=== PATIENT | female | born 1955 | race Caucasian/White ===

== ENCOUNTER 2021-08-24 07:53 | Outpatient (CLI) | payer MEDICARE, BC, SELFPAY ==
[2021-08-24 11:19] LABS: Albumin* 3.9 g/dL (3.3-5.0)
[2021-08-24 11:20] LABS: Chloride* 106 mmol/L (96-114); Potassium* 4.6 mmol/L (3.6-5.1); Sodium* 136 mmol/L (135-149)
[2021-08-24 11:22] LABS: Aspartate Amino Transferase* 24 U/L (12-35); Bilirubin Total* 0.3 mg/dL (0.1-1.5); Carbon Dioxide* 24 mmol/L (20-32); Cholesterol* 187 mg/dL (90-199); Creatinine* 0.9 mg/dL (0.5-1.5); Estimated Glomerular Filt Rate 70 ml/min; Total Protein* 6.1 g/dL (6.0-8.3)
[2021-08-24 11:23] LABS: Alanine Aminotransferase* 17 U/L (4-35); Alkaline Phosphatase* 68 U/L (40-150); Blood Urea Nitrogen* 15 mg/dL (7-30); Calcium* 9.6 mg/dL (8.4-10.6); Glucose* 100 mg/dL (60-115); HDL Cholesterol* 70 mg/dL (>=50); LDL Cholesterol Calculated 90 mg/dL (<100); Triglycerides* 134 mg/dL (40-149)
[2021-08-24 12:03] LABS: Thyroid Stimulating Hormone* 0.307 uIU/mL (0.270-4.20)
--- OUTSIDE RECORDS SUMMARY | 2021-09-14 17:08 | XMS_ITS | Continuity of Care Document ---
:1955 Author Organization [facility] Address [address] [address] [place] [address] Phone Care Team Providers Name Role Phone Unavailable Unavailable Unavailable Allergies, Adverse Reactions, Alerts Substance Reaction Status Criticality No Known Allergies Active No Informatio n Medications Medication Instructions Dosage Effective Dates Status Comment s (start - stop) Vitamin D3 100 mcg take 2 tablet by - Active (4,000 unit) capsule oral route every day Vitamin C 500 mg take 1 by Oral 1 - Active tablet route every day lutein 40 mg capsule - Active Probiotic 10 billion take 3 by Oral 3 - Active cell capsule route every day TURMERIC (unknown take 2 capsule by Not Available - Activ e strength) oral route every week 1500 mg each Toño Mag Zinc Plus D3 - Active 333 mg-133 unit-133 mg-5 mg tablet gabapentin 300 mg take 3 capsule by 900 MG - Active capsule ORAL route 3 times every day rizatriptan 10 mg take 1 Tablet by 10 MG - Active tablet oral route as needed magnesium 400 mg (as take 1 by oral 1 - Active magnesium oxide) route every day tablet omega 9-zgn-fny-fish take 1 Capsule by 1 Capsule - Activ e oil 1,000 mg (120 Oral route every mg-180 mg) capsule day trazodone 100 mg take 1 Tablet by 100 MG - Active tablet oral route every bedtime as needed rosuvastatin 5 mg take 1 tablet by 5 MG - Active tablet oral route every day levothyroxine 112 take 1 tablet by 112 MCG - Active mcg tablet oral route every day Procedures Procedure Date Offic/outpt E&m Estab Minor Offic/outpt E&m New Mod Sever Advance Directives Directive Yes / No Effective Date File Name No Information Encounters Encounter Practice Location Reason(s) Diagnoses Date Provider Provide rs Description For Visit Copied on Encounter Offic/outpt [facility] GI Constipation, No Re ferring E&m Estab [facility] Symptoms unspecified Information Pro vider: [facility], or constipation 1 Referral [address] Concerns typeAbnormal Self. [address], (chief CT scan, [facility] complaint) small bowel [place], [place], [id number], tel:[phone] [facility] No No [facility] Information [facility], [address] [address], [place], [place], [id number], [place] tel:[phone] Offic/outpt [facility] GI Constipation, No Re ferring E&m New Mod [facility] Symptoms unspecified Information P sravanthider: Destin FOSTER, or constipation 1 Cameron [address] Concerns typeAbnormal [place] [address], (chief CT scan, , [facility]) small bowel [address] [place], [place], [place], [id number], [facility], [address]. tel:[phone] tel:[phone] [id number] [facility] No No [facility], [address] [address], [place], [place], [id number], [place] tel:[phone] [facility] No Cori [facility], [address] [address], [address] [place], [place] [address], [place], [place], [place], [id number], [place], [id number], tel:[phone] tel:[phone] Family History Family Member Type Diagnosis Age At Onset Mother Problem (finding) Thyroid disorder Immunizations Vaccine Date Status Comments SARS-COV-2 (COVID-19) vaccine, administered N ote: [facility] bi-directional mRNA, spike protein, LNP, interf naty ; Source: Other preservative free, 100 mcg/0.5mL Registry dose Prevnar 13 administered Note: [facility] bi-di rectional interface ; Sour ce: Other Registry influenza, high dose seasonal, administered N ote: [facility] bi-directional preservative-free interface ; So urce: Other Registry tetanus toxoid, reduced administered Note: [facility] bi-directional diphtheria toxoid, and acellular interface ; Source: Other pertussis vaccine, adsorbed Fanny stry Influenza, injectable, Madin administered Not e: [facility] bi-directional Imelda Canine Kidney, interface ; Source: Other preservative free, quadrivalent Registry Afluria Qd administered Note: [facility] bi-directional interface ; Sour ce: Other Registry Afluria Qd administered Note: [facility] bi-directional interface ; Sour ce: Other Registry zoster vaccine, live administered Note: [facility] bi-directional interface ; Sour ce: Other Registry Influenza, seasonal, injectable, administered Note: [facility] bi-directional preservative free interface ; So urce: Other Registry Novel [id number], administered Note: M [facility] bi-directional preservative-free, injectable in [facility] ; Source: Other Registry Influenza, seasonal, injectable administered Note: [facility] bi-directional interface ; Sour ce: Other Registry tetanus toxoid, reduced administered Note: [facility] bi-directional diphtheria toxoid, and acellular interface ; Source: Other pertussis vaccine, adsorbed Fanny stry tetanus and diphtheria toxoids, administered Note: [facility] bi-directional adsorbed, preservative free, for interface ; Source: Other adult use (2 Lf of tetanus Simone try toxoid and 2 Lf of diphtheria toxoid) Payers Payer name Insurance type Covered democrat ID Authorization(s ) [employer] [id number] Social History Type Description Quantity Date Captured Comments Alcohol Use Details Unknown Caffeine Use Details Unknown Tobacco Use Status No Information Smoking Status undefined Sex Female Vital Signs Date / Height Weight BMI Pulse Blood Temperature Respiratory Body Head Head Circ. Wt./Quinn. BMI Pulse Inhaled Time: Rate Pressure Rate Surface Circumference Percenti le Percentile percentile Ox Ox Area 63.00 59.874 in kg 8 10:35 (132.00 kg/m AM lbs) monicaer (2) Chief Complaint And Reason For Visit From encounter dated '04/28/2020 10:35'. GI Symptoms or Concerns (chief complaint). Description: Kizzy Carolina is a 64-year-old female who presents for a followup visit. The patient did consent for visit being held over the computer and was the only person present on the call. The patient was referred to us in March for evaluation of an abnormal CAT scan. For further details of the history, please refer to my note from March 19.In late 2019, she was diagnosed with pneumonia and was given a Z-Matt as well as prednisone. She had a cracked tooth in early February and was given some amoxicillin. She began having some diarrhea. Stool testing for C. diff was checked, which was negative. She was empirically prescribed Flagyl, which was not helpful. She was then started on probiotics and encouraged to eat more fermented food which helpedslightly.She had an abdominal x-ray done which showed a moderate amount of stool in the colon. She was asked to do a Fleet enema and suppositories which were slightly helpful. She then had a CT of her abdomen and pelvis with IV contrast, which revealed moderately large amount of colonic stool and lessamount of gas scattered throughout the colon and rectum and the colon was described as tortuous and capacious. There were a few mildly thickened areas of the small intestine, but no ascites or lymphadenopathy. There was also a small esophageal sliding hiatal hernia. GI consultation was suggested for possible PillCam evaluation.The patient was having better bowel movements after the Fleet enemas and suppositories, but she was still having bowel movements only every 2 to 3 days which were soft and unformed.When I saw her for a virtual visit, I asked her to start doing MiraLax on a daily basis and if she developed the diarrhea, then decrease the dose to half a capful daily. We discussed further evaluation with MR enterography, which we completed on April 08. This was completely unremarkable with noabnormal evidence of small bowel or evidence of bowel wall thickening or mucosal hyperenhancement.She follows up today stating that she took MiraLax once and developed diarrhea, so she did not take it again. She subsequently has been using turmeric, probiotics, and rancho tea, which she states has been helpful and has reduced her abdominal discomfort and constipation. She states that she is still having bowel movements every 2 to 3 days; however, if she goes that long without a bowel movement, she will cook up some prunes and that helps produce bowel movements. Reason For Referral Reason For Referral No Information Plan Of Treatment Date Type Action Status Referral Ordered: ordered MRI Enterography WITHOUT And WIT H Contrast Appointment date/timeframe: 04/03/2020 History Of Present Illness Encounter Date Complaint History Of Present I llness GI Symptoms or Concerns Kizzy Carolina i s a 64-year-old female who presents for a [facility] visit. The patient did consent for visit be ing held over the computer and was the only per son present on the call. The patient was refe rred to us in March for evaluation of an abn ormal CAT scan. For further details of t he history, please refer to my note from .In late 2019, she was diagnosed wi th pneumonia and was given a Z-Matt as well as p rednisone. She had a cracked tooth in ear ly February and was given some amoxicillin. Nakul parada began having some diarrhea. Stool test ing for C. diff was checked, which was n egative. She was empirically prescrib ed Flagyl, which was not helpful. She was the n started on probiotics and encouraged to ea t more fermented food which helped slightl y.She had an abdominal x-ray done which juan manuel wed a moderate amount of stool in the colon. She was asked to do a Fleet enema and supp ositories which were slightly helpful. Nakul parada then had a CT of her abdomen and pelvis w ith IV co GI Symptoms or Concerns Kizzy Carolina i s a 64-year-old female who was referred to clinic b y Dr. Cameron Montgomery for consultation regardi ng constipation as well as an abnormal CAT scan . The patient did consent for the visit being held over the computer and was the only person present on the video call.The patient has a past medical history significant for hypo thyroidism, insomnia, restless legs syndro me, fibromyalgia, migraine headaches, dyslipide jaime, and neck pain.The patient states that she began having issues with diarrhea about 1 year ago. In late 2019, she states that she was diagnosed with pneumonia and was gi esme a Z-Matt as well as prednisone. Followin g this, she noted she had some difficulty urin ating. She saw her primary in February and that note was reviewed. She had a cracked tooth in ly February and was given a course of amoxicil luis carlos. When she was seen by her primary, stool t esting for C. diff was checked which was ne gatlian. She was empirically prescrib ed Flagyl, which was not helpfu Functional Status Date Functional Assessment No Information Instructions Date Instruction Additional Informati on Constipation Related to Constipat ion, unspecified constipation type Constipation Related to Constipat ion, unspecified constipation type Take one capful/packet (17 grams) of Rel ated to Constipation, unspecified Miralax daily constipation type Assessments Type Assessment Date assessment Constipation, unspecified constipation t ype assessment Abnormal CT scan, small bowel 1 impression Kizzy Carolina is a 64-year-old female w ith constipation and an abnormal CT scan. It is unclear if th e thickening seen on the CT scan was due to underdistention o r if she could have had a gastroenteritis, which I think is less likely. Since her MRI enterography was completely normal, I do not think further evaluation is needed. I reassured the pa tient regarding the small nature of the small hiatal hernia that was seen on the CT as she was worried that this would pr edispose her to esophageal disease and perforation. She is due for a surveillance colonoscopy later this year , which she will get completed in [place]. She can follow up with us on an as-needed basis. The patient agrees with this plan and will contact us with any questions. Patient Care Teams Name Effective Dates (start - stop) Status M braden No Information
== END 2021-08-24 07:54 | disposition home or self-care (01) ==
PROVIDERS: PCP Family Medicine; Visit Provider Family Medicine
DX: Z00.00 Encounter for general adult medical examination without abnormal findings (principal); E03.9 Hypothyroidism, unspecified; E78.5 Hyperlipidemia, unspecified; G47.00 Insomnia, unspecified; K64.4 Residual hemorrhoidal skin tags
CPT/HCPCS: 80053; 80061; 84443

== ENCOUNTER 2021-09-06 14:27 | Outpatient (CLI) | payer MEDICARE, BC, SELFPAY ==
--- NOTE | 2021-09-06 14:40 | CRLHL7_ITS ---
For Patients: As a result of the Century Cures Act, medical imaging exams and procedure reports are released immediately into your electronic medical record. You may view this report before your referring provider. If you have questions, please contact your health care provider. BILATERAL SCREENING MAMMOGRAM WITH COMPUTER-AIDED DETECTION AND TOMOSYNTHESIS TECHNIQUE: CC and MLO views were obtained. These mammographic images have been obtained using full-field digital technique. These mammographic images were interpreted with the benefit of computer-aided detection. Breast Tomosynthesis was used in this interpretation. COMPARISON FILM: 05/22/20, 05/09/2019, 06/08/2018. FINDINGS: The breasts are heterogeneously dense, which may obscure small masses IMPRESSION: There is no radiographic evidence for malignancy. ASSESSMENT: BI-RADS Category 2: Benign RECOMMENDATION: Routine screening mammogram in 1 year. A lay language report of this examination will be provided to the patient. Lukasz Castellon M.D. Diagnostic Radiologist [email or web address] AMBER/Dictated by: Lukasz Castellon MD @ 09/07/2021 10:34:00 AM (Electronically Signed)
== END 2021-09-06 14:28 | disposition home or self-care (01) ==
LOC: MAMMO 14:28
PROVIDERS: PCP Family Medicine; Visit Provider Family Medicine
DX: Z12.31 Encounter for screening mammogram for malignant neoplasm of breast (principal); R92.2 Inconclusive mammogram
CPT/HCPCS: 77063; 77067

== ENCOUNTER 2022-01-06 11:58 | Outpatient (CLI) | payer MEDICARE, BC, SELFPAY ==
--- OUTSIDE RECORDS SUMMARY | 2022-01-06 12:00 | XMS_ITS | Clinical Summary ---
:[address] [facility] Address [address] [place] [id number] Care Team Providers Name Role Phone Unknown, Md Unavailable Unavailable Cameron Montgomery Primary Care Provider Unavailable Allergies Active Allergy Reactions Severity Noted Date Comments Codeine High 03/04/2020 Other reaction( s): claustrophobia Medications Medication Sig Dispensed Refills Start Date End Date Status amitriptyline (ELAVIL) 0 11/30/2020 Active 10 mg oral tablet levothyroxine 0 11/26/2020 Activ e (SYNTHROID) 112 mcg oral tablet rosuvastatin (CRESTOR) 0 11/27/2020 Active 5 mg oral tablet traZODone (DESYREL) 100 0 10/08/2020 Active mg oral tablet magnesium oxide Daily 0 Acti ve (MAG-OX) 400 mg oral tablet rizatriptan (MAXALT) 5 Daily as needed 0 Active mg oral tablet topiramate (TOPAMAX) 25 Take 1 tablet 180 tablet 3 03/03/2021 Active mg oral tablet (25 mg) by mouth twice a day. predniSONE (DELTASONE) Take 1 tablet 15 tablet 0 03/04/2021 Active 10 mg oral tablet (10 mg) by mouth as directed. 5 day course for bad Migraine. 5 pills on day one. 4 Pills on day 2. 3 Pills on day 3. 2 Pills on day 4 and one pill on day 5. (5-4-3-2-1) galcanezumab-gnlm Inject 1 mL (120 3 mL 3 03/15/2021 Active (EMGALITY PEN) 120 mg) into the mg/mL SubQ PnIj muscle every 30 (thirty) days. First month should take two injections. Then every month. Active Problems Problem Noted Date Amnesia 03/03/2021 Dyslipidemia 03/03/2021 Encounter for initial preventive physical examination covered by Medicare 03/03/2021 Herpes simplex type 1 infection 03/03/2021 History of appendectomy 03/03/2021 History of carpal tunnel release of both wrists 2021 Coccydynia 12/14/2011 Displacement of lumbar intervertebral disc without mye lopathy 12/14/2011 Abnormal glandular Papanicolaou smear of cervix 2007 Overview: Formatting of this note might be differe nt from the original. 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 Plan of Treatment Health Maintenance Due Date Last Done Comments Colonoscopy 1955 Dexa Scan 1955 Hepatitis C Screening 1955 Mammogram Screening 1955 Medicare Wellness Visit 1955 Yearly Review of HCD 09/30/2003 Zoster Vaccine (2 of 3) 2014 08/04/2014 Pneumococcal 65+ (2 - PPSV23 if 08/20/2020 08/21/2019 available, else PCV20) COVID-19 Vaccine (5 - Booster for 07/03/2021 05/08/2021, , Moderna series) 05/05/2020, Additional history exists Influenza Vaccine (#1) 2021 11/05/2020, 11/23/2018, 11/23/2018, Additional history exists Adult Tetanus Booster 03/29/2028 03/29/2018, 10/27/2008, 02/06/1998, Additional history exists Insurance Payer Benefit Plan / Subscriber ID Effective Phone Address T ype Group Dates [employer] [id number] 2018-[place] [address] [place] [address] [phone] (Home) [address] [id number] Relationship Specialty Start Date End Date Unknown, PCP - Primary Care Clinic 11/30/20 NO ADDRESS/PHONE/FAX AFFILIATED Cameron Montgomery PCP - General 06/25/21
--- OUTSIDE RECORDS SUMMARY | 2022-01-06 12:00 | XMS_ITS | Clinical Summary ---
:1955 Author Organization [facility] [place] [address] Care Team Providers Name Role Phone Renetta Kaur Izabel Primary Care Provider Allergies No known active allergies Medications Medication Sig Dispensed Refills Start Date End Date Status VALTREX 500 MG TAB take 1000mg daily 0 10/27/2008 Active prn CALCIUM CARBONATE 2400 mg daily 0 10/27/2008 Active 1,000 MG TAB MULTIVITAMIN TAB take 1 tablet by 0 10/27/2008 Active oral route once daily with food glucosamine-chondroit Take 1 capsule by 0 09/09/2010 Active in, 500-400 mg, mouth 3 times (COSAMIN DS 500/400) daily. 500-400 mg Cap omega-3 fatty Take 1 capsule by 0 11/09/2011 Active acids-vitamin E (FISH mouth once daily. OIL) 1,000 mg cap cholecalciferol Take by mouth. 0 05/17/2012 Active (VITAMIN D) 1,000 unit capsule Vit C-Vit Take 1 capsule by 0 05/17/2012 A ctive F-Zylyrx-Usldyiuy mouth once daily. (OCUVITE LUTEIN) cap cyanocobalamin Take 1 tablet by 0 05/17/2012 Active (VITAMIN B-12) 1,000 mouth once daily. mcg tablet magnesium gluconate Take 1 tablet by 0 05/17/2012 Active (MAGONATE) 500 mg Tab mouth once daily. Vitamins-Lipotropics Take 3,000 Each by 0 05/17/2012 Active (LIPOFLAVOVIT) Tab mouth. amitriptyline TAKE 2-4 TABLETS 240 tablet 2 03/22/2013 Active (ELAVIL) 10 mg BY MOUTH AT tabletIndications: BEDTIME. Chronic pain syndrome traMADol (ULTRAM) 50 TAKE 1 TABLET BY 90 tablet 0 04/27/2013 Active mg tabletIndications: MOUTH 4 TIMES Degeneration of DAILY IF NEEDED cervical FOR PAIN. intervertebral disc medication order once daily. 2% 30 g 12 06/14/2013 Active composerIndications: progesterone Menopausal symptoms cream. Apply 1 ml to clean hairless skin daily. levothyroxine TAKE ONE TABLET BY 90 tablet 0 05/26/2016 Active (SYNTHROID) 100 mcg MOUTH ONCE DAILY tabletIndications: BEFORE BREAKFAST Hypothyroidism (acquired) cetirizine (ZYRTEC) Daily as needed 0 06/21/2021 Active 10 mg tablet docusate (COLACE) 100 2 X Week 0 Active mg capsule eletriptan (RELPAX) TAKE 1 TABLET IF 0 01/10/2021 Active 40 mg tablet HEADACHE RETURNS, THE DOSE MAY BE REPEATED AFTER 2 HRS, BUT NO MORE THAN 2/WEEK fluticasone furoate Daily 0 06/21/2021 Active (VERAMYST) 27.5 mcg/actuation nasal spray gabapentin Bedtime 0 Active (NEURONTIN) 300 mg capsule galcanezumab-gnlm Inject 120 mg 0 03/15/2021 Active (Emgality Pen) 120 intramuscular. mg/mL pen Lacto.acidophilus-Bif once daily. 0 Active .animalis 31 billion cell cap predniSONE Take 10 mg by 0 03/04/2021 Acti ve (DELTASONE) 10 mg mouth. tablet magnesium oxide once daily. 0 Ac tive (MAG-OX 400) 400 mg tablet pseudoephedrine Bedtime 0 Acti ve (SUDAFED) 30 mg tablet Psyllium Husk-Sucrose 2 X Week 0 Active 3.4 gram/7 gram powd rizatriptan (MAXALT) Daily as needed 0 Active 5 mg tablet rosuvastatin Bedtime 0 11/27/2020 Active (CRESTOR) 5 mg tablet topiramate (TOPAMAX) Take 25 mg by 0 03/03/2021 Active 25 mg tablet mouth in the morning and 25 mg in the evening. traZODone (DESYREL) Bedtime 0 10/08/2020 Active 100 mg tablet azelastine 137 Inhale 2 Sprays 30 mL 6 08/25/2021 Active mcg/actuation into affected (ASTELIN) nasal nostril(s) in the sprayIndications: morning and 2 Nonallergic rhinitis Sprays in the evening. Active Problems Problem Noted Date Fibromyalgia 01/10/2013 Displacement of lumbar intervertebral disc without mye lopathy 12/14/2011 Coccydynia 12/14/2011 Screen for colon cancer 12/07/2010 Overview: Colonoscopy 12/2010 normal repeat in 10 years Chronic pain syndrome 08/27/2010 Lichen sclerosus et atrophicus 07/06/2010 Herpetic gingivostomatitis 06/06/2007 Unspecified hypothyroidism 02/28/2007 Degeneration of cervical intervertebral disc 8 Brachial plexus lesions 02/28/2007 Mucous polyp of cervix 02/28/2007 Abnormal glandular Papanicolaou smear of cervix 2007 Overview: Cyro [id number]'s Resolved Problems Problem Noted Date Resolved Date Lichen planus 01/26/2010 07/06/2010 Encounters Date Type Specialty Care Team Description 01/05/2022 Lab Requisition Vu, Julieth Bray MD from Last 3 Months Immunizations Name Administration Dates Next Due Influenza A (H1N1), Inactivated (Age 1201/27/2009 6-35 Mos) Influenza Virus, Unspecified 11/05/2020, 11/23/2018, 018 Influenza, High-dose Inactivated 11/23/2018 Influenza, High-dose Quadrivalent 11/05/2020 Inactivated Influenza, IIV3 (Age 6-35 mos) 11/04/2010 Influenza, IIV3 (Age >=3 years) 10/26/2014, 01/10/2013, 04/2011, 11/04/2010, 10/27/2008, 01/01/2007 Influenza, IIV4 11/11/2016, 11/27/2015 Influenza,CCIIV4 PRESERV FREE 12/06/2017 Pneumococcal conj 13-Valent (Prevnar 08/21/2019 13) Td (Age >=7 Years) 02/06/1998, 07/20/1983 Tdap 03/29/2018, 10/27/2008 Zoster (Zostavax-ZVL, live) 08/04/2014 Family History Medical History Relation Name Comments Heart Disease Father [place] Psychiatric illness Maternal Grandfather dementi a Hyperlipidemia Mother Cancer Paternal Aunt Cancer Paternal Grandfather Hyperlipidemia Sister Cancer-breast No Family History Relation Name Status Comments Father Maternal Grandfather Mother Paternal Aunt Paternal Grandfather Sister Social History Tobacco Use Types Packs/Day Years Used Date Never Smoker Smokeless Tobacco: Never Used Tobacco Cessation: Counseling Given: Yes Alcohol Use Standard Drinks/Week Comments Yes 0 (1 standard drink = 0.6 oz pure alcoho l) minimal Alcohol Habits Answer Date Recorded How often do you have a drink containing alcohol? Not asked How many drinks containing alcohol do you have on a typical Not asked day when you are drinking? How often do you have six or more drinks on one occasion? No t asked Comment: minimal 01/10/2013 Sex Assigned at Date Recorded Not on file Obstetrics History Para Term AB IAB SAB Ectopic Multiple Living Live Births 3 3 3 Date Outcome GA Total Labor/2nd/3rd Weight Sex Delivery Anes PTL Vani A 1 A5 Name Clin Labor Para Para Para Last Filed Vital Signs Vital Sign Reading Time Taken Comments Blood Pressure 110/60 08/25/2021 9:54 AM CDT Pulse 82 08/25/2021 9:54 AM CDT Temperature 36.4 ??C (97.6 ??F) 08/25/2021 9:54 AM CDT Respiratory Rate 16 05/23/2014 1:17 PM CDT Oxygen Saturation 99% 08/25/2021 9:54 AM CDT Inhaled Oxygen Concentration - - Weight 58.5 kg (129 lb) 08/25/2021 9:54 AM CDT Height 157.5 cm (5' 2) 08/25/2021 9:54 AM CDT Body Mass Index 23.59 08/25/2021 9:54 AM CDT Plan of Treatment Health Maintenance Due Date Last Done Comments Depression screening for age 12+ 1965 Hepatitis C screening for age 0809/30/1971 18-79 Mammogram for age 45-75 01/10/2014 01/10/2013, 01/05/2011, 01/04/2011, Additional history exists Zoster (shingles) series for age 0809/29/2014 08/04/2014 50+ (2 of 3) Lipids for age 45-75 01/10/2018 01/10/2013, 12/20/2010, 02/28/2007, Additional history exists DEXA/DXA scan for age 65+ 2018 12/06/2010 Medicare Wellness for age 65+ 2018 Pneumococcal series for age 65+ (2 08/20/2020 08/21/2019 - PPSV23 if available, else PCV20) Colonoscopy through age 75 12/07/2020 12/07/2010, 1, 12/07/2010 COVID-19 vaccine series (5 - 07/03/2021 05/08/2021, 021, Booster for Moderna series) 05/05/2020, Addition al history exists Influenza for age 65+ 10/07/2021 11/05/2020, 11/05/2020, 11/23/2018, Additional history exists BMI (ht and wt on same day) for 08/25/2022 08/25/2021 age 18+ Tetanus booster 03/29/2028 03/29/2018, 10/27/2008, 02/06/1998, Additional history exists Tdap Completed 03/29/2018, 10/27/2008 Results Not on filefrom Last 3 Months Insurance Payer Benefit Plan / Subscriber ID Effective Dates Phone Addre ss Type Group [employer]UE [employer]OSS [place] BL[employer]OSS [id number] 2018-Present [address] [address] [place], [place] ONLY [id number] [id number] [place] [address] (Home) [facility] E [phone] [place] 9 (Work) [phone] Care Teams Embossing Machine Tender Relationship Specialty Start Date End Date Renetta Kaur DO PCP - General Family Practice 12/15/10
--- OUTSIDE RECORDS SUMMARY | 2022-01-06 12:00 | XMS_ITS | Encounter Summary ---
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 documented as of this encounter Plan of Treatment Not on filedocumented as of this encounter Visit Diagnoses Not on filedocumented in this encounter Care Teams Procurement Coordinator Relationship Specialty Start Date End Date Unknown, PCP - General 11/30/20 06/24/21 NO ADDRESS/PHONE/FAX AFFILIATED Unknown, PCP - Primary Care Clinic 11/30/20 NO ADDRESS/PHONE/FAX AFFILIATED documented as of this encounter
--- OUTSIDE RECORDS SUMMARY | 2022-01-06 12:00 | XMS_ITS | Encounter Summary ---
:1955 Author Organization [facility] Address [address] [place] [address] Care Team Providers Name Role Phone Unknown, Primary Care Provider Unavailable Unknown, Unavailable Unavailable Reason for Visit Reason Comments Follow up Encounter Details Date Type Department Care Team Description 12/14/2020 Virtual Visit [facility] Lianet Mayo graine syndrome (Primary Dx); Neurology - Tony Cool MD Neck pain; [place] [address] [place] [address] Occipital neuralgia, unspeci fied laterality [address] [place] [phone] Social History Tobacco Use Types Packs/Day Years Used Date Smoking Tobacco: Never Smokeless Tobacco: Never Sex Assigned at Date Recorded Female 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 documented as of this encounter Progress Notes Lianet Mayo MD - 12/14/2020 11:00 AM CST This visit was conducted with the use of a interactive audio and video Tele communication system that permits real-time communication between the patient and the provider. The patient provided consent for the virtual visit. Patient location:Home Physician location: [facility]. Chief complaint: Headaches Interval history: She felt the Occipital nerve block helped. She had a Migraine about 5 days after the procedure but after that she did not much better. The trigger point injections helped as well but she feels it is wearing off so her neck and shoulder stiffness is coming back. She has some occasional tension headaches and aspirin helps. Summary: Is here for an evaluation regarding headaches. She has a history of Fibromyalgia, and RLS. The headaches started in 2017 but have been progressively getting worse. Her headache frequency is once or twice a week. Usually pain scale is around a 5 or 6 but sometimes can go up to an 8. Quality of pain is d escribed as a pressure and icepick-like pain. Duration of the headache is days at a time. Alleviating factors are hot pack to the head or lying down in a quiet and dark room. Headache is associated with light and sound sensitivity and sometimes osmophobia. She has only 6-7 headache free days a month. Headaches are located in the front of the head and on both sides of the head. Is not aggravated by physical activity. She gets an Aura of an arc of bright flashing lights prior to a headache. Sometimes her fingers get cold and her nose becomes runny prior to a headache. Coughing,sneezing or having a bowel movement does not trigger a headache. Her vision is not that clear in general. She has tinnitus si nce 2008. Denies any eye redness, swelling or tearing. She has a family history of headaches. She has a history of head trauma with a prior concussion around 2014. Sleeps about 6 hours per day if she takes her Trazadone and Benadryl. Has tried Maxalt,Magnesium Trigger point injections, Occipital nerveblock. On review of outside records, the notes are consistent with the above symptoms. She had a Cervical spine MRI with significant Cervical spondylosis and prior ACDF. She had an MRI brain and does not have the results of these. 03/2020: Started Amitriptyline and decreased her Gabapentin to 900mg BID. 09/2020: Increased Amitriptyline to 20mg but was having palpitations so changed it to 10mg BID. Tapered Gabapentin to 600mg am. 10/2020: Had Occipital nerve block which helped significantly. PAST MEDICAL HISTORY Past Medical History: Diagnosis Date ??? High cholesterol MEDICATIONS Current Outpatient Medications: Medication Sig ??? amitriptyline (ELAVIL) 10 mg oral tablet ??? Eletriptan HBr 40 mg oral tablet ??? levothyroxine (SYNTHROID) 112 mcg oral tablet ??? rosuvastatin (CRESTOR) 5 mg oral tablet ??? traZODone (DESYREL) 100 mg oral tablet ALLERGIES Patient has no known allergies. SOCIAL HISTORY Social History Tobacco Use ??? Smoking status: Never Smoker ??? Smokeless tobacco: Never Used Substance Use Topics ??? Alcohol use: Not on file ??? Drug use: Not on file ASSESSMENT/PLAN: Is here for a follow up regarding headaches. Diagnoses and all orders for this visit: Migraine syndrome Neck pain Occipital neuralgia, unspecified laterality Other orders - amitriptyline (ELAVIL) 10 mg oral tablet; Historical - Eletriptan HBr 40 mg oral tablet; Historical - levothyroxine (SYNTHROID) 112 mcg oral tablet; Historical - rosuvastatin (CRESTOR) 5 mg oral tablet; Historical - traZODone (DESYREL) 100 mg oral tablet; Historical -MRI brain already completed. She will bring the CD and results at next visit. -For prophylactic therapy will continue Amitriptyline 10mg BID. When we tapered her Gabapentin off -For abortive therapy will continue Relpax. -Occipital Neuralgia: Did Occipital nerve block at last visit. She would like a repeat in the future. -Neck pain: Did TPI at last visit. She would like a repeat in the future as well. -Tension type Headache: Continue Naproxen 500mg PRN. -For RLS and Fibromyalgia: Continue Amitriptyline 10mg BID. -Some muscle twitching: If gets worse consider Baclofen in the future. -Follow up in a few weeks for TPI and Occipital nerve block if needed. [facility] Lianet Mayo M.D. ION WORKER documented in this encounter Plan of Treatment Not on filedocumented as of this encounter Visit Diagnoses Diagnosis Migraine syndrome - Primary Migraine with aura, without mention of i ntractable migraine without mention of status migrainosus Neck pain Cervicalgia Occipital neuralgia, unspecified lateral ity documented in this encounter Care Teams Mandrel Press Hand Relationship Specialty Start Date End Date Marlon, PCP - General 11/30/20 06/24/21 NO ADDRESS/PHONE/FAX AFFILIATED Unknown, PCP - Primary Care Clinic 11/30/20 NO ADDRESS/PHONE/FAX AFFILIATED documented as of this encounter
--- OUTSIDE RECORDS SUMMARY | 2022-01-06 12:00 | XMS_ITS | Encounter Summary ---
:1955 Author Organization [facility] Address [address] [place] [address] Care Team Providers Name Role Phone Unknown, Primary Care Provider Unavailable Unknown, Md Unavailable Unavailable Reason for Visit Reason Comments Follow up (Routine) - Authorized Specialty Diagnoses / Procedures Referred By Contact Refer red To Contact Neurology Diagnoses Migraine, unspecified, not intractable, without status migrainosus Cervicalgia TPI/Migraines/ok per Lianet Weller MD Procedures INJECT TRIGGER POINT, 1 OR 2 INJECT TRIGGER POINTS, > 3 INJECTION [address] [facility] [address] [address] Phone: Fax: Referral ID Status Reason Start Date Expiration Date Visits V isits Requested Authorized [id number] Authorized 2 2 Encounter Details Date Type Department Care Team Description 12/23/2020 Office Visit [facility] of Lianet Mayo Moses harrison syndrome (Primary Dx); Neurology - Alix Cool MD Occipital neuralgia, unspecified lateral ity; [facility] [address] [place] Myalgia, other site [address] [place] [address] [address] [place], [place] [phone] Social History Tobacco Use Types Packs/Day Years Used Date Smoking Tobacco: Never Smokeless Tobacco: Never Sex Assigned at Date Recorded Female 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 documented as of this encounter Progress Notes Lianet Mayo MD - 12/23/2020 10:30 AM CST Chief complaint: Headaches Interval history: She continues to have headaches and neck pain.It is was pretty bad and woke her up. She took two extra Gabapentin which helped somewhat but made her very woozy. She has been having some worsening Occipital Neuralgia which is radiating to her neck and top of her head. Her left hand twitching has gone away. Summary: Is here for an evaluation regarding headaches. She has a history of Fibromyalgia, and RLS. The headaches started in 2016 but have been progressively getting worse. Her [...] here for a follow up regarding headaches. Kizzy was seen today for follow up. Diagnoses and all orders for this visit: Migraine syndrome Occipital neuralgia, unspecified laterality Myalgia, other site -MRI brain already completed. She will bring the CD and results at next visit. -For prophylactic therapy will continue Amitriptyline 10mg BID. -For abortive therapy will continue Relpax. -Occipital Neuralgia: Did Occipital nerve block at last visit. She would like a repeat in the future. -Neck pain: Did TPI at last visit. She would like a repeat in the future as well. -Tension type Headache: Continue Naproxen 500mg PRN. -For RLS and Fibromyalgia: Continue Amitriptyline 10mg BID. -Some muscle twitching: Resolved. If starts up again consider Baclofen in the future. -Follow up in 3 months. Trigger point injection procedure note: The procedure risks, hazards and alternatives were discussed with the patient and a proper consent was obtained. The area over the myofascial spasm was prepped with alcohol utilizing sterile technique.A 27-gauge 1 1/4 inch needle was placed in the center of the myofascial spasms and a negative aspiration was performed. Then 0.5-1ml of 1% lidocaine was injected into each trigger point. The patient tolerated the procedure well without any apparent difficulties or complications. 4 different muscles where done. Procedure note - Bilateral Greater and lesser occipital nerve block Occipital nerve block was performed after Occipital nerve block was performed after the procedure risks, hazards and alternatives were discussed with the patient and a proper consent was obtained. The area of cleaned with alcohol. Using a 27# needle a greater and lesser occipital nerve block was performed bilaterally side using 5 cc of 1% lidocaine. A total of 4 injections were performed. Patient tolerated the procedure well with no complications. The area of cleaned with alcohol. Using a 27# needlea greater and lesser occipital nerve block was performed bilaterally side using 5 cc of 1% lidocaine. A total of 4 injections were performed. Patient tolerated the procedure well with no complications. [facility] Lianet Mayo M.D. NT ACQUISITION ASSISTANT documented in this encounter Plan of Treatment Not on filedocumented as of this encounter Visit Diagnoses Diagnosis Migraine syndrome - Primary Migraine with aura, without mention of i ntractable migraine without mention of status migrainosus Occipital neuralgia, unspecified lateral ity Myalgia, other site documented in this encounter Care Teams Manager [place] Relationship Specialty Start Date End Date Unknown, PCP - General 11/30/20 06/24/21 NO ADDRESS/PHONE/FAX AFFILIATED Unknown, PCP - Primary Care Clinic 11/30/20 NO ADDRESS/PHONE/FAX AFFILIATED documented as of this encounter
--- OUTSIDE RECORDS SUMMARY | 2022-01-06 12:00 | XMS_ITS | Encounter Summary ---
:1955 Author Organization [facility] Address [address] [place] [address] Care Team Providers Name Role Phone Unknown, Primary Care Provider Unavailable Unknown, Md Unavailable Unavailable Reason for Visit (Routine) - Closed Specialty Diagnoses / Procedures Referred By Contact Refer red To Contact Diagnoses Pulsatile tinnitus Lianet Mayo MD Procedures MRA HEAD W/O CON [address] [place], [place] [address] Referral ID Status Reason Start Date Expiration Date Visits Requ ested Visits Authorized [id number] Closed 02/24/2021 08/22/2021 1 1 Encounter Details Date Type Department Care Team Description 02/24/2021 Ancillary Procedure [facility] of Pulsatile tinnitus Neurology - 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 documented as of this encounter Miscellaneous Notes Result Encounter Note - Lianet Mayo MD - 02/24/2021 2:00 PM OVER SHORT AND DAMAGE CLERK Called to inform patient however was not available so left a voicemail stating that she does have a vascular loop near the left internal auditory canal which could be causing the pulsatile tinnitus. She has an appointment next week so can go over the results more in detail at her appointment. SHORT AND DAMAGE CLERK documented in this encounter Plan of Treatment Not on filedocumented as of this encounter Procedures Procedure Name Priority Date/Time Associated Diagnosis Comme nts MRA HEAD W/O CON Routine 02/24/2021 2:47 PM Pulsatile tinnitus Results for this OVER SHORT AND DAMAGE CLERK procedure are i n the results section. documented in this encounter Results MRA HEAD W/O CON (02/24/2021 2:47 PM OVER SHORT AND DAMAGE CLERK) Anatomical Region Laterality Modality Head Magnetic Resonance Specimen (Source) Anatomical Collection Method Collection Time Re ceived Time Location / / Volume Laterality 02/24/2021 2:10 PM OVER SHORT AND DAMAGE CLERK Impressions 02/24/2021 2:13 PM OVER SHORT AND DAMAGE CLERK 1. No significant intracranial stenosis evident. No aneurysm or vascular malformation. 2. 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 SIGNED BY: Chuck Lopez M.D. Narrative 02/24/2021 2:13 PM OVER SHORT AND DAMAGE CLERK EXAM: ??MRA HEAD W/O CON 02/24/2021 CLINICAL INFORMATION: ??Pulsatile tinnit us TECHNIQUE: 3-D [id number] [place] MR angiography was performed. CONTRAST: None. COMPARISON: None. FINDINGS: ?? There is a prominent vascular loop exten ding into the left internal auditory canal. No significant stenosis along the intrad ural vertebral arteries. There is a normal vertebrobasilar confluence. There is a normal caliber basilar artery. Posterior cerebral arteries normal in caliber. There is marked tortuosity of the right internal carotid artery at the base of the skull. No significant stenosis identified along the intracranial portions of the internal carotid arteries. Anterior ce rebral arteries normal caliber. Middle c erebral arteries are normal in caliber. Procedure Note Chuck Lopez MD - 02/24/2021Formatting o f this note might be different from the original. EXAM: MRA HEAD W/O CON 02/24/2021 CLINICAL INFORMATION: Pulsatile tinnitus TECHNIQUE: 3-D [id number] [place] MR angiography was performed. CONTRAST: None. COMPARISON: None. FINDINGS: There is a prominent vascular loop exten ding into the left internal auditory canal. No significant stenosis along the intrad ural vertebral arteries. There is a normal vertebrobasilar confluence. There is a normal caliber basilar artery. Posterior cerebral arteries normal in caliber. There is marked tortuosity of the right internal carotid artery at the base of the skull. No significant stenosis identified along the intracranial portions of the internal carotid arteries. Anterior cerebral arteries normal caliber. Middle cerebral arteries are normal in caliber. IMPRESSION 1. No significant intracranial stenosis evident. No aneurysm or vascular malformation. 2. 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 SIGNED BY: Chuck Lopez M.D. Lianet Mayo MD MRI ORDERABLE documented in this encounter Visit Diagnoses Diagnosis Pulsatile tinnitus Unspecified tinnitus documented in this encounter Care Teams Main Galley Scullion Relationship Specialty Start Date End Date Unknown, PCP - General 11/30/20 06/24/21 NO ADDRESS/PHONE/FAX AFFILIATED Unknown, PCP - [facility] Clinic 11/30/20 NO ADDRESS/PHONE/FAX AFFILIATED documented as of this encounter
--- OUTSIDE RECORDS SUMMARY | 2022-01-06 12:00 | XMS_ITS | Encounter Summary ---
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 documented as of this encounter Plan of Treatment Not on filedocumented as of this encounter Visit Diagnoses Not on filedocumented in this encounter Care Teams Occupational Therapy Co Director Relationship Specialty Start Date End Date Unknown, PCP - General 11/30/20 06/24/21 NO ADDRESS/PHONE/FAX AFFILIATED Unknown, PCP - [facility] Care Clinic 11/30/20 NO ADDRESS/PHONE/FAX AFFILIATED documented as of this encounter
--- OUTSIDE RECORDS SUMMARY | 2022-01-06 12:00 | XMS_ITS | Encounter Summary ---
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 documented as of this encounter Plan of Treatment Not on filedocumented as of this encounter Visit Diagnoses Not on filedocumented in this encounter Care Teams Hospice Patient Care Secretary Relationship Specialty Start Date End Date Unknown, PCP - General 11/30/20 06/24/21 NO ADDRESS/PHONE/FAX AFFILIATED Unknown, PCP - [facility] Clinic 11/30/20 NO ADDRESS/PHONE/FAX AFFILIATED documented as of this encounter
--- OUTSIDE RECORDS SUMMARY | 2022-01-06 12:00 | XMS_ITS | Encounter Summary ---
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 documented as of this encounter Plan of Treatment Not on filedocumented as of this encounter Visit Diagnoses Not on filedocumented in this encounter Care Teams Pharmacy Services Representative Relationship Specialty Start Date End Date Unknown, PCP - General 11/30/20 06/24/21 NO ADDRESS/PHONE/FAX AFFILIATED Unknown, PCP - [facility] Clinic 11/30/20 NO ADDRESS/PHONE/FAX AFFILIATED documented as of this encounter
--- OUTSIDE RECORDS SUMMARY | 2022-01-06 12:00 | XMS_ITS | Encounter Summary ---
:1955 Author Organization [facility] Address [address] [place] [address] Care Team Providers Name Role Phone Unknown, Primary Care Provider Unavailable Unknown, Md Unavailable Unavailable Reason for Visit (Routine) - Closed Specialty Diagnoses / Procedures Referred By Contact Refer red To Contact Diagnoses Pulsatile tinnitus Lianet Mayo MD Procedures MRA CERVICAL VESSELS W/O&W CON MRA CERVICAL VESSELS W CON [address] [place], [place] [address] Referral ID Status Reason Start Date Expiration Date Visits Requ ested Visits Authorized [id number] Closed 02/24/2021 08/22/2021 1 1 Encounter Details Date Type Department Care Team Description 02/24/2021 Ancillary Procedure [facility] [address] [place] [address]. 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 documented as of this encounter Plan of Treatment Not on filedocumented as of this encounter Procedures Procedure Name Priority Date/Time Associated Diagnosis Comme nts MRA CERVICAL Routine 02/24/2021 3:19 PM Pulsatile tinnitus Res ults for this VESSELS W/O&W CON SUPERVISOR BIT AND SHANK DEPARTMENT procedure are in the results section. documented in this encounter Results MRA CERVICAL VESSELS W/O&W CON (02/24/2021 3:19 PM SUPERVISOR BIT AND SHANK DEPARTMENT) Anatomical Region Laterality Modality Neck Magnetic Resonance Specimen (Source) Anatomical Collection Method Collection Time Re ceived Time Location / / Volume Laterality 02/24/2021 3:41 PM SUPERVISOR BIT AND SHANK DEPARTMENT Impressions 02/24/2021 3:46 PM SUPERVISOR BIT AND SHANK DEPARTMENT No significant extracranial arterial stenosis identified. SIGNED BY: Chuck Lopez M.D. Narrative 02/24/2021 3:46 PM SUPERVISOR BIT AND SHANK DEPARTMENT EXAM: ??MRA CERVICAL VESSELS W/O&W CON 02/24/2021 CLINICAL INFORMATION: ??Pulsatile Tinnit us. TECHNIQUE: Time of flight and postcontra st carotid and vertebral MR angiography was performed. CONTRAST: 10 cc of intravenous Gadavist was administered during the exam. COMPARISON: MRI cervical spine November FINDINGS: ?? AORTIC ARCH: Aortic arch and proximal gr eat vessels demonstrate a normal appearance. No evidence of aneurysm or significant atherosclerotic disease. RIGHT CAROTID: There is some susceptibil ity artifact along the mid right common carotid artery as seen on the prior cervical spine MRI. No stenosis identified along the right common carotid artery or cervical internal carotid artery.. LEFT CAROTID: Widely patent without abno rmality. POSTERIOR CIRCULATION: No significant st enosis along either extradural vertebral artery. Procedure Note Chuck Lopez MD - 02/24/2021Formatting o f this note might be different from the original. EXAM: MRA CERVICAL VESSELS W/O&W CON 02/06 CLINICAL INFORMATION: Pulsatile Tinnitus . TECHNIQUE: Time of flight and postcontra st carotid and vertebral MR angiography was performed. CONTRAST: 10 cc of intravenous Gadavist was administered during the exam. COMPARISON: MRI cervical spine November FINDINGS: AORTIC ARCH: Aortic arch and proximal gr eat vessels demonstrate a normal appearance. No evidence of aneurysm or significant atherosclerotic disease. RIGHT CAROTID: There is some susceptibil ity artifact along the mid right common carotid artery as seen on the prior cervical spine MRI. No stenosis identified along the right common carotid artery or cervical internal carotid artery.. LEFT CAROTID: Widely patent without abno rmality. POSTERIOR CIRCULATION: No significant st enosis along either extradural vertebral artery. IMPRESSION No significant extracranial arterial delio nosis identified. SIGNED BY: Chuck Lopez M.D. Lianet Mayo MD MRI ORDERABLE documented in this encounter Visit Diagnoses Diagnosis Pulsatile tinnitus Unspecified tinnitus documented in this encounter Administered Medications Inactive Administered Medications - up to 3 most recent administrations Medication Order MAR Action Action Date Dose Rate Site gadobutroL (GADAVIST) 10 mmol/10 mL Given 02/24/2021 3:19 PM SUPERVISOR BIT AND SHANK DEPARTMENT 10 mL (1 mmol/mL) solution 1-10 mL 1-10 mL, Intravenous, INTRA-PROCEDURE ONE TIME DOSE NEEDED, 1 dose, Starting on Mon02/24/21 at 1519, Until Mon02/24/21 at 1519, per procedure documented in this encounter Care Teams Timber Watchman Relationship Specialty Start Date End Date Unknown, PCP - General 11/30/20 06/24/21 NO ADDRESS/PHONE/FAX AFFILIATED Unknown, PCP - [facility] Care Clinic 11/30/20 NO ADDRESS/PHONE/FAX AFFILIATED documented as of this encounter
--- OUTSIDE RECORDS SUMMARY | 2022-01-06 12:00 | XMS_ITS | Encounter Summary ---
:1955 Author Organization [facility] Address [address] [place] [address] Care Team Providers Name Role Phone Unknown, Md Primary Care Provider Unavailable Unknown, Md Unavailable Unavailable Reason for Visit (Routine) - Closed Specialty Diagnoses / Procedures Referred By Contact Refer red To Contact Diagnoses Pulsatile tinnitus Lianet Mayo MD Procedures MRV BRAIN W/O CON [address] [place], [place] [address] Referral ID Status Reason Start Date Expiration Date Visits Requ ested Visits Authorized [id number] Closed 02/24/2021 08/22/2021 1 1 Encounter Details Date Type Department Care Team Description 02/24/2021 Ancillary Procedure [facility] [address] [place] [address]. 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 documented as of this encounter Plan of Treatment Not on filedocumented as of this encounter Procedures Procedure Name Priority Date/Time Associated Diagnosis Comme nts MRV BRAIN W/O CON Routine 02/24/2021 3:33 PM Pulsatile tinnitu s Results for this MANUFACTURING MAINTENANCE MANAGER procedure are i n the results section. documented in this encounter Results MRV BRAIN W/O CON (02/24/2021 3:33 PM MANUFACTURING MAINTENANCE MANAGER) Anatomical Region Laterality Modality Head Magnetic Resonance Specimen (Source) Anatomical Collection Method Collection Time Re ceived Time Location / / Volume Laterality 02/24/2021 2:14 PM MANUFACTURING MAINTENANCE MANAGER Impressions 02/24/2021 2:45 PM MANUFACTURING MAINTENANCE MANAGER Normal exam. SIGNED BY: Chuck Lopez M.D. Narrative 02/24/2021 2:45 PM MANUFACTURING MAINTENANCE MANAGER EXAM: ??MRV BRAIN W/O CON 02/24/2021 CLINICAL INFORMATION: ??Pulsatile tinnit us TECHNIQUE: Time of flight cerebral MR ve nography was performed. CONTRAST: None. COMPARISON: None. FINDINGS: ?? Superior sagittal sinus and adjacent cor tical veins are widely patent without abnormality. Transverse and sigmoid venous sinuses ar e patent bilaterally. The deep cerebral venous system is well demonstrated on the source images, and it is widely patent without abnormality. Procedure Note Chuck Lopez MD - 02/24/2021Formatting o f this note might be different from the original. EXAM: MRV BRAIN W/O CON 02/24/2021 CLINICAL INFORMATION: Pulsatile tinnitus TECHNIQUE: Time of flight cerebral MR ve nography was performed. CONTRAST: None. COMPARISON: None. FINDINGS: Superior sagittal sinus and adjacent cor tical veins are widely patent without abnormality. Transverse and sigmoid venous sinuses ar e patent bilaterally. The deep cerebral venous system is well demonstrated on the source images, and it is widely patent without abnormality. IMPRESSION Normal exam. SIGNED BY: Chuck Lopez M.D. Lianet Mayo MD MRI ORDERABLE documented in this encounter Visit Diagnoses Diagnosis Pulsatile tinnitus Unspecified tinnitus documented in this encounter Care Teams Sap Business Intelligence Consultant Relationship Specialty Start Date End Date Unknown, PCP - General 11/30/20 06/24/21 NO ADDRESS/PHONE/FAX AFFILIATED Unknown, PCP - [facility] Care Clinic 11/30/20 NO ADDRESS/PHONE/FAX AFFILIATED documented as of this encounter
--- OUTSIDE RECORDS SUMMARY | 2022-01-06 12:01 | XMS_ITS | Clinical Summary ---
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 Plan of Treatment Health Maintenance Due Date Last Done Comments ADVANCE CARE PLANNING 1955 ANNUAL REVIEW OF HM ORDERS 1955 CT COLONOGRAPHY 1955 DEXA 1955 FIT-DNA (Cologuard) 1955 FIT 1955 FLEX SIG 1955 MAMMO SCREENING 1955 COVID-19 Vaccine (#1) 04/01/1954 COLONOSCOPY 09/30/1963 COLORECTAL CANCER SCREENING 09/30/1963 HEPATITIS C SCREENING 09/30/1971 DTAP/TDAP/TD IMMUNIZATION 07/21/1983 07/20/1983 (1 - Tdap) LIPID [id number] ZOSTER IMMUNIZATION (2 of 2014 08/04/2014 3) FALL RISK ASSESSMENT 2018 MEDICARE ANNUAL WELLNESS 2018 VISIT Pneumococcal Vaccine: 65+ 08/20/2020 08/21/2019 Years (2 - PPSV23 if available, else PCV20) PHQ-2 (once per calendar 02/06/2021 year) INFLUENZA VACCINE (#1) 2021 11/23/2018, 12/06/2017, 11/11/2016, Additional history exists IPV IMMUNIZATION Aged Out No longer eligi ble based on patient 's age to complete this topic MENINGITIS IMMUNIZATION Aged Out No longe r eligible based on patient 's age to complete this topic Insurance Payer Benefit Plan / Subscriber ID Effective Phone Address T ype Group Dates MEDICARE MEDICARE FOR HB [id number] 2020-Prese [phone] ATTN CLAIMS Medicare SUPPLEMENT nt [address] [place] [address] BCBS [place] [id number] 2019-Prese [phone] [address] [address] PPO BLUE nt 00 [place] [address] [phone] 112 5 [facility] 9 (Home) [place] [phone] [place] [employer] Self 1955 [phone] [facility] 9 (Home) [place] [phone] Care Teams Cooker Operator Relationship Specialty Start Date End Date Cameron Montgomery PCP - General Family Medicine 04/08/20 [facility] [address] [place] [address]
--- OUTSIDE RECORDS SUMMARY | 2022-01-06 12:01 | XMS_ITS | Encounter Summary ---
:1955 Author Organization [facility] Address [address] [place] [address] Care Team Providers Name Role Phone Unavailable Primary Care Provider Unavailable Encounter Details Date Type Department Care Team Description 09/30/2019 Virtual Visit [facility] Jacobo Madsen PA-C [address] [facility] [address] [place] [address] [place] [address] [phone] Social History Tobacco Use Types Packs/Day Years Used Date Smoking Tobacco: Never Assessed Sex Assigned at Date Recorded Female 04/07/2020 8:36 PM KENNEL HAND documented as of this encounter Progress Notes Jacobo Madsen PA-C - 09/30/2019 1:11 PM CDT Date: 09/30/2019 13:10:28 Clinician: Jacobo Madsen Clinician Patient: Kizzy Carolina Patient : 1955 Patient Address: [address] [place] [id number] Patient Visit Protocol: URI Patient Summary: Kizzy is a 64 year old ( : 1955 ) female who initiated a Visit for COVID-19 (Coronavirus) evaluation and screening. When asked the question Please sign me up to receive news,health information and promotions from [facility] Kizzy responded No. When asked when her symptoms started, Kizzy reported that she does not have any symptoms. She denies having recent facial or sinussurgery in the past 60 days and taking antibiotic medication in the past month. Pertinent COVID-19 (Coronavirus) information In the past 14 days, Kizzy has not worked in a congregate living setting. She does not work or volunteer as healthcare worker or a quality control industrial engineer and does not work or volunteerin a healthcare facility. Kizzy also has not lived in a congregate living setting in the past 14 days. She does not live with a healthcare worker. Kizzy has had a close contact with a laboratory-confirmed COVID-19 patient in the last 14 days. She was not exposed at her work. Additional information about contact with COVID-19 (Coronavirus) patient as reported by the patient (free text): John Adamson 09-27-2019 visitor at my home Patient reported they are not living in the same household with a COVID-19positive patient. Patient was in an enclosed space for greater than 15 minutes with a COVID-19 patient. Since January 2019, Kizzy and has not had upper respiratory infection or influenza-like illness.Has not been diagnosed with lab-confirmed COVID-19 test Pertinent medical history Kizzy does not getyeast infections when she takes antibiotics. Kizzy does not need a return to work/school note. Weight: 132 lbs Kizzy does not smoke or use smokeless tobacco. Weight: 132 lbs MEDICATIONS: gabapentin oral, levothyroxine oral, ALLERGIES: NKDA Clinician Response: Dear Kizzy, Your symptoms show that you may have coronavirus (COVID-19). This illness can cause fever, cough and trouble breathing. Many people get a mild case and get better on their own. Some people can get very sick. What should I do? We would like to test you for this virus. 1.Please call [phone] to schedule your visit. Explain that you were referred by [facility] to have a COVID-19 test. Be ready to share your [facility] visit ID number. The following will serve as your written order for this COVID Test, ordered by me, for the indication of suspected COVID [Z20.828]: The testwill be ordered in [facility], our electronic health record, after you are scheduled. It will show as ordered and authorized by Chandana Barajas MD. Order: COVID-19 (Coronavirus) PCR for SYMPTOMATIC testing from [facility]. 2. When it's time for your COVID test: Stay at least 6 feet away from others. (If someone will drive you to your test, stay in the backseat, as far away from the pole truck driver as you can.) Cover your mouth and nose with a mask, tissue or washcloth. Go straight to the testing site. Don't make any stopson the way there or back. 3.Starting now: Stay home and away from others (self-isolate) until: You've had no fever---and no medicine that reduces fever---for one full day (24 hours). And... Your other symptoms have gotten better. For example, your cough or breathing has improved. And... At least 10 days have passed since your symptoms started. During this time, don't leave the house except for testing or medical care. Stay in your own room, even for meals. Use your own bathroom if you can. Stay awayfrom others in your home. No hugging, kissing or shaking hands. No visitors. Don't go to work, school or anywhere else. Clean high touch surfaces often (doorknobs, counters, handles, etc.). Use a household cleaning spray or wipes. You'll find a full list of all around gear machine operator on the EPA website: www.epa.gov/pe sticide-registration/gbho-j-mhqbxspvurbqj-lqs-rtldmdl-idku-cov-2. Cover your mouth and nose with a mask, tissue or washcloth to avoid spreading germs. Wash your hands and face often. Use soap and water. Caregivers in these groups are at risk for severe illness due to COVID-19: o People 65 years and older o People who live in a detention or long-term care facility o People with chronic disease (lung, heart, cancer, diabetes, kidney, liver, immunologic) o People who have a weakened immune system, including those who: Are in cancer treatment Take medicine that weakens the immune system, such as corticosteroids Had a bone marrow or organ transplant Have an immune deficiency Have poorly controlled HIV or AIDS Are obese (body mass index of 40 or higher) Smoke regularly o Caregivers should wear gloves while washing dishes, handling laundry and cleaning bedrooms and bathrooms. o Use caution when washing and drying laundry: Don't shake dirty laundry, and use the warmest water setting that you can. o For more tips, go to www.cdc.gov/coronavirus/2019-ncov/downloads/10Things.pdf. 4.Sign up for [facility]. We know it's scary to hear that you might have COVID-19. We want to track your symptoms to makesure you're okay over the next 2 weeks. Please look for an email from [facility]---this is a free,online program that we'll use to keep in touch. To sign up, follow the link in the email. Learn moreat [email or web address] How can I take care of myself? Get lots of rest. Drink extra fluids (unless a doctor has told you not to). Take Tylenol (acetaminophen) for fever or pain. If you have liver or kidney problems, ask your family doctor if it's okay to take Tylenol. Adults can take either: 650 mg (two 325 mg pills) every 4 to 6 hours, or... 1,000 mg (two 500 mg pills) every 8 hours asneeded. Note: Don't take more than 3,000 mg in one day. Acetaminophen is found in many medicines (both prescribed and oruk-rhd-bwukumb medicines). Read all labels to be sure you don't take too much. For children, check the Tylenol bottle for the right dose. The dose is based on the child's age or weight. If you have other health problems (like cancer, heart failure, an organ transplant or severe kidney disease): Call your specialty clinic if you don't feel better in the next 2 days. Know when to call 911. Emergency warning signs include: Trouble breathing or shortness of breath Pain or pressure in the chest that doesn't go away Feeling confused like you haven't felt before, or not being able to wake up Bluish-colored lips or face. Where can I get more information? [employer] -- About COVID-19: [email or web address] CDC -- What to Do If You're Sick: www.cdc.gov/coronavirus/2019-ncov/about/qbcfw-gbio-yzqs.html CDC -- Ending Home Isolation: www.cdc.gov/coronavirus/2019-ncov/hcp/di avcnalafi-dt-tvhg-patients.html CDC -- Caring for Someone: www.cdc.gov/coronavirus/2019-ncov/ob-ayq-ksr-sick/wcfe-cjz-jnpynyd.html [facility] -- Interim Guidance for Hospital Discharge to Home: www.health.[facility]./diseases/coronavirus/hcp/hospdischarge.pdf [facility] clinical trials (COVID-19research studies): clinicalaffairs.[facility]/mod-xqcnjrtr-drxgia Below are the COVID-19 hotlines at the [facility] ([facility]). Interpreters are available. For health questions: Call [phone] or (7 a.m. to 7 p.m.) For questions about schools and childcare: Call [phone] or (7 a.m. to 7 p.m.) Diagnosis: Contact with and (suspected) exposure to other viral communicable diseases Diagnosis ICD: Z20.828 documented in this encounter Plan of Treatment Not on filedocumented as of this encounter Visit Diagnoses Not on filedocumented in this encounter
--- OUTSIDE RECORDS SUMMARY | 2022-01-06 12:01 | XMS_ITS | Encounter Summary ---
:1955 Author Organization [facility] Address [address] [place] [address] Care Team Providers Name Role Phone Cameron Montgomery Primary Care Provider Reason for Referral Diagnostic Imaging MRI (Routine) - Closed Specialty Diagnoses / Procedures Referred By Contact Refer red To Contact Radiology. Diagnoses Constipation, unspecified constipation type Abnormal CT scan, small bowel Vivek Sepulveda PA-C Mri Procedures MR Enterography wo and w Contrast [facility] [address] [place], [place] [phone] Fax: Referral ID Status Reason Start Date Expiration Date Visits Requ ested Visits Authorized [id number] Closed 03/20/2020 03/20/2021 1 [facility] Reason for Visit Diagnostic Imaging MRI (Routine) - Closed Specialty Diagnoses / Procedures Referred By Contact Refer red To Contact Radiology. Diagnoses Constipation, unspecified constipation type Abnormal CT scan, small bowel Vivek Sepulveda PA-C Mri Procedures MR Enterography wo and w Contrast [facility] [address] [place], [place] [phone] Fax: Referral ID Status Reason Start Date Expiration Date Visits Requ ested Visits Authorized [id number] Closed 03/20/2020 03/20/2021 1 1 Encounter Details Date Type Department Care Team Description 04/08/2020 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 documented as of this encounter Plan of Treatment Not on filedocumented as of this encounter Procedures Procedure Name Priority Date/Time Associated Diagnosis Comme nts MR ENTEROGRAPHY W/O Routine 04/08/2020 1:40 PM Constipation, R esults for this AND W CONTRAST YOUTH COUNSELOR unspecified procedure are in constipation typ e the results Abnormal CT scan, section. small bowel documented in this encounter Results MR Enterography wo and w Contrast (04/08/2020 1:40 PM YOUTH COUNSELOR) Anatomical Region Laterality Modality Abdomen/Pelvis, SUBRAD MR BODY, UMP MR BODY, RAD MR Magnetic Resonance Specimen (Source) Anatomical Location Collection Method / Collectio n Time Received Time / Laterality Volume Impressions 04/08/2020 3:57 PM YOUTH COUNSELOR IMPRESSION: Unremarkable MR enterography. No small bowel abnormalities are identified. RAYMUNDO ELIZONDO MD Narrative 04/08/2020 3:57 PM YOUTH COUNSELOR MR ENTEROGRAPHY WITHOUT AND WITH CONTRAST ??04/08/2020 1:40 PM HISTORY: Small bowel abnormality reporte dly noted on outside CT scan. Constipation. TECHNIQUE: MR enterography protocol was performed. Prior to scanning, 1500 ml Breeza oral contrast was adminis tered. 0.25 mg of sublingual Levsin was also administered. Multiseque nce, multiplanar imaging of the abdomen was performed without IV jarocho olinium contrast. A total of 6 mL ??gadolinium contrast was then admini stered intravenously. Additional dynamic postcontrast T1 fat-s at sequences were performed. COMPARISON: None. FINDINGS: ENTEROGRAPHY: No abnormal loops of small bowel are identified. No evidence for bowel wall thickening or mu cosal hyperenhancement. No bowel obstruction. No evidence for absce ss or fistula. No colonic abnormalities are identified. Unremarkab le amount of stool throughout the colon. ADDITIONAL FINDINGS: The visualized port ions of the liver are unremarkable. No evidence for biliary or pancreatic ductal dilatation. The gallbladder, spleen, adrenal glands, pancreas, and kidneys are unremarkable. No hydronephrosis. No enla rged lymph nodes are identified. No adnexal masses are seen. No free fluid in the pelvis. Procedure Note Raymundo Elizondo MD - 04/08/2020Forma tting of this note might be different from the original. MR ENTEROGRAPHY WITHOUT AND WITH CONTRAS T 04/08/2020 1:40 PM HISTORY: Small bowel abnormality reporte dly noted on outside CT scan. Constipation. TECHNIQUE: MR enterography protocol was performed. Prior to scanning, 1500 ml Breeza oral contrast was adminis tered. 0.25 mg of sublingual Levsin was also administered. Multiseque nce, multiplanar imaging of the abdomen was performed without IV jarocho olinium contrast. A total of 6 mL gadolinium contrast was then administ ered intravenously. Additional dynamic postcontrast T1 fat-s at sequences were performed. COMPARISON: None. FINDINGS: ENTEROGRAPHY: No abnormal loops of small bowel are identified. No evidence for bowel wall thickening or mu cosal hyperenhancement. No bowel obstruction. No evidence for absce ss or fistula. No colonic abnormalities are identified. Unremarkab le amount of stool throughout the colon. ADDITIONAL FINDINGS: The visualized port ions of the liver are unremarkable. No evidence for biliary or pancreatic ductal dilatation. The gallbladder, spleen, adrenal glands, pancreas, and kidneys are unremarkable. No hydronephrosis. No enla rged lymph nodes are identified. No adnexal masses are seen. No free fluid in the pelvis. IMPRESSION: Unremarkable MR enterography . No small bowel abnormalities are identified. RAYMUNDO ELIZONDO MD Vivek Sepulveda PA-C IMG MRI ORDERABLES documented in this encounter Visit Diagnoses Diagnosis Constipation, unspecified constipation t ype Abnormal CT scan, small bowel Nonspecific (abnormal) findings on radio logical and other examination of gastrointestinal tract documented in this encounter Administered Medications Inactive Administered Medications - up to 3 most recent administrations Medication Order MAR Action Action Date Dose Rate Site gadobutrol (GADAVIST) injection 7.5 Given 04/08/2020 1:22 PM YOUTH COUNSELOR 6 mLs mL 7.5 mL, Intravenous, ONCE, On Mon04/08/20 at 1230, For 1 dose glucagon 1 MG injection Given 04/08/2020 1:23 PM YOUTH COUNSELOR 1 mg Starting on Mon04/08/20 at 1300, For 1 dose, Eric Venegas: cabinet override If ordered IV, give IV Push over 1 minute. Reconstitute with 1mL sterile water. sodium chloride (PF) 0.9% PF flush 60 mL Given 04/08/2020 1:23 PM YOUTH COUNSELOR 60 mLs 60 mL, Intravenous, ONCE, On Mon04/08/20 at 1230, For 1 dose documented in this encounter Care Teams Hr Leader Relationship Specialty Start Date End Date Cameron Montgomery PCP - General Family Medicine 04/08/20 [facility] [address] [address] documented as of this encounter
--- OUTSIDE RECORDS SUMMARY | 2022-01-06 12:01 | XMS_ITS | Encounter Summary ---
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 documented as of this encounter Plan of Treatment Not on filedocumented as of this encounter Visit Diagnoses Not on filedocumented in this encounter Care Teams Chief Librarian Extension Department Relationship Specialty Start Date End Date Cameron Montgomery PCP - General Family Medicine 04/08/20 [facility] [address] [place] [address] documented as of this encounter
--- NOTE | 2022-01-06 12:15 | CRLHL7_ITS ---
For Patients: As a result of the Century Cures Act, medical imaging exams and procedure reports are released immediately into your electronic medical record. You may view this report before your referring provider. If you have questions, please contact your health care provider. INDICATION: POLYPS ON ENDOCERVICAL, ASSESS ENDO COMPARISON: none TECHNIQUE: 2D lorenzo scale and color Doppler images were acquired of the pelvis using a transabdominal and transvaginal approach. FINDINGS: Sonographic images demonstrate a normal size and smooth outer contour of the uterus. Uterus measures 6.5 cm in length by 2.2 cm in AP diameter by 3.7 cm in transverse dimension. The myometrium has a normal uniform echotexture. The endometrial lining measures 6 mm in composite thickness. Multiple endometrial polyps are present measuring 5 x 3 x 6 millimeters, 10 x 6 x 6 millimeters and 4 x 5 x 5 millimeters. A trace amount of endometrial fluid is present. The right ovary measures 2.3 x 1.0 x 1.6 cm in size and the left ovary measures 1.9 x 1.3 x 1.4 cm. The ovaries demonstrate normal arterial and venous blood flow on color Doppler analysis. There are no suspicious fluid collections within the cul-de-sac. IMPRESSION: Multiple endometrial polyps measuring up to 1 cm. Endometrial lining measures 6 millimeters. Dictated by Lukasz Castellon MD @ 01/06/2022 3:33:16 PM (Electronically Signed)
== END 2022-01-06 11:59 | disposition home or self-care (01) ==
LOC: US 11:59
PROVIDERS: PCP Family Medicine; Visit Provider Obstetrics & Gynecology
DX: N84.1 Polyp of cervix uteri (principal)
CPT/HCPCS: 76830

== ENCOUNTER 2022-02-18 14:10 | Outpatient (CLI) | payer MEDICARE, BC, SELFPAY ==
[2022-02-18 22:00] LABS: Albumin* 4.7 g/dL (3.3-5.0); Chloride* 103 mmol/L (96-114); Potassium* 5.2 mmol/L (3.6-5.1); Sodium* 136 mmol/L (135-149)
[2022-02-18 22:02] LABS: Bilirubin Direct* 0.2 mg/dL (0.0-0.5); Bilirubin Total* 0.3 mg/dL (0.1-1.5); Carbon Dioxide* 27 mmol/L (20-32); Estimated Glomerular Filt Rate 61 ml/min
[2022-02-18 22:03] LABS: Alanine Aminotransferase* 25 U/L (4-35); Alkaline Phosphatase* 59 U/L (40-150); Aspartate Amino Transferase* 29 U/L (12-35); Blood Urea Nitrogen* 18 mg/dL (7-30); Calcium* 9.8 mg/dL (8.4-10.6); Glucose* 119 mg/dL (60-115)
== END 2022-02-18 14:11 | disposition home or self-care (01) ==
PROVIDERS: PCP Family Medicine; Visit Provider Family Medicine
DX: Z01.818 Encounter for other preprocedural examination (principal); Z79.899 Other long term (current) drug therapy; N84.0 Polyp of corpus uteri
CPT/HCPCS: 80048; 80076

== ENCOUNTER 2022-02-24 06:15 | Day surgery (SDC) | payer MEDICARE, BC, SELFPAY ==
[2022-02-24] VITALS (9 sets, daily range): BP systolic 88–126; BP diastolic 46–73; PULSE 16–65; RESP 16; TEMP 36.5; O2SAT 94–98; BMI 23.9
--- OUTSIDE RECORDS SUMMARY | 2022-02-24 06:20 | XMS_ITS | Continuity of Care Document ---
:1955 Author Organization [facility] Address [address] [address] [place] [address] Phone Care Team Providers Name Role Phone [...] magnesium oxide) route every day tablet omega 6-mvr-dik-fish take 1 Capsule by 1 Capsule - [...] Description For Visit Copied on Encounter Offic/outpt [facility] Constipation, No Re ferring E&m Estab [facility] Symptoms unspecified Information Pro vider: [facility], or constipation 1 Referral [address] Concerns typeAbnormal Self. [address], (chief CT scan, [facility] complaint) small bowel [place], [place], [id number], tel:[phone] [facility] No No [facility], [address] [address], [place], [place], [id number], [place] tel:[phone] Offic/outpt [facility] Constipation, No Re ferring E&m New Mod [facility] Symptoms unspecified Information P sravanthider: Destin FOSTER, or constipation 1 Cameron [address] Concerns typeAbnormal [place] [address], (chief CT scan, , [facility]) small bowel [address] [place], [place], [place], [id number], [facility], [address]. tel:[phone] tel:[phone] [facility] No No [facility], [address] [address], [place], [place], [id number], [place] tel:[phone] [facility] No Cori [facility]ON [facility], [address] [address], [address] [place], [place] [address], [place], [place], [place], [id number], [place], [id number], tel:[phone] tel:[phone] Family History Family Member Type Diagnosis Age [...] Other Registry tetanus toxoid, reduced administered Note: [place] IC bi-directional diphtheria toxoid, and acellular interface [...] interface ; So urce: Other Registry Novel [id number], administered Note: M IIC bi-directional preservative-free, injectable in [facility] ; Source: Other Registry Influenza, seasonal, injectable administered Note: MIIC bi-directional interface ; Sour ce: Other Registry tetanus toxoid, reduced administered Note: NV IC bi-directional diphtheria toxoid, and acellular interface ; Source: Other pertussis vaccine, adsorbed Fanny stry tetanus and diphtheria toxoids, administered Note: MIIC bi-directional adsorbed, preservative free, for interface ; Source: Other adult use (2 Lf of tetanus Simone try toxoid and 2 Lf of diphtheria toxoid) Payers Payer name Insurance type Covered constitution party ID Authorization(s ) [employer] [id number] Social History Type Description Quantity Date Captured [...] a 64-year-old female who presents for a [facility] visit. The patient did consent [...] CT scan, small bowel 1 impression Kizzy Carolian is a 64-year-old female w ith constipation [...] , which she will get completed in [place]. She can follow up with us on an as-needed basis. The patient agrees with this plan and will contact us with any questions. Patient Care Teams Name Effective Dates (start - stop) Status M braden No Information
[2022-02-24 07:09] LABS: SARS Antigen* negative (Negative)
[2022-02-24] MEDS: SODIUM CHLORIDE 0.9 % (FLUSH) 10 ML SYRINGE IVF (07:11)
[2022-02-24] MEDS: LACTATED RINGERS 1000 ML 1,000 ML 100 ML IV (07:11)
--- NOTE | 2022-02-24 07:27 | W.PM.GYNPROC ---
Procedure Note Time Seen by Provider: 07:27 Date Seen: 02/24/22
[2022-02-24] MEDS: LIDOCAINE 0.5%-EPI 1:200,000 50 ML VIAL 20 ML INJECTION (08:00)
--- NOTE | 2022-02-24 08:07 | W.ANESCHARGE ---
Anesthesia Charges Start Date/Time Anesthesia Start Date: 02/24/22 Anesthesia Start Time: 07:39 Stop Date/Time Anesthesia Stop Date: 02/24/22 Anesthesia Stop Time: 08:52 Summary Emergency: No
--- NOTE | 2022-02-24 09:04 | W.ANESCHARGE ---
Anesthesia Charges Start Date/Time Anesthesia Start Date: 02/24/22 Anesthesia Start Time: 07:39 Stop Date/Time Anesthesia Stop Date: 02/24/22 Anesthesia Stop Time: 08:52 Summary Emergency: No
[2022-02-24] MEDS: ACETAMINOPHEN 500 MG TABLET 1000 MG PO (09:26)
[2022-02-24] MEDS: IBUPROFEN 600 MG TABLET PO (09:27)
== END 2022-02-24 10:49 | disposition home or self-care (01) ==
PROVIDERS: PCP Family Medicine; Visit Provider Obstetrics & Gynecology
PROC: 0UDB8ZZ Extraction of Endometrium, Via Natural or Artificial Opening Endoscopic (ICD-10-PCS; CPT 58558; principal; 2022-02-24 07:45)
DX: N95.0 Postmenopausal bleeding (principal); N84.0 Polyp of corpus uteri
CPT/HCPCS: 58558; 00952; 82565; 85018; 87426; 88305; A9270; J1885; J2250; J2704; J3010; J7120

== ENCOUNTER 2022-05-26 13:07 | Outpatient (CLI) | payer MEDICARE, BC, SELFPAY ==
--- NOTE | 2022-05-26 13:00 | CRLHL7_ITS ---
For Patients: As a result of the Century Cures Act, medical imaging exams and procedure reports are released immediately into your electronic medical record. You may view this report before your referring provider. If you have questions, please contact your health care provider. Indication: Left arm pain Technique: Some extremity left, left extremity soft tissue Comparison: None Findings: Patient was scanned in the left mid lower arm. No sonographic abnormalities including no masses, adenopathy, free fluid or fluid collections. No skin thickening. The visualized superficial veins are grossly normal. Impression: No sonographic abnormalities in the area of clinical concern. Recommend clinical follow-up. Dictated by Lukasz Camejo MD @ 05/26/2022 7:22:02 PM (Electronically Signed)
== END 2022-05-26 13:08 | disposition home or self-care (01) ==
LOC: US 13:08
PROVIDERS: PCP Family Medicine; Visit Provider Family Medicine
DX: M79.602 Pain in left arm (principal)
CPT/HCPCS: 76882

== ENCOUNTER 2022-08-22 08:16 | Outpatient (CLI) | payer MEDICARE, BC, SELFPAY | END 2022-08-22 08:17 | disposition home or self-care (01) | LOC: NFLDREF 08-23 16:44 | PROVIDERS: PCP Family Medicine; Referring Provider Family Medicine; Visit Provider Family Medicine | DX: Z00.00 Encounter for general adult medical examination without abnormal findings (principal); E78.5 Hyperlipidemia, unspecified; E03.9 Hypothyroidism, unspecified | CPT/HCPCS: 80053; 80061; 84443 ==

== ENCOUNTER 2022-09-27 12:43 | Outpatient (CLI) | payer MEDICARE, BC, SELFPAY ==
[2022-09-27 14:13] VITALS: BP 119/74; PULSE 78; O2SAT 100
--- NOTE | 2022-09-27 14:38 | W.PM.STED ---
Stress Test Note Date Date of test: 09/27/22 Providers Primary care provider: Cameron Montgomery Stress test physician: Marc Carmichael Stress Test Note Stress test ordered: Stress Echo Indication for test: Dyspnea Results discussion: This nice sign any presents for the above test after discussion the risks benefits and side effects she would like to proceed pretest EKG shows normal sinus rhythm with a ventricular rate 88 and a blood pressure 126/73. Rhythm is sinus. Standard Morgan protocol is employed over a time course of minutes, change him metabolic equivalent of 10.3 Mets with a maximum heart rate of 159, which is 123% of the maximum. Patient reached maximum/target heart rate appropriate of blood pressure response to exercise. She did have some shortness of breath on with exertion, patient had minimal EKG changes, on fitting the criteria for ischemia.. The test echo, no obvious wall motion abnormalities by preliminary read by tech, her exercise conditioning was felt to be excellent. Impression: Negative electrographic stress echo, conditioning was felt to be excellent, Follow up suggested: Cardiology will review the echo portion, clinical correlation with this will be needed, patient will be discharged home once clinical criteria are met.
--- NOTE | 2022-09-27 15:13 | ED.NURSE ---
did feel sob and took her some time to recover after being on the treadmill for 9 minutes. 02 sats 100% and was feeling some tingling at times. was taking very deep deliberate breaths- did go home. called back to see what she should do as she continued to feel sob and tingling in extremities. had spoken to dr salmeron and he did not see anything that was worrisome on her stress test. she relaxed at home taking some juice and slowed her breathing down. did tell her to come back and be seen in the ed if needed. she understood that as was going to wait and see and the symptoms where going away-sob. was able to speak in complete sentences.
== END 2022-09-27 12:44 | disposition home or self-care (01) ==
LOC: STRESS 12:44
PROVIDERS: PCP Family Medicine; Visit Provider Family Medicine
DX: R06.09 Other forms of dyspnea (principal); M54.9 Dorsalgia, unspecified
CPT/HCPCS: 93016; 93325; 93351

== ENCOUNTER 2022-11-09 14:28 | Outpatient (CLI) | payer MEDICARE, BC, SELFPAY ==
--- OUTSIDE RECORDS SUMMARY | 2022-11-09 14:33 | XMS_ITS | Continuity of Care Document ---
Author Name Unknown Organization [facility] Address [address] [place] [address] Phone Care Team Providers Care Supervisor Packing Name Role Phone No Information Unavailable Unavailable Allergies, Adverse Reactions, Alerts Substance Reaction Status Criticality mercury (elemental) Active No Infor mation Medications Medication Instructions Dosage Effective Dates (start - stop) Status Comments VALTREX (unknown strength) Not Available - Active TIROSINT (unknown strength) Not Available - Active PREDNISONE INTENSOL (unknown strength) Not Available - Active AMITRIPTYLINE HCL (unknown strength) Not Available - Active NEURONTIN (unknown strength) Not Available - Active REQUIP (unknown strength) Not Available - Active ZOLOFT (unknown strength) Not Available - Active PROGESTERONE (unknown strength) Not Available - Active Procedures Procedure Date Office/outpatient visit,[facility] 2010 Advance Directives Directive Yes / No Effective Date File Name No Information Encounters Encounter Description Practice Location Reason(s) For Visit Diagnoses Date Provider Providers Copied on Encounter [facility] [place], [address] [place] [address], [address], tel:[phone] No Information No Information Office/outpat ient visit,[facility], [facility] [place], [address] [place] [address], [address], tel:[phone] [facility] - [place] neck pain (chief complaint) No Information Mehbod Amir. [facility], [address], [place], [id number], [place]. tel:[phone] Referring Provider: Renetta Christianson [employer] [facility] [address] [facility], [place], [address] . tel:[phone] [facility], [address] [facility] [address], [place], [address], [place] tel:[phone] 0565 [facility] No Information Torey Ocampo. [facility] [place], [address], [facility] [address], [place], [id number], [place]. tel:[phone] Referring Provider: Renetta Christianson, [employer] [address], [place], [address] . tel:[phone] Family History Family Member Type Diagnosis Age At Onset Father Problem (finding) Arthritis Sister Problem (finding) malignant neoplasm of l lloyd Father Problem (finding) Heart disease Problem (finding) Family history of Low b ack problems Mother Problem (finding) Arthritis Problem (finding) Family history of osteo porosis Payers Payer name Insurance type Covered green party ID Authorhudsona ifeanyi(s) [facility] [id number] Social History Type Description Quantity Date Captured Comments Sex Female Smoking Status No Information Chief Complaint And Reason For Visit No Information Reason For Referral Reason For Referral No Information History Of Present Illness Encounter Date Complaint History Of Prese nt Illness No Information Functional Status Date Functional Assessmen t No Information Instructions Date Instruction Additional Infor mation No Information Assessments Type Assessment Date No Information Patient Care Teams Name Effective Dates (start - stop) Status Members No Information
== END 2022-11-09 14:29 | disposition home or self-care (01) ==
PROVIDERS: PCP Family Medicine; Visit Provider Emergency Medicine
DX: Z00.00 Encounter for general adult medical examination without abnormal findings (principal); M10.9 Gout, unspecified; E03.9 Hypothyroidism, unspecified; E61.1 Iron deficiency; E78.5 Hyperlipidemia, unspecified
CPT/HCPCS: 80048; 84550; 85651; 86140; 86200; 86431; 86618

== ENCOUNTER 2022-11-17 13:50 | Outpatient (CLI) | payer MEDICARE, BC, SELFPAY ==
--- OUTSIDE RECORDS SUMMARY | 2022-11-17 13:53 | XMS_ITS | Continuity of Care Document ---
Author Name Unknown Organization Z [facility] Address [address] [place] [address] Phone Care Team Providers Care Soft Work Wrapper Examiner Name Role Phone No Information Unavailable Unavailable [...] Available - Active Procedures Procedure Date Office/outpatient visit,[facility] 2010 Advance Directives Directive Yes / No Effective Date File Name No Information Encounters Encounter Description Practice Location Reason(s) For Visit Diagnoses Date Provider Providers Copied on Encounter [facility] [place], [address] [place] [address], [address], tel:[phone] No Information No Information Office/outpat ient visit,[facility] [place], [address] [place] [address], [address], tel:[phone] [facility] - [place] neck pain (chief complaint) No Information Mehbod Amir. [facility], [address], [place], [id number], [place]. tel:[phone] Referring Provider: Renetta Christianson [employer] [facility] [address] [facility], [place], [address] . tel:[phone] [facility], [address] [facility] [address], [place], [address], [place] tel:[phone] 2558 [facility] No Information Torey Ocampo. [facility] [place], [address], [facility] [address], [place], [id number], [place]. tel:[phone] Referring Provider: Renetta Christianson, [employer] [address] [facility], [place], [address] . tel:[phone] Family History Family Member Type Diagnosis Age At Onset Father Problem (finding) Arthritis Sister Problem (finding) malignant neoplasm of l lloyd Father Problem (finding) Heart disease Problem (finding) Family history of Low b ack problems Mother Problem (finding) Arthritis Problem (finding) Family history of osteo porosis Payers Payer name Insurance type Covered republican ID Authorhudsona ifeanyi(s) [facility] [id number] Social History Type Description Quantity Date Captured [...]
--- OUTSIDE RECORDS SUMMARY | 2022-11-17 13:53 | XMS_ITS | Continuity of Care Document ---
Author Name Unknown Organization [facility] Address [address] [place] [address] Phone Care Team Providers Care Oil Tank Car Cleaner Name Role Phone Kp Zabala MD Unavailable Unavailable Results Test Name Date and Time Measure Units Reference Range Abnormal Flag Status Comments Panel Description: ESR Final ESR 2 16:26:00 18 mm/hr 0-25 Final Panel Description: CRP Final CRP 2 16:51:00 0.09 MG/DL 0.00-0.60 Final Panel Description: Rheumatoid Arthritis Profile Final RA Latex Turbid. 2 00:06:00 10.1 IU/mL 0.0-13.9 Final CCP Antibodies IgG/IgA 2 00:06:00 5 units 0-19 Final Negative <20 Weak positive 20 - 39 Moderate positive 40 - 59 Strong positive >59 Advance Directives Directive Yes / No Effective Date File Name No Information Encounters Encounter Description Practice Location Reason(s) For Visit Diagnoses Date Provider Providers Copied on Encounter [facility], [address], [place], [address], [place] tel:[phone] No Information 3 Vj Goodrich. [facility] [address], [place], [address], [place]. tel:[phone] Family History Family Member Type Diagnosis Age At Onset No Information Payers Payer name Insurance type Covered green party ID Authoriza tion(s) No Information Social History Type Description Quantity Date Captured [...]
--- NOTE | 2022-11-17 14:00 | CRLHL7_ITS ---
For Patients: As a result of the Century Cures Act, medical imaging exams and procedure reports are released immediately into your electronic medical record. You may view this report before your referring provider. If you have questions, please contact your health care provider. DXA BONE MINERAL DENSITY STUDY Reason for exam: Asymptomatic menopausal state. Current height (in): 62. Weight (lb): 129. Menopause age: 63. Ethnicity: White. 1. Have you had a previous hip or vertebral fracture? No. 2. Have you had any fractures during your adult life which did not result from significant trauma (e.g., auto accident)?No. 3. Did either of your parents have a hip fracture? No. 4. Do you smoke? No. 5. Have you ever taken Glucocorticoids? No. 6. Do you have rheumatoid arthritis? No. 7. Do you have secondary osteoporosis? No. 8. Do you drink 3 or more alcoholic drinks per day? No. 9. Are you being treated for osteoporosis? No. 10. Have you ever taken any of the following medications: Actonel, Evista, Fosamax, Miacalcin, Reclast, Boniva, Forteo, HRT (i.e. estrogen/hormone therapy), Protelos, Prolia, Vitamin D, Calcium, other ??? please specify. ANSWER: Yes, Vitamin D and calcium. 11. Do you have any of the following medical conditions: Anorexia or bulimia, asthma or emphysema, end stage renal disease, hyperparathyroidism, any seizure disorders, cancer, inflammatory bowel diseases, hysterectomy, other ??? please specify. ANSWER: Yes, Cancer. 12. What was your maximum height (inches)? 63. 13. Do you perform weight bearing exercise regularly? Yes. 14. Do you regularly consume dairy products? No. 15. Do you drink caffeinated beverages? Yes. . If female: 16. At what age did your period start? 10. 17. Are you premenopausal? No. 18. How many full term pregnancies have you had? 3. 19. Have you ever missed your period for more than 6 months in a row (not including or menopause)? No. TECHNIQUE: Bone mineral density study was performed using the [employer]. FINDINGS: The results of the study expressed as bone mineral density (BMD) are as follows: Lumbar spine L1 to L4: BMD: 0.764 g/cm2. T-score: -2.6. Z-score: -0.5. Neck Left: BMD: 0.630 g/cm2. T-score: -2.0 . Z-score: -0.2. Right: BMD: 0.633 g/cm2. T-score: -1.9 . Z-score: -0.2. Total Left: BMD: 0.788 g/cm2. T-score: -1.3 . Z-score: 0.2. Right: BMD: 0.826 g/cm2. T-score: -0.9 . Z-score:0.5. IMPRESSION: Osteoporosis. *Comparison exams done prior to 07/2019 were performed on different unit, Deeplink. COMPARISON: Compared with scan of 08/01/2019, the bone mineral density has decreased by 7.7 percent at the spine and increased by 0.3 percent at the hip. Lukasz Castellon M.D. Diagnostic Radiologist [email or web address] KENNY/[email or web address] JR/Dictated by: Lukasz Castellon MD @ 11/18/2022 8:46:00 AM (Electronically Signed)
--- NOTE | 2022-11-17 14:40 | CRLHL7_ITS ---
For Patients: As a result of the Cures Act, medical imaging exams and procedure reports are released immediately into your electronic medical record. You may view this report before your referring provider. If you have questions, please contact your health care provider. BILATERAL SCREENING MAMMOGRAM WITH COMPUTER-AIDED DETECTION AND TOMOSYNTHESIS TECHNIQUE: CC and MLO views were obtained. These mammographic images have been obtained using full-field digital technique. These mammographic images were interpreted with the benefit of computer-aided detection. Breast Tomosynthesis was used in this interpretation. COMPARISON FILM: 05/22/20, 05/09/19, 06/08/18. FINDINGS: There are scattered areas of fibroglandular density IMPRESSION: There is no radiographic evidence for malignancy. ASSESSMENT: BI-RADS Category 1: Negative RECOMMENDATION: Routine screening mammogram in 1 year. A lay language report of this examination will be provided to the patient. Lukasz Castellon M.D. Diagnostic Radiologist [email or web address] KENNY/[email or web address] Transcribed: 12:21 p.mJoycelyn chin/Dictated by: Lukasz Castellon MD @ 11/18/2022 9:54:00 AM (Electronically Signed)
== END 2022-11-17 13:51 | disposition home or self-care (01) ==
LOC: RAD 13:50
PROVIDERS: PCP Family Medicine; Visit Provider Family Medicine
DX: Z12.31 Encounter for screening mammogram for malignant neoplasm of breast (principal); Z78.0 Asymptomatic menopausal state; M81.0 Age-related osteoporosis without current pathological fracture
CPT/HCPCS: 77063; 77067; 77080

== ENCOUNTER 2022-12-15 13:45 | Outpatient (RCR) | payer MEDICARE, BC, SELFPAY ==
--- NOTE | 2022-10-17 14:55 | PT.OPEX ---
Please review and sign the attached physical therapy evaluation completed on 10/17/22. Thank you. [facility] [place] [facility] PT [facility] Outpatient Eval Start: 10/14/22 15:40 Freq: Status: Active Protocol: Document 10/17/22 07:41 TLQ (Rec: 10/17/22 14:39 TLQ [id number]) E-signed By Leti Martinez DPT Physical Therapy Outpatient Evaluation Insurance Information Recert Due Date 12/16/22 Insurance Name Medicare B,Blue Cross/Blue Shield Medical Diagnosis Dorsalgia, unspecified M54.9 Treating Diagnosis Dorsalgia M54.9 Radiculopathy M54.1 Muscle weakness M62.81 Referring MD Cameron Montgomery MD Subjective Subjective Is having a major migraine today, lost of track of time. Tried switching between placing ice or heat on her head but neither seem to help her migraines. Had injections to help her migraines but still gets some that break through. Here to address symptoms of sciatica on the left side that began in August and last for 3 weeks. Pain extends down the back of her leg to her knee. Has had sciatica in the past but usually goes away within a week. Started doing exercises she found on YouTube about 3-4 weeks ago which have helped relieve some of her symptoms. Wants to learn exercises to prevent symptoms from returning or worsening. States she has to be careful when lifting a pot of vergara, tries to lift with her legs and prevent lots of twisting. PMHx: fibromyalgia Pain Comments 0/10 sciatica 8/10 migraines Current Work Status Retired Precautions Therapy Limitations/Systems Review Not Limited Objective Other/Pertinent Objective Trunk AROM: flexion fingertips 2 from floor extension 75% rotation 75% bl, pain on L lateral flexion to joint line bl Trunk/core strength: 4 flexion , 5 extension/lateral flexion Hip strength: flexion L 4, R 4+ extension L 4-, R 4 abduction 4+ bl adduction 5 bl internal rotation L 4+, R 5 external rotation L 4, R 4+ Knee: extension 5 bl flexion 4+ bl Ankle plantarflexion 25 SLHR bl, more difficult on L used momentum TTP: L piriformis Normal joint mobility of lumbosacral spine, assessed in sidelying Lumbar Special tests: Slump test (-) SLR (-) Quadrant test (-) Manual traction (+) positive response Assessment Assessment/Impression Patient is a 67 year old female who presents to physical therapy to address symptoms of left-sided sciatica. Patient has history of sciatica flares, typically lasting a week at a time, most recent flare lasted three weeks. Patient found stretches on YouTube which have since provided some symptom relief, goal for physical therapy is to learn additional stretches to manage sciatica symptoms. Patient also presented to clinic today reporting a migraine, she does not wish to address this in physical therapy at this time, is being managed elsewhere at [facility]. Strength testing revealed core and left lower extremity weakness, especially in posterior chain. Negative slump test today, although patient has been working on stretches over past few weeks to decrease neural irritation. Found relief from low back pain with manual lower extremity unilateral distraction. She was tender with palpation of the left piriformis, was instructed through use of tennis ball at wall to perform STM at home, patient reported a positive response with this. She was educated on sciatica pathology and an initial HEP for gentle stretching/mobilization and glute strengthening. She tolerated all of today's well while she was in clinic. Based on examination findings the patient is appropriate for skilled physical therapy interventions to increase strength and improve flexibility to meet the goals as outlined below. Primary Functional Limitations left-sided sciatica, low back pain, hamstring tightness, core weakness, glute weakness Plan of Care Rehabilitation Potential Good Physical Therapy Goals In 3-4 visits: - Patient will be sciatica symptom-free for 2 consecutive weeks. - Patient will adhere to HEP to progress strength and flexibility interventions. In 6-8 visits: - Patient will be sciatic symptom-free for 1 month. - Core flexion strength will improve to 4+ for optimal postural support. - Left hip extension strength will improve to 4+ for increased glute activation. Treatment Plan/Direct Interventions Electrical Stimulation,Gait Training,Joint Mobilization, Manual Therapy,Neuromuscular Re-ed,Self-Care/Home Management,Therapeutic Activities,Therapeutic Exercises Frequency/Duration 1x/week for up to 6-8 visits Patient Will Be Discharged From Therapy Completion of LTG(s),Skills Plateau,Independent w/HEP, Independently Progressing Evaluation Billing Untimed Code Treatment Minutes 35 Complexity Low Certification Information Initial Certification Date 10/17/22 Ending Certification Date 12/16/22 Provider Signature Shows Agreement With POC & Medical Necessity Physician Signature & Date Requested Please Sign/Date Here Physician Comment/Change : Physician NPI Number #
== END 2023-01-16 10:33 | disposition home or self-care (01) ==
PROVIDERS: PCP Family Medicine; Visit Provider Family Medicine
DX: M54.9 Dorsalgia, unspecified (principal); M54.10 Radiculopathy, site unspecified; M62.81 Muscle weakness (generalized); Z51.89 Encounter for other specified aftercare
CPT/HCPCS: 71260; 97110; 97140; 97161; Q9967

== ENCOUNTER 2023-09-27 10:17 | Outpatient (CLI) | payer MEDICARE, BC, SELFPAY ==
--- OUTSIDE RECORDS SUMMARY | 2023-09-27 10:21 | XMS_ITS | Encounter Summary ---
Author Organization [employer] Address [address] [address] Care Team Providers Care Engraver Seals Name Role Phone Karen Montes De Oca MD Primary Care Provider [phone] Reason for Referral * Consult/Transfer Care (Routine) - New Request Specialty Diagnoses / Procedures Referred By Contac t Referred To Contact Diagnoses Pain in both hands John Verde MD [address] [place] [address] [place] [address] Referral ID Status Reason Start Date Expiration Date V isits Requested Visits Authorized [id number] New Request 07/17/2023 10/15/2024 1 1 Scheduling Instructions Your clinician has recommended an appointment with [facility]. You may call [phone] for help scheduling your appointment. We suggest you call your health insurance company about your coverage and benefits for this appointment. Question Answer Appointment Urgency? Non-Urgent Reason for Visit * Reason Comments Follow-up Bilateral hand arthr itis Encounter Details Date Type Department Care Team (Late st Contact Info) Description 07/17/2023 10:45 AM CDT Office Visit [facility] [address] [place], [place] [address] John Verde MD [address] [facility] [address] [id number] Pain in both hands (Primary Dx) Social History Tobacco Use Types Packs/Day Years Used Date Smoking Tobacco: Never Sex and Gender Information Value Date Recorded Sex Assigned at Not on file Gender Identity Not on file Sexual Orientation Not on file documented as of this encounter Patient Instructions * Patient Instructions* Sari Novoa OA - 07/17/2023 10:45 AM CDT Thank you for Choosing [facility] for your health care visit today. Dr. John Verde MD Hand & Upper Extremity Surgeon Medication Requests: Prescriptions are not filled on weekends or on weekdays after 3:00 PM. For all medication refills: Request a refill using [employer] or contact your pharmacy. What is Know Your Cost? Know Your Cost is a service for patients and patient/members to call and receive personalized cost information and estimates across our care group. The phone number is (COST) Monday - Monday 8 AM to 5 PM Advanced Imaging Scheduling: To schedule an MRI, Ultrasound, or Image guided injection at [facility] please call [phone]. To schedule an MRI or CT at a [facility] please call [phone]. 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 Left carpal tunnel release (03/09/2011) 2. Right carpal tunnel release (04/13/2011) Impression: Bilateral hand osteoarthritis Plan: The patient has fairly diffuse complaints of osteoarthritic pain in both hands. Today it seems thatthe right index and long fingers are most symptomatic. We have therefore decided to proceed with corticosteroid injections into the right index and long finger metacarpophalangeal joints. I have alsorecommended that she consider an evaluation by group care worker for medical management of her osteoarthritic hands. Interim History: The patient returns to clinic. She complains of diffuse bilateral osteoarthritic pain. Physical Exam: She has the stigmata of osteoarthritis throughout both hands. There is diffuse tenderness. There isno ulnar drift of the digits. She is able to make a closed composite fist and has full extensi no new imaging on of all her digits. Diagnostic Studies: No new imaging Diagnosis and Associated Orders ICD-10-CM 1. Pain in both hands M79.641 Inject/Asp Small Joint Or Bursa,Eg Finger/T M79.642 Methylprednisolone 40 Mg Inj (J1010) Rheumatology Consult-Adults Procedure: Right index finger metacarpophalangeal joint corticosteroid injection: The skin overlying the right index finger metacarpophalangeal joint was aseptically prepped with alcohol. A mixture of 20 mg of Depo-Medrol and a 0.5 mL of 1% lidocaine was injected into the right index finger metacarpophalangeal joint with good flow and localization of the injectate. Right long finger metacarpophalangeal joint corticosteroid injection: The skin overlying the right long finger metacarpophalangeal joint was aseptically prepped with alcohol. A mixture of 20 mg of Depo-Medrol and a 0.5 mL of 1% lidocaine was injected into the right long finger metacarpophalangeal joint with good flow and localization of the injectate. John Verde MD 1:12 PM 07/17/2023 documented in this encounter Plan of Treatment Scheduled Referrals Name Type Priority Associated Diagnoses Orde r Schedule Rheumatology Consult-Adults Referral Routine Pain in both hands Ordered: 07/17/2023 documented as of this encounter Visit Diagnoses Diagnosis Pain in both hands- Primary documented in this encounter Care Teams Engraver Seals Relationship Specialty Start Date End Date Karen Montes De Oca MD [address] [place] [address] PCP - General Emergency Medicine 12/14/22 documented as of this encounter
--- OUTSIDE RECORDS SUMMARY | 2023-09-27 10:21 | XMS_ITS | Clinical Summary ---
Author Organization [facility] Address [address], [place] [address] Care Team Providers Care Meat Process Worker Name Role Phone Karen Montes De Oca MD Primary Care Provider [phone]- [phone] Source Comments You are receiving this document as you are listed as the primary care provider,follow-up provider, or the patient has been referred to you for consultation.This is in compliance with the Medicare and[facility] E[facility] Incentive Program,which states Providers who transition their patient to another setting of careor provider of care or refers their patient to another provider of care shouldprovide summary care record for each transition of care or referral. [facility] Allergies No known active allergies Medications No known medications Encounters Date Type Department Care Team Description 07/17/2023 10:45 AM CDT Office Visit [facility] [address] [place] [address] John Verde MD Pain in both hands (Primary Dx) from Last 3 Months Social History Tobacco Use Types Packs/Day Years Used Date Smoking Tobacco: Never Sex and Gender Information Value Date Recorded Sex Assigned at Not on file Gender Identity Not on file Sexual Orientation Not on file Plan of Treatment Health Maintenance Due Date Last Done Comments Colon Cancer Screening Plan Due 1955 Hep C Screening (Preventive Services) 1955 Medicare Annual Wellness Visit 1955 Mammogram 1955 Cholesterol 1998 Dexa 2018 COVID-19 Vaccine ( season) 2023 01/03/2023, 05/08/2021, 12/03/2020, Additional history exists Influenza (#1) 2023 11/01/2022, 11/06, 11/05/2020, Additional history exists DTaP/Tdap/Td (3 - Tdap) 03/29/2028 03/29/19, 10/27/2008, 07/20/1983 Pneumococcal 65+ Yrs Completed 08/26/2021, 08/21/19 Zoster/Shingles Completed 03/12/2023, 12/08, 08/04/2014 HepA Aged Out No longer eligi ble based on patient's age to complete this topic HepB Aged Out No longer eligi ble based on patient's age to complete this topic Hib Aged Out No longer eligi ble based on patient's age to complete this topic IPV (Polio) Aged Out No longer eligi ble based on patient's age to complete this topic MCV4 Aged Out No longer eligi ble based on patient's age to complete this topic Care Teams Meat Process Worker Relationship Specialty Start Date End Date Karen Montes De Oca MD [address] [place] [address] PCP - General Emergency Medicine 12/14/22
--- OUTSIDE RECORDS SUMMARY | 2023-09-27 10:21 | XMS_ITS | Encounter Summary ---
Author Organization [facility] Address [address], [place] [address] Care Team Providers Care Bessemer Converter Blower Name Role Phone Karen Montes De Oca MD Primary Care Provider [phone]- [phone] Encounter Details Date Type Department Care Team (Late st Contact Info) Description 02/14/2011 Orders Only [facility] [address] [place] [address] John Verde MD [address] [place] [address] Carpal tunnel syndrome Social History Tobacco Use Types Packs/Day Years Used Date Smoking Tobacco: Never Assessed Sex and Gender Information Value Date Recorded Sex Assigned at Not on file Gender Identity Not on file Sexual Orientation Not on file documented as of this encounter Plan of Treatment Not on file documented as of this encounter Visit Diagnoses Diagnosis Carpal tunnel syndrome documented in this encounter Care Teams Bessemer Converter Blower Relationship Specialty Start Date End Date Karen Montes De Oca MD [address] [place] [address] PCP - General Emergency Medicine 12/14/22 documented as of this encounter
--- OUTSIDE RECORDS SUMMARY | 2023-09-27 10:21 | XMS_ITS | Encounter Summary ---
Author Organization [facility] Address [address], [place] [address] Care Team Providers Care Grit Blaster Name Role Phone Karen Montes De Oca MD Primary Care Provider [phone]- [phone] Encounter Details Date Type Department Care Team (Late st Contact Info) Description 03/14/2011 Orders Only [facility] [address] [place] [address] John Verde MD [address] [place] [address] Social History Tobacco Use Types Packs/Day Years Used Date Smoking Tobacco: Never Assessed Sex and Gender Information Value Date Recorded Sex Assigned at Not on file Gender Identity Not on file Sexual Orientation Not on file documented as of this encounter Plan of Treatment Not on file documented as of this encounter Visit Diagnoses Not on filedocumented in this encounter Care Teams Grit Blaster Relationship Specialty Start Date End Date Karen Montes De Oca MD [address], [place] [address] PCP - General Emergency Medicine 12/14/22 documented as of this encounter
--- OUTSIDE RECORDS SUMMARY | 2023-09-27 10:22 | XMS_ITS | Encounter Summary ---
Author Organization [facility] Address [address] [place] [address] Care Team Providers Care Senior Core Java Developer Name Role Phone Unavailable Primary Care Provider Unavailabl e Reason for Referral * Outpatient (Routine) - Authorized Specialty Diagnoses / Procedures Referred By Contac t Referred To Contact Hematology Oncology Yvrose Gomes P.A.-C., M.S. [address] [place] [phone] [facility] Referral ID Status Reason Start Date Expiration Date V isits Requested Visits Authorized [id number] Authorized 06/28/2023 12/27/2024 1 1 Reason for Visit * Outpatient (Routine) - Closed Specialty Diagnoses / Procedures Referred By Contac t Referred To Contact Hematology Oncology Madisyn Farooq M.D. [address] [place] [phone] [facility] Referral ID Status Reason Start Date Expiration Date Visits Re quested Visits Authorized [id number] Closed 12/30/2022 12/29/2025 1 1 Encounter Details Date Type Department Care Team ([facility] st Contact Info) Description 06/28/2023 2:00 PM CDT Office Visit Division of Hematology in [place], [place] [address] [place] [phone] Yvrose Gomes P.A.-C., M.S. [address] [place] [phone] 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) Social History Tobacco Use Types Packs/Day Years Used Date Smoking Tobacco: Never Passive Smoke Exposure: Never Smokeless Tobacco: Never Alcohol Use Standard Drinks/Week Comments Not Currently 0 (1 standard drink = 0.6 oz pur e alcohol) Overall Financial Resource Strain (CARDIA) Answe r Date Recorded How hard is it for you to pa y for the very basics like food, housing, medical care, and heating? Not very hard 12/04/2022 Exercise Vital Sign Answer Date Recorde d On average, how many days pe r week do you engage in moderate to strenuous exercise (like a brisk walk)? 4 days 12/04/2022 On average, how many minutes do you engage in exercise at this level? 20 min 12/04/2022 Hunger Vital Sign Answer Date Recorded Within the past 12 months, y ou worried that your food would run out before you got the money to buy more. Never true 12/05/19 Within the past 12 months, t he food you bought just didn't last and you didn't have money to get more. Never true 12/04/2022 PRAPARE - Transportation Answer Date Re corded In the past 12 months, has l ack of transportation kept you from medical appointments or from getting medications? No 11/07 In the past 12 months, has l ack of transportation kept you from meetings, work, or from getting things needed for daily living? No 12/04/2022 Nutrition Answer Date Recorded On average, how many serving s of fruits and vegetables do you eat per day (serving size is equal to 1 cup or approximately the size of a tennis ball)? 3-5 12/04/2022 Dental Answer Date Recorded Dental: Regular Dentist Yes 12/05/19 Employment Answer Date Recorded Employment status Retired 12/04/2022 Housing Stability Answer Date Recorded What is your living situation today? [facility] live 12/04/2022 Sex and Gender Information Value Date Recorded Sex Assigned at Female 12/04/2022 10:03 AM CDT Gender Identity Female 12/04/2022 10:03 AM CDT Sexual Orientation Straight 12/04/2022 10 :03 AM CDT documented as of this encounter Last Filed Vital Signs Vital Sign Reading Time Taken Comments Blood Pressure 111/64 06/28/2023 1:56 PM CDT Pulse 76 06/28/2023 1:56 PM CDT Temperature 36 ??C (96.8 ??F) 06/28/2023 1:56 PM CDT Respiratory Rate - - Oxygen Saturation - - Inhaled Oxygen Concentration - - Weight 57.3 kg (126 lb 5.2 oz) 06/28/2023 1:56 P M CDT Height 159.5 cm (5' 2.8) 06/28/2023 1:56 PM CDT Body Mass Index 22.52 06/28/2023 1:56 PM CDT documented in this encounter Patient Instructions * Patient Instructions* Miriam Mckeon P.A.-C. - 06/28/2023 2:00 PM CDT Supportive Care Guidelines for CLL/SLL Patients: Patients with CLL/SLL are at increased risk for a number of complications beyond the risk of leukemia progression, including an increased risk of second malignancies and infection. Accordingly, routine supportive care guidelines for patients with CLL/SLL include: Efforts to reduce the risk of skin cancer: stringent use of skin protection against sun exposure annual full body skin exam by a certified tumor registrar or primary care provider monitoring for Vitamin D deficiency (given sun avoidance) Efforts to reduce risk of infection: annual high-dose inactivated influenza vaccination patients should not receive Zostavax or other live-attenuated vaccines (e.g. intranasal influenza, yellow fever vaccine) pneumococcal vaccination: type and frequency of vaccination depend on prior history of vaccination and age of patient. All patients who have not previously received any pneumococcal vaccine should receive PCV13 (Prevnar, 13-valent pneumococcal conjugate vaccine) followed by PPSV23 (23-valent pneumococcal polysaccharide vaccine) at least 8 weeks later. For patients who have previously received 1 or more doses of PPSV23, 1 dose of PCV13 should be given at least one year after the last PPSV23 dose A second dose of PPSV23 is recommended 5 years after the first PPSV23 dose Shingrix: two doses at least 2-6 months apart Age-appropriate health maintenance and cancer screening including mammograms and colorectal cancer screens documented in this encounter Progress Notes * Miriam Mckeon P.A.-C. - 06/28/2023 2:00 PM CDT STAFF FLOOR SPACE ALLOCATOR Dr. Farooq CHIEF COMPLAINT/PURPOSE OF VISIT: CLL SUBJECTIVE HISTORY OF PRESENT ILLNESS: Ms. Carolina is a 67 y.o. 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 Cisneros stage at diagnosis: 1 Current symptoms: fatigue, dyspna on exertion ECOG PS: 0 12/08/22 LDH: 168 U/L B2M: 2.00 mcg/mL 11/28/[address] with IV contrast 11/28/22 Read at [facility] 12/12/22 IMPRESSION: 1. Mildly enlarged and prominent subcentimeter bilateral axillary lymph nodes, with examples provided in the findings section of the report, which may relate to history of lymphoproliferative disorder. 2. No mediastinal or hilar lymphadenopathy by CT size criteria. 3. Scattered small indeterminate pulmonary nodules measuring less than 4 mm mean diameter. Management considerations are provided at the end of the report. 4. Nonspecific small focus of sclerosis and cortical thickening posterior left 8th rib without associated destructive changes, possibly related to a bone island and exostosis. Comparison with any prior outside imaging studies and/or attention at follow-up is recommended to ensure stability. 12/08/2022 Biopsy/Pathology Flow cytometry: monotypic lambda B cell population, expressing CD19 (dim), CD20 (dim), CD22 (dim), CD5, CD23, CD200. Absolute Clonal B-cell Count: 3.9 x 10(9)/L FISH: normal CD38: negative CD49: negative IgHV mutation status: mutated Bone marrow results: not done CLL IPS score 2 INTERVAL HISTORY Ms. Carolina returns today with her , Sp, for follow-up. She reports that she has been feeling well other than continuing to have migraines. She also has been diagnosed with osteoarthritis in her hands, which has improved with joint injections and she continues to follow up with orthopedics for this. She notes a 5 pound weight loss since last summer. States she has had some night sweats occurring when she uses heavier blankets though these have not been drenching. She denies changes inlymph nodes, infections, fevers, significant fatigue. OBJECTIVE VITAL SIGNS: BP 111/64 Pulse 76 Temp 36 ??C Ht 159.5 cm Wt 57.3 kg BMI 22.52 kg/m?? MEDICATIONS: Current Outpatient Medications: azelastine (ASTEPRO) 205.5 mcg/spray (0.15 %) nasal spray, , Disp: , Rfl: calcium carbonate 1,500 mg (600 mg calcium) tablet, Take 2 tablets by mouth daily., Disp: , Rfl: cholecalciferol (VITAMIN D3) 25 mcg (1,000 Unit) capsule, Take 50 mcg by mouth daily., Disp: , Rfl: ciclopirox (LOPROX) 0.77 % cream, Apply 1 Application topically every other day. Gently massage into affected areas and surrounding skin, Disp: , Rfl: clobetasoL (TEMOVATE) 0.05 % cream, APPLY CREAM TOPICALLY TO AFFECTED AREA EVERY DAY AT BEDTIME 4 TIMES A WEEK THEN ALTERNATE NIGHTS FOR 4 WEEKS THEN 2 NIGHTS WEEKLY, Disp: , Rfl: diclofenac sodium (Voltaren Arthritis Pain) 1 % gel, as needed., Disp: , Rfl: eletriptan (RELPAX) 40 mg tablet, TAKE 1 TABLET IF HEADACHE RETURNS, THE DOSE MAY BE REPEATED AFTER2 HRS, BUT NO MORE THAN 2/WEEK, Disp: , Rfl: estradioL (ESTRACE) 0.1 mg/g (0.01%) vaginal cream, APPLY A PEA SIZED AMOUNT TO URETHRA NIGHTLY FOR2 WEEKS, THEN TWICE PER WEEK AFTER THAT FOR 6 WEEKS., Disp: , Rfl: gabapentin (NEURONTIN) 300 mg capsule, Medrol Dose Pack scheduling ONLY., Disp: , Rfl: hydrocortisone-pramoxine (ANALPRAM-HC) 2.5-1 % rectal cream, Insert 1 Application into the rectum 2(two) times a week., Disp: , Rfl: ketoconazole (NIZORAL) 2 % cream, Apply 1 Application topically 2 (two) times a week. Apply to FEET(ATHLETES FEET), Disp: , Rfl: L. acidophilus/Bifid. animalis 31 billion cell capsule, daily., Disp: , Rfl: levothyroxine (SYNTHROID, LEVOTHROID) 112 mcg tablet, Take 1 tablet by mouth daily., Disp: , Rfl: magnesium oxide (MAG-OX) 400 mg (241.3 mg magnesium) tablet, every evening., Disp: , Rfl: multivitamin tablet, Take 1 tablet by mouth daily., Disp: , Rfl: oxymetazoline (AFRIN) 0.05 % nasal spray, , Disp: , Rfl: propranoloL (INDERAL) 40 mg tablet, Take 40 mg by mouth daily., Disp: , Rfl: rosuvastatin (CRESTOR) 5 mg tablet, Take 1 tablet by mouth at bedtime., Disp: , Rfl: traZODone (DESYREL) 100 mg tablet, Take 150 mg by mouth at bedtime., Disp: , Rfl: valACYclovir (VALTREX) 1000 mg tablet, , Disp: , Rfl: vit C/E/Zn/coppr/lutein/zeaxan (OCUVITE LUTEIN AND ZEAXANTHIN ORAL), Take 1 capsule by mouth daily., Disp: , Rfl: IMMUNIZATIONS: Immunization History Administered Date(s) Administered DTaP (Infanrix, Tripedia) 10/27/2008 H1N1 Inj Preservative Free 01/27/2009 HZV (ZOSTAVAX) 08/04/2014 Influenza (IM) Preservative Free 11/04/2010 Influenza TIV (IM) 01/01/2007, 10/27/2008, 11/04/2010, 11/09/2011, 01/10/2013, 10/26/2014 Influenza high dose QV(65 years or older) (PF) 11/05/2020, 11/24/2021 Influenza, Injectable, Mdck, Preservative Free, Quadrivalent 12/06/2017 Influenza, Quadrivalent, Adjuvanted, Preservative Free 11/01/2022 Influenza, Seasonal, Injectable 10/27/2008, 11/09/2011, 01/10/2013, 10/26/2014 Influenza, Unspecified 10/27/2008, 10/12/2017, 11/23/2018, 11/05/2020 PCV13 08/21/2019 PPSV23 08/26/2021 SARS-COV-2 (COVID-19) - MODERNA (12 YEARS AND OLDER) [id number] 01/03/2023 SARS-COV-2 (COVID-19) - MODERNA(Discontinued) 04/07/2020, 05/05/2020, 12/03/2020, 05/08/2021 Td (Adult), adsorbed 07/20/1983 Td, (Adult) Unspecified 02/06/1998 Tdap 10/27/2008, 03/29/2018 influenza high dose (65 years or older) (PF) 11/23/2018 influenza vaccine quad (FLUZONE/FLUARIX) (6 months and older)(PF) 10/27/2008, 01/27/2009, 11/04/2010, 11/09/2011, 01/10/2013, 10/26/2014, 11/27/2015, 11/11/2016, 12/06/2017, 11/23/2018, 11/01/2022 PHYSICAL EXAM: General: pleasant, nontoxic appearing female, in no acute distress. Ambulates to and from exam table without difficulty. ECOG 0. Neuro: alert and oriented to person, place, and time; no focal deficits noted Eyes: anicteric, with extraocular movements intact Heart: regular rate and rhythm Lungs: clear to auscultation bilaterally, breathing comfortably on room air Abdomen: soft, nontender, without palpable hepatosplenomegaly Lymph: Palpable 1.0 cm R posterior cervical lymph node. No palpable preauricular, postauricular, anterior cervical, supraclavicular, axillary, or inguinal lymphadenopathy Extremities: no lower extremity edema Skin: no rashes, purpura visualized MEDICAL HISTORY Hypothyroidism. Hyperlipidemia. Allergic rhinitis. History of fibromyalgia. Status post appendectomy. Status post tonsillectomy. Restless leg syndrome. Migraine - weekly, 1-4 day duration C5-C7 fusion surgery. Osteoarthritis. SOCIAL HISTORY Denies smoking. No recent use of alcohol. 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 She is to Sp and they have 3 children. FAMILY HISTORY Father, leukemia, type unknown. Mother had low counts and was treated with Hydrea, diagnosis is unknown. Sister, lung cancer. DIAGNOSTICS: Most recent laboratory values include: Lab Results Component Value Date WBC 13.3 (H) 06/28/2023 HGB 13.2 06/28/2023 HCT 39.6 06/28/2023 MCV 91.0 06/28/2023 PLT 380 (H) 06/28/2023 , Lab Results Component Value Date CREATININE 1.00 06/28/2023 EGFR 61 06/28/2023 CALCIUM 10.4 (H) 12/08/2022 LDH 168 12/08/2022 Lab Results Component Value Date AST 17 06/28/2023 ALKPHOS 82 06/28/2023 BILITOT 0.2 06/28/2023 ASSESSMENT / PLAN Mrs. Carolina is a 67yo female with hypothyroidism, hyperlipidemia, fibromyalgia, and CLL/SLL with IGHV mutation and palpable lymphadenopathy to the posterior cervical region and axillary stations bilaterally who presents to the clinic for follow up. She is accompanied by her , Sp. She hasbeen on observation for CLL/SLL since November, with no treatment. Her labs remain stable and she has no B symptoms or concerning findings on exam. No treatment needed at this time. #1 Chronic Lymphocytic Leukemia Of B Cell Type Not Having Achieved Remission (HCC) Cisneros stage 1, CLL-IPI 2 -Continue observation -Return to clinic in 6 months Vaccinations: She is up to date on RSV, shingles, and pneumonia vaccines. She is up to date on covid vaccinations. We discussed that it is recommended she receive the flu vaccine in the fall. Preventative maintenance: She receives annual mammograms. She has had colorectal cancer screening in the last 5 years and it was recommended she follow up every 10 years. Her last full skin exam with dermatology was about a year ago. We discussed that there is mixed data regarding the benefit of green tea supplements (EGCG capsules) in CLL, which she could try. We discussed that patients with CLL should stay up to date on all routine health maintenance including colorectal cancer screenings, mammograms, and immunizations. Annual skin checks with Dermatologydue to the increased risk of nonmelanoma skin cancers are also recommended. All questions answered. Ms. Carolina expressed understanding and was in agreement with the plan. Follow up: 6 months BILLING I personally spent a total of 30 minutes in both face to face and non face to face coordination of care as outlined above. Associated attestation - Yvrose Gomes P.A.-C., M.S. - 06/28/2023 3:41 PM CDT This is an attestation note. I saw and evaluated the patient. I reviewed the clinical note of MARY Her and discussed the case in detail. I agree with KRISTIN Mckeon' assessment and plan. There are no concerns for significant progression at this time and we can continue active surveillance.We will plan to see her back this fall. We discussed signs and symptoms for which to contact us in the interim, as we would certainly be happy to see sooner if needed. documented in this encounter Plan of Treatment Upcoming Encounters Date Type Department Care Team (Latest Contact Info) Description 12/15/2023 10:15 AM SENIOR STAFF PSYCHOLOGIST Clinical Communication Virtual Review in [address] [phone] 12/18/2023 7:30 AM SENIOR STAFF PSYCHOLOGIST Appointment Department of Laboratory Medicine and Pathology, [facility], in [address] [phone] Yvrose Gomes P.A.-C., M.S. [address] [place] [phone] 12/18/2023 11:30 AM SENIOR STAFF PSYCHOLOGIST Office Visit Division of Hematology in [address] [phone] Yvrose Gomes P.A.-C., M.S. [address] [place] [phone] Scheduled Orders Name Type Priority Associated Diagnoses Orde r Schedule Alkaline Phosphatase Lab Routine Chronic Lymphocytic Leukemia Of B Cell Type Not Having Achieved Remission (HCC) Expected: 12/18/2023, Expires: 09/27/2024 AST (Aspartate Aminotransferase) Lab Routine Chronic Lymphocytic Leukemia Of B Cell Type Not Having Achieved Remission (HCC) Expected: 12/18/2023, Expires: 09/27/2024 Bilirubin, Total Lab Routine Chronic Lymphocytic Leukemia Of B Cell Type Not Having Achieved Remission (HCC) Expected: 12/18/2023, Expires: 09/27/2024 CBC with Differential, Blood Lab Routine Chronic Lymphocytic Leukemia Of B Cell Type Not Having Achieved Remission (HCC) Expected: 12/18/2023, Expires: 09/27/2024 Creatinine with Estimated GFR Lab Routine Chronic Lymphocytic Leukemia Of B Cell Type Not Having Achieved Remission (HCC) Expected: 12/18/2023, Expires: 09/27/2024 LD (Lactate Dehydrogenase) Lab Routine Chronic Lymphocytic Leukemia Of B Cell Type Not Having Achieved Remission (HCC) Expected: 12/18/2023, Expires: 09/27/2024 Reticulocytes Lab Routine Chronic Lymphocytic Leukemia Of B Cell Type Not Having Achieved Remission (HCC) Expected: 12/18/2023, Expires: 09/27/2024 Immunoglobulin G (IgG) Lab Routine Chronic Lymphocytic Leukemia Of B Cell Type Not Having Achieved Remission (HCC) Expected: 12/18/2023, Expires: 09/27/2024 Scheduled Referrals Name Type Priority Associated Diagnoses Order Schedule Hematology office visit (clinic) [facility]; CLL; General Outpatient Referral Routine Expected: 12/18/2023, Expires: 09/27/2024 documented as of this encounter Visit Diagnoses Diagnosis Chronic Lymphocytic Leukemia Of B Cell Type Not Having Achieved Remission (HCC)- Primary documented in this encounter Additional Health Concerns Assessment Noted Time PHQ-9 Depression Total Score: 7 06/28/19 12 2:05 PM CDT documented as of this encounter
--- OUTSIDE RECORDS SUMMARY | 2023-09-27 10:22 | XMS_ITS | Clinical Summary ---
Author Organization [facility] Address [address] [place] [address] Care Team Providers Care Guard Driver Name Role Phone Unknown, Md Unavailable Unavailable Cameron Montgomery Primary Care Provider Unavailab Lianet Sherwood MD Unavailable Allergies Active Allergy Reactions Criticality Noted Date Comments Codeine High 03/04/2020 Other reaction(s): claustrophobia Medications Medication Sig Dispensed Refills Start Date End Date Status amitriptyline (ELAVIL) 10 mg oral tablet 11/30/2020 Active levothyroxine (SYNTHROID) 112 mcg oral tablet 11/26/2020 Active rosuvastatin (CRESTOR) 5 mg oral tablet 11/27/2020 Active traZODone (DESYREL) 100 mg oral tablet 10/08/2020 Active magnesium oxide (MAG-OX) 400 mg oral tablet Daily Active rizatriptan (MAXALT) 5 mg oral tablet Daily as needed Act lian topiramate (TOPAMAX) 25 mg oral tablet Take 1 tablet (25 mg) by mouth twice a day. 180 tablet 3 03/03/2021 Active predniSONE (DELTASONE) 10 mg oral tablet Take 1 tablet (10 mg) by mouth as directed. 5 day course for bad Migraine. 5 pills on day one. 4 Pills on day 2. 3 Pills on day 3. 2 Pills on day 4 and one pill on day 5. (5-4-3-2-1) 15 tablet 03/04/2021 Active galcanezumab-gnlm (EMGALITY PEN) 120 mg/mL SubQ PnIj Inject 1 mL (120 mg) into the muscle every 30 (thirty) days. First month should take two injections. Then every month. 3 mL 3 03/15/2021 Active Active Problems Problem Noted Date Diagnosed Date Amnesia 03/03/2021 Dyslipidemia 03/03/2021 Encounter for initial preven tive physical examination covered by Medicare 03/03/2021 Herpes simplex type 1 infection 03/03/2021 History of appendectomy 03/03/2021 History of carpal tunnel release of both wrists 03/03/2021 Coccydynia 12/14/2011 Displacement of lumbar inter vertebral disc without myelopathy 12/14/2011 Abnormal glandular Papanicolaou smear of cervix 02/28/2007 Overview (03/03/2021): Cyro [id number] Brachial plexus lesions 02/28/2007 Degeneration of cervical intervertebral disc Immunizations Name Administration Dates Next Due Influenza, high dose, quadrivalent, PF Pneumococcal PCV13 08/21/2019 SPIKEVAX (Moderna) 12+ Yrs M ONOVALENT COVID Vaccine 12/03/2020,05/05/2020,04/07/2020 Family History Medical History Relation Comments High Cholesterol Other Relation Status Comments Other Social History Tobacco Use Types Packs/Day Years Used Date Smoking Tobacco: Never Smokeless Tobacco: Never Sex and Gender Information Value Date Recorded Sex Assigned at Female 12/14/2020 10:07 AM SOLAR DESIGNER Gender Identity Female 12/14/2020 10:07 AM SOLAR DESIGNER Sexual Orientation Not on file Plan of Treatment Health Maintenance Due Date Last Done Comments Colonoscopy 1955 Hepatitis C Screening 1955 Mammogram Screening 1955 Medicare Wellness Visit 1955 Osteoporosis Screening 1955 Depression Assessment (PHQ-2) 1954 Yearly Review of HCD 09/30/2003 RSV 60+ Yrs (1 - 1-dose 60+ series) 2013 Zoster Vaccine (2 of 3) 2014 08/04/2014 Pneumococcal 65+ (2 of 2 - P PSV23 or PCV20) 08/20/2020 08/21/2019 COVID-19 Vaccine (5 - 2022-2 4 season) 2022 05/08/2021, 12/03/2020, 05/05/2020, Additional history exists Influenza Vaccine (#1) 2023 , 11/23/2018, 11/23/2018, Additional history exists Adult Tetanus Booster 03/29/2028 03/29/2018 , 10/27/2008, 02/06/1998, Additional history exists Care Teams Guard Driver Relationship Specialty Start Date End Date Unknown, NO ADDRESS/PHONE/FAX AFFILIATED PCP - Primary Care Clinic 11/30/20 Cameron Montgomery PCP - General 06/25/21 Lianet Mayo MD [address] [place] [address] Neurology 02/24/22
--- OUTSIDE RECORDS SUMMARY | 2023-09-27 10:22 | XMS_ITS | Referral Summary ---
Author Organization [facility] Address [address] [place] [address] Care Team Providers Care Pit Furnace Melter Name Role Phone Unavailable Primary Care Provider Unavailabl e Source Comments Patient records contain information from all sites at [facility]. For routine questions regarding patient records, call [phone] during business hours, M-F 8:00 AM - 5:00 PM Central Time. Record requests for emergency care only can be directed to [phone] at any time.[facility] Encounters Date Type Department Care Team Description 06/28/2023 2:00 PM CDT Office Visit Division of Hematology in [place], [place] [address] [place] [address] Yvrose Gomes P.A.-C., M.S. 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 11/27/2020 Active levothyroxine (SYNTHROID, LEVOTHROID) 112 mcg tablet Take 1 tablet by mouth daily. 11/26/2020 Active clobetasoL (TEMOVATE) 0.05 % cream APPLY CREAM TOPICALLY TO AFFECTED AREA EVERY DAY AT BEDTIME 4 TIMES A WEEK THEN ALTERNATE NIGHTS FOR 4 WEEKS THEN 2 NIGHTS WEEKLY Active azelastine (ASTEPRO) 205.5 mcg/spray (0.15 %) nasal spray 02/06/2022 Acti ve calcium carbonate 1,500 mg (600 mg calcium) tablet Take 2 tablets by mouth daily. 06/28/2011 Active cholecalciferol (VITAMIN D3) 25 mcg (1,000 Unit) capsule Take 50 mcg by mouth daily. 05/17/2012 Active diclofenac sodium (Voltaren Arthritis Pain) 1 % gel as needed. 11/06/2022 Active eletriptan (RELPAX) 40 mg tablet TAKE 1 TABLET IF HEADACHE RETURNS, THE DOSE MAY BE REPEATED AFTER 2 HRS, BUT NO MORE THAN 2/WEEK 02/06/2019 Active estradioL (ESTRACE) 0.1 mg/g (0.01%) vaginal cream APPLY A PEA SIZED AMOUNT TO URETHRA NIGHTLY FOR 2 WEEKS, THEN TWICE PER WEEK AFTER THAT FOR 6 WEEKS. Active gabapentin (NEURONTIN) 300 mg capsule Medrol Dose Pack scheduling ONLY. Active L. acidophilus/Bifid. animalis 31 billion cell capsule daily. Active magnesium oxide (MAG-OX) 400 mg (241.3 mg magnesium) tablet every evening. Active multivitamin tablet Take 1 tablet by mouth daily. 06/28/2011 Active oxymetazoline (AFRIN) 0.05 % nasal spray 02/07/2020 Active traZODone (DESYREL) 100 mg tablet Take 150 mg by mouth at bedtime. Active valACYclovir (VALTREX) 1000 mg tablet 02/06/2010 Active vit C/E/Zn/coppr/lutein/ zeaxan (OCUVITE LUTEIN AND ZEAXANTHIN ORAL) Take 1 capsule by mouth daily. 05/17/2012 Active ketoconazole (NIZORAL) 2 % cream Apply 1 Application topically 2 (two) times a week. Apply to FEET (ATHLETES FEET) Active ciclopirox (LOPROX) 0.77 % cream Apply 1 Application topically every other day. Gently massage into affected areas and surrounding skin Active hydrocortisone-pramo xine (ANALPRAM-HC) 2.5-1 % rectal cream Insert 1 Application into the rectum 2 (two) times a week. Active propranoloL (INDERAL) 40 mg tablet Take 40 mg by mouth daily. 06/26/2023 Active Active Problems Problem Noted Date Diagnosed Date Chronic Lymphocytic Leukemia Of B Cell Type Not Having Achieved Remission 06/28/2023 Immunizations Name Administration Dates Next Due DTaP (Infanrix, Tripedia) 10/27/2008 H1N1 Inj Preservative Free 01/27/2009 HZV (ZOSTAVAX) 08/04/2014 Influenza (IM) Preservative Free 11/04/2010 Influenza TIV (IM) 10/26/2014, 3,11/09/2011,2010,10/27/2008,01/01/2007 Influenza high dose QV(65 ye ars or older) (PF) 11/24/2021,11/05/2020 Influenza, Injectable, Mdck, Preservative Free, Quadrivalent 12/06/2017 Influenza, Quadrivalent, Adj uvanted, Preservative Free 11/01/2022 Influenza, Seasonal, Injectable 10/27/19 15,01/10/2013,11/09/2011,2008 Influenza, Unspecified 11/05/2020,2018,10/12/2017,2008 PCV13 08/21/2019 PPSV23 08/26/2021 Td (Adult), adsorbed 07/20/1983 Td, (Adult) Unspecified 02/06/1998 Tdap 03/29/2018,10/27/2008 influenza high dose (65 year s or older) (PF) 11/23/2018 influenza vaccine quad (FLUZONE/FLUARIX) (6 months and older)(PF) 11/01/2022,11/23/2018,12/06/2017,2016,11/27/2015,10/26/2014,01/10/2013,1 ,11/04/2010,01/27/2009, 009 Social History Tobacco Use Types Packs/Day Years [...] your living situation today? I have a [facility] place to live 12/04/2022 Sex and Gender Information Value Date Recorded Sex Assigned at Female 12/04/2022 10:03 AM CDT Gender Identity Female 12/04/2022 10:03 AM CDT Sexual Orientation Straight 12/04/2022 10 :03 AM CDT Last Filed Vital Signs Vital Sign Reading Time Taken Comments Blood Pressure 111/64 06/28/2023 1:56 PM CDT Pulse 76 06/28/2023 1:56 PM CDT Temperature 36 ??C (96.8 ??F) 06/28/2023 1:5 6 PM CDT Respiratory Rate 18 06/28/2011 12:5 0 PM CDT Vital sign result from Clinical Notes. Oxygen Saturation - - Inhaled Oxygen Concentration - - Weight 57.3 kg (126 lb 5.2 oz) 06/28/2023 1:56 PM CDT Height 159.5 cm (5' 2.8) 06/28/2023 1: 56 PM CDT Body Mass Index 22.52 06/28/2023 1:56 PM CDT Plan of Treatment Upcoming Encounters Date Type Department Care Team (Latest Contact Info) Description 12/15/2023 10:15 AM MOVEMENT EDUCATION SPECIALIST Clinical Communication Virtual Review in [place], [place] [address] [place] [address] 12/18/2023 7:30 AM MOVEMENT EDUCATION SPECIALIST Appointment Department of Laboratory Medicine and Pathology, [facility], in [place], [place] [address] [place] [phone] Yvrose Gomes P.A.-C., M.S. [address] [place] [phone] 12/18/2023 11:30 AM MOVEMENT EDUCATION SPECIALIST Office Visit Division of Hematology in [place], [place] [address] [place] [phone] Yvrose Gomes P.A.-C., M.S. [address] [place] [phone] Procedures Procedure Name Priority Date/Time Associated Diagnosis Comments IMMUNOGLOBULIN G (IGG), S Routine 06/28/2023 10:05 AM CDT Chronic Lymphocytic Leukemia Of B Cell Type Not Having Achieved Remission (HCC) LACTATE DEHYDROGENASE (LD), S Routine 06/28/2023 10:05 AM CDT Chronic Lymphocytic Leukemia Of B Cell Type Not Having Achieved Remission (HCC) CREATININE WITH EGFR, S/P Routine 06/28/2023 10:05 AM CDT Chronic Lymphocytic Leukemia Of B Cell Type Not Having Achieved Remission (HCC) ALKALINE PHOSPHATASE, S/P Routine 06/28/2023 10:05 AM CDT Chronic Lymphocytic Leukemia Of B Cell Type Not Having Achieved Remission (HCC) RETICULOCYTES, B Routine 06/28/2023 10:0 4 AM CDT Chronic Lymphocytic Leukemia Of B Cell Type Not Having Achieved Remission (HCC) CBC WITH DIFFERENTIAL, B Routine 024 10:04 AM CDT Chronic Lymphocytic Leukemia Of B Cell Type Not Having Achieved Remission (HCC) BILIRUBIN, TOT, S/P Routine 06/28/2023 1 0:04 AM CDT Chronic Lymphocytic Leukemia Of B Cell Type Not Having Achieved Remission (HCC) ASPARTATE AMINOTRANSFERASE (AST), S/P Routine 06/28/2023 10:04 AM CDT Chronic Lymphocytic Leukemia Of B Cell Type Not Having Achieved Remission (HCC) from Last 3 Months Results * Alkaline Phosphatase (06/28/2023 10:05 AM CDT) [facility] Alkaline Phosphatase, S 82 35 - 104 U/L 06/28/2023 11:10 AM CDT DTL Blood (Blood, Venous) 06/28/2023 10:05 AM CDT 06/28/2023 10:46 AM CDT Madisyn Farooq M.D. LAB BLOOD ADD-ON [facility] [address] [place], [place] [phone] [place] [address] [address] [place] [address] * LD (Lactate Dehydrogenase) (06/28/2023 10:05 AM CDT) [facility] LD 181 122 - 222 U/L 06/28/2023 11:32 AM CDT DT Blood (Blood, Venous) 06/28/2023 10:05 AM CDT 06/28/2023 11:02 AM CDT Madisyn Farooq M.D. LAB BLOOD NON ADD-ON [facility] [address] [place] [address], [facility] [address] [place] [address] * Immunoglobulin G (IgG) (06/28/2023 10:05 AM CDT) [facility] Immunoglobulin G (IgG), S 858 767 - 1590 mg/dL 06/28/2023 2:49 PM CDT [facility] Blood (Blood, Venous) 06/28/2023 10:05 AM CDT 06/28/2023 2:09 PM CDT Madisyn Farooq M.D. LAB BLOOD ADD-ON [facility] [address] [place] [address] [facility] [address] [place] [address] * Creatinine with Estimated GFR (06/28/2023 10:05 AM CDT) Creatinine 1.00 0.59 - 1.04 mg/dL 06/28/2023 11:10 AM CDT DTL Estimated GFR (eGFR) 61 >=60 mL/min/BSA 06/28/2023 11:10 AM CDT DTL Comment: Estimated GFR calculated using the 2020 CKD_EPI creatinine equation. Blood (Blood, Venous) 06/28/2023 10:05 AM CDT 06/28/2023 10:46 AM CDT Maidsyn Farooq M.D. LAB BLOOD ADD-ON [facility] [address] [place] [address], [facility] [address] [place] [address] * Reticulocytes (06/28/2023 10:04 AM CDT) Reticulocytes, B 1.32 0.60 - 2.71 % 06/28/2023 10:59 AM CDT DTL Absolute Reticulocyte 57.4 30.4 - 110.9 x10(9)/L 06/28/2023 10:59 AM CDT DTL Blood (Blood, Venous) 06/28/2023 10:04 AM CDT 06/28/2023 10:23 AM CDT Madisyn Farooq M.D. LAB BLOOD ADD-ON [facility] [address] [place] [address], [facility] DTL [facility] [address] [place] [address] * (ABNORMAL) CBC with Differential, Blood (06/28/2023 10:04 AM CDT) [facility] Hemoglobin 13.2 11.6 - 15.0 g/dL 06/28/2023 10:59 AM CDT DTL Hematocrit 39.6 35.5 - 44.9 % 06/28/2023 10:59 AM CDT DTL Erythrocytes 4.35 3.92 - 5.13 x10(12)/L 06/28/2023 10:59 AM CDT DTL MCV 91.0 78.2 - 97.9 fL 06/28/2023 10:59 AM CDT DTL RBC Distrib Width 12.5 12.2 - 16.1 % 06/28/2023 10:59 AM CDT DTL Platelet Count 380(H) 157 - 371 x10(9)/L 06/28/2023 10:59 AM CDT DTL Leukocytes 13.3(H) 3.4 - 9.6 x10(9)/L 06/28/2023 10:59 AM CDT DTL Neutrophils 4.92 1.56 - 6.45 x10(9)/L 06/28/2023 11:33 AM CDT [facility] Comment:Rechecked Lymphocytes 7.47(H) 0.95 - 3.07 x10(9)/L 06/28/2023 11:33 AM CDT DTL Monocytes 0.64 0.26 - 0.81 x10(9)/L 06/28/2023 11:33 AM CDT DTL Eosinophils 0.13 0.03 - 0.48 x10(9)/L 06/28/2023 11:33 AM CDT DTL Basophils 0.10(H) 0.01 - 0.08 x10(9)/L 06/28/2023 11:33 AM CDT DTL Blood (Blood, Venous) 06/28/2023 10:04 AM CDT 06/28/2023 10:23 AM CDT Madisyn Farooq M.D. LAB BLOOD ADD-ON [facility] [address] [place] [address], [facility] DTL [facility] [address] [place] [address] [facility] [address] [place] [address] * AST (Aspartate Aminotransferase) (06/28/2023 10:04 AM CDT) Aspartate Aminotransferase (AST), P 17 8 - 43 U/L 06/28/2023 10:41 AM CDT [facility] Blood (Blood, Venous) 06/28/2023 10:04 AM CDT 06/28/2023 10:23 AM CDT Madisyn Farooq M.D. LAB BLOOD ADD-ON Performing Organization Address City/[facility]/ZIP Co de Phone Number [facility] [address] [place] [address], [facility] METH [facility] [address] [place] [address] * Bilirubin, Total (06/28/2023 10:04 AM CDT) Bilirubin, Total, P 0.2 0.0 - 1.2 mg/dL 06/28/2023 10:41 AM CDT [facility] Blood (Blood, Venous) 06/28/2023 10:04 AM CDT 06/28/2023 10:23 AM CDT Madisyn Farooq M.D. LAB BLOOD ADD-ON [facility] [address] [place] [address], [facility] METH [facility] [address] [place] [address] from Last 3 Months
--- OUTSIDE RECORDS SUMMARY | 2023-09-27 10:22 | XMS_ITS ---
Author Organization [facility] Address [address] [place] [address] Care Team Providers Care Roofer Vinyl Coating Name Role Phone Unavailable Unavailable Unavailable Surgery Details Not on file Complications Check Surgery Details section. Procedure Estimated Blood Loss Check Surgery Details section. Procedure Findings Check Surgery Details section. Procedure Specimens Taken Check Surgery Details section.
--- OUTSIDE RECORDS SUMMARY | 2023-09-27 10:22 | XMS_ITS | Referral Summary ---
Author Organization [facility] Address [address] [place] [address] Care Team Providers Care Clinical Unit Coordinator Name Role Phone Cameron Montgomery MD Primary Care Provider [phone] Allergies No known active allergies Social History Tobacco Use Types Packs/Day Years Used Date Smoking Tobacco: Never Assessed Adolescent Education Answer Date Record ed Getting School Help Needed Not on file 10/29 Sex and Gender Information Value Date Recorded Sex Assigned at Female 04/07/2020 8:36 PM INSIGHT DIRECTOR Gender Identity Female 04/07/2020 8:36 PM INSIGHT DIRECTOR Sexual Orientation Straight 04/07/2020 8: 37 PM INSIGHT DIRECTOR Plan of Treatment Not on file Care Teams Clinical Unit Coordinator Relationship Specialty Start Date End Date Cameron Montgomery MD PCP - General Family Medicine 04/08/20
--- OUTSIDE RECORDS SUMMARY | 2023-09-27 10:22 | XMS_ITS | Referral Summary ---
Author Organization [facility] Address [address] [place] [address] Care Team Providers Care Environmental Protection Inspector Name Role Phone Unknown, Md Unavailable Unavailable Cameron Montgomery Primary Care Provider Unavailab Lianet Sherwood MD Unavailable [phone] Allergies Active Allergy Reactions Criticality Noted Date [...] smear of cervix 02/28/2007 Overview (03/03/2021): Cyro [id number] Brachial plexus lesions 02/28/2007 Degeneration of cervical intervertebral disc Immunizations Name Administration Dates Next Due Influenza, high dose, quadrivalent, PF Pneumococcal PCV13 08/21/2019 SPIKEVAX (Moderna) 12+ Yrs M ONOVALENT COVID Vaccine 12/03/2020,05/05/2020,04/07/2020 Social History Tobacco Use Types Packs/Day Years Used Date Smoking Tobacco: Never Smokeless Tobacco: Never Sex and Gender Information Value Date Recorded Sex Assigned at Female 12/14/2020 10:07 AM PRINTING SUPPLIES SALES REPRESENTATIVE Gender Identity Female 12/14/2020 10:07 AM PRINTING SUPPLIES SALES REPRESENTATIVE Sexual Orientation Not on file Plan of Treatment Not on file Care Teams Environmental Protection Inspector Relationship Specialty Start Date End Date Unknown, NO ADDRESS/PHONE/FAX AFFILIATED PCP - Primary Care Clinic 11/30/20 Cameron Montgomery PCP - General 06/25/21 Lianet Mayo MD [address] [facility] [place] [address] Neurology 02/24/22
--- OUTSIDE RECORDS SUMMARY | 2023-09-27 10:22 | XMS_ITS | Clinical Summary ---
Author Organization [facility] Address [address] [place] [address] Care Team Providers Care Freelance Web Designer Name Role Phone Cameron Montgomery MD Primary Care Provider Allergies No known active allergies Social History Tobacco Use Types Packs/Day Years Used Date Smoking Tobacco: Never Assessed Adolescent Education Answer Date Record ed Getting School Help Needed Not on file 10/29 Sex and Gender Information Value Date Recorded Sex Assigned at Female 04/07/2020 8:36 PM SUPERVISOR FURNACE ROOM Gender Identity Female 04/07/2020 8:36 PM SUPERVISOR FURNACE ROOM Sexual Orientation Straight 04/07/2020 8: 37 PM SUPERVISOR FURNACE ROOM Plan of Treatment Not on file Care Teams Freelance Web Designer Relationship Specialty Start Date End Date Cameron Montgomery MD PCP - General Family Medicine 04/08/20
--- OUTSIDE RECORDS SUMMARY | 2023-09-27 10:22 | XMS_ITS | Clinical Summary ---
Author Organization [facility] Address [place], [place] [address] Care Team Providers Care Commanding Officer Garage Name Role Phone Cameron Montgomery MD Primary Care Provider [phone] Allergies No known active allergies Medications Medication Sig Dispensed Refills Start Date End Date Status VALTREX 500 MG TAB take 1000mg daily prn 0 10/27/2008 Active CALCIUM CARBONATE 1,000 MG TAB 2400 mg daily 0 10/27/2008 Active MULTIVITAMIN TAB take 1 tablet by oral route once daily with food 0 10/27/2008 Active glucosamine-chondroi tin, 500-400 mg, (COSAMIN DS 500/400) 500-400 mg Cap Take 1 capsule by mouth 3 times daily. 0 09/09/2010 Active omega-3 fatty acids-vitamin E (FISH OIL) 1,000 mg cap Take 1 capsule by mouth once daily. 0 11/09/2011 Active cholecalciferol (VITAMIN D) 1,000 unit capsule Take by mouth. 0 05/17/2012 Active Vit C-Vit T-Jqogkt-Tksosjzr (OCUVITE LUTEIN) cap Take 1 capsule by mouth once daily. 0 05/17/2012 Active cyanocobalamin (VITAMIN B-12) 1,000 mcg tablet Take 1 tablet by mouth once daily. 0 05/17/2012 Active magnesium gluconate (MAGONATE) 500 mg Tab Take 1 tablet by mouth once daily. 0 05/17/2012 Active Vitamins-Lipotropics (LIPOFLAVOVIT) Tab Take 3,000 Each by mouth. 0 05/17/2012 Active amitriptyline (ELAVIL) 10 mg tabletIndications:Ch ronic pain syndrome TAKE 2-4 TABLETS BY MOUTH AT BEDTIME. 240 tablet 2 03/22/2013 Active traMADol (ULTRAM) 50 mg tabletIndications:De generation of cervical intervertebral disc TAKE 1 TABLET BY MOUTH 4 TIMES DAILY IF NEEDED FOR PAIN. 90 tablet 0 04/27/2013 Active medication order composerIndications: Menopausal symptoms once daily. 2% progesterone cream. Apply 1 ml to clean hairless skin daily. 30 g 12 06/14/2013 Active levothyroxine (SYNTHROID) 100 mcg tabletIndications:Hy pothyroidism (acquired) TAKE ONE TABLET BY MOUTH ONCE DAILY BEFORE BREAKFAST 90 tablet 05/26/2016 Active cetirizine (ZYRTEC) 10 mg tablet Daily as needed 06/21/2021 Active docusate (COLACE) 100 mg capsule 2 X Week Active eletriptan (RELPAX) 40 mg tablet TAKE 1 TABLET IF HEADACHE RETURNS, THE DOSE MAY BE REPEATED AFTER 2 HRS, BUT NO MORE THAN 2/WEEK 01/10/2021 Active fluticasone furoate (VERAMYST) 27.5 mcg/actuation nasal spray Daily 06/21/2021 Active gabapentin (NEURONTIN) 300 mg capsule Bedtime Active galcanezumab-gnlm (Emgality Pen) 120 mg/mL pen Inject 120 mg intramuscular. 03/15/2021 Active Lacto.acidophilus-Bi f.animalis 31 billion cell cap once daily. Active predniSONE (DELTASONE) 10 mg tablet Take 10 mg by mouth. 03/04/2021 Active magnesium oxide (MAG-OX 400) 400 mg tablet once daily. Active pseudoephedrine (SUDAFED) 30 mg tablet Bedtime Active Psyllium Husk-Sucrose 3.4 gram/7 gram powd 2 X Week Active rizatriptan (MAXALT) 5 mg tablet Daily as needed Active rosuvastatin (CRESTOR) 5 mg tablet Bedtime 11/27/2020 Active topiramate (TOPAMAX) 25 mg tablet Take 25 mg by mouth in the morning and 25 mg in the evening. 03/03/2021 Active traZODone (DESYREL) 100 mg tablet Bedtime 10/08/2020 Active azelastine 137 mcg/actuation (ASTELIN) nasal sprayIndications:Non allergic rhinitis Inhale 2 Sprays into affected nostril(s) in the morning and 2 Sprays in the evening. 30 mL 6 08/25/2021 Active Active Problems Problem Noted Date Diagnosed Date Fibromyalgia 01/10/2013 Displacement of lumbar inter vertebral disc without myelopathy 12/14/2011 Coccydynia 12/14/2011 Screen for colon cancer 12/07/2010 Overview: Colonoscopy 12/2010 normal repeat in 10 years Chronic pain syndrome 08/27/2010 Lichen sclerosus et atrophicus 07/06/2010 Herpetic gingivostomatitis 06/06/2007 Unspecified hypothyroidism 02/28/2007 Degeneration of cervical intervertebral disc Brachial plexus lesions 02/28/2007 Mucous polyp of cervix 02/28/2007 Abnormal glandular Papanicolaou smear of cervix 02/28/2007 Overview: Cecilia [id number]'s Resolved Problems Problem Noted Date Diagnosed Date Resolved Date Lichen planus 01/26/2010 07/06/2010 Immunizations Name Administration Dates Next Due Influenza A (H1N1), Inactiva victoria (Age 6-35 Mos) 01/27/2009 Influenza Virus, Unspecified 11/05/2020,11/24/19 19,10/12/2017 Influenza, High-dose Inactivated 11/23/2018 Influenza, High-dose Quadriv alent Inactivated 11/05/2020 Influenza, IIV3 (Age 6-35 mos) 11/04/2010 Influenza, IIV3 (Age >=3 years) 10/27/19 15,01/10/2013,11/09/2011,2010,10/27/2008,01/01/2007 Influenza, IIV4 11/11/2016,11/27/2015 Influenza,CCIIV4 PRESERV FREE 12/06/2017 Pneumococcal conj 13-Valent (Prevnar 13) 08/21/2019 Td (Age >=7 Years) 02/06/1998,07/20/1983 Tdap 03/29/2018,10/27/2008 Zoster (Zostavax-ZVL, live) 08/04/2014 Family History Medical History Relation Name Comments Heart Disease Father [place] Psychiatric illness Maternal Grandfather dementia Hyperlipidemia Mother Cancer Paternal Aunt Cancer Paternal Grandfather Hyperlipidemia Sister Cancer-breast No Family History Relation Name Status Comments Father Maternal Grandfather Mother Paternal Aunt Paternal Grandfather Sister Social History Tobacco Use Types Packs/Day Years Used Date Smoking Tobacco: Never Smokeless Tobacco: Never Tobacco Cessation:Counseling Given: Yes Alcohol Use Standard Drinks/Week Comments Yes 0 (1 standard drink = 0.6 oz pur e alcohol) minimal Social Connections Answer Date Recorded Frequency of Communication with Friends and Fami ly Not on file 08/25/2021 Sex and Gender Information Value Date Recorded Sex Assigned at Not on file Gender Identity Not on file Sexual Orientation Not on file Obstetrics History Para Term AB IAB SAB Ectopic Multiple Livin g Live Births 3 3 3 Date Outcome GA Total Labor Labor/2nd/3rd Weight Sex Type Anes PTL Vani A1 A5 Name Clin Para Para Para Last Filed Vital Signs Vital Sign Reading Time Taken Comments Blood Pressure 110/60 08/25/2021 9:54 AM CDT Pulse 82 08/25/2021 9:54 AM CDT Temperature 36.4 ??C (97.6 ??F) 08/25/2021 9:54 AM CD T Respiratory Rate 16 05/23/2014 1:17 PM CDT [...] age 12+ 1965 Hepatitis C screening for ag e 18-79 09/30/1971 Mammogram for age 45-75 01/10/2014 01/11/20 13, 01/05/2011, 01/04/2011, Additional history exists Zoster (shingles) series for age 50+ (2 of 3) 2014 08/04/2014 Lipids for age 45-75 01/10/2018 01/10/2013, 12/20/2010, 02/28/2007, Additional history exists DEXA/DXA scan for age 65+ 2018 12/06/2010 Medicare Wellness for age 65+ 2018 Pneumococcal series for age 65+ (2 of 2 - PPSV23 or PCV20) 08/20/2020 08/21/2019 Colonoscopy through age 75 12/07/202012/07, 12/07/2010, 12/07/2010 BMI (ht and wt on same day) for age 18+ 08/25/2022 08/25/2021 COVID-19 vaccine series ( season) 2022 05/08/2021, 12/03/2020, 05/05/2020, Additional history exists Influenza for age 65+ 10/08/2023 11/05/2020 , 11/05/2020, 11/23/2018, Additional history exists Tetanus booster 03/29/2028 03/29/2018, 10/08, 02/06/1998, Additional history exists Tdap Completed 03/29/2018, 10/27/2008 Procedures Procedure Name Priority Date/Time Associated Diagnosis Comments LIPID PANEL W REFLEX MEASURED LDL Routine 01/10/2013 11:45 AM BALLET TEACHER Screening, lipid XR MAMMO BILAT SCREEN FFDM (IA) Routine 01/10/2013 10:06 AM BALLET TEACHER Other screening mammogram SCAN-BONE DENSITOMETRY DEXA 12/06/2010 12:00 AM CDT from Last 3 Months or Most Recently Relevant to Health Maintenance Results * (ABNORMAL) LIPID PANEL W REFLEX MEASURED LDL (01/10/2013 11:45 AM BALLET TEACHER) CHOLESTEROL,TOTAL 283(H) 100 - 199 mg/dL 01/10/2013 12:34 PM [facility] TRIGLYCERIDES 191(H) <150 mg/dL 01/10/2013 12:34 PM [facility] HDL CHOLESTEROL 67 >40 mg/dL 3 12:34 PM [facility] NON-HDL CHOLESTEROL 216(H) <145 mg/dl 01/10/2013 12:34 PM [facility] CHOL/HDL RATIO 4.22 <4.50 01/10/2013 12:34 PM [facility] LDL CHOLESTEROL 178(H) <=130 mg/dL 01/10/2013 12:34 PM [facility] PATIENT STATUS FASTING 01/10/2013 12:34 PM BALLET TEACHER [facility] Blood specimen (specimen) BLOOD SPECIMEN / Unknown Venipuncture / Unknown 01/10/2013 11:45 AM BALLET TEACHER 01/10/2013 11:45 AM BALLET TEACHER Agueda Clark NP CHEMISTRY Performing Organization Address City/State/[facility] Co de Phone Number [facility] [address] [place], [place] [id number] * XR MAMMO BILAT SCREEN FFDM (01/10/2013 10:06 AM BALLET TEACHER) Anatomical Region Laterality Modality BREASTS, Breast Left, Breast Right Bilateral Mammography Impressions 01/10/2013 12:23 PM BALLET TEACHER ??There is no radiographic evidence for malignancy. ??Recommend annual mammograms. A lay language report of this examination will be provided to the patient. MAMMOGRAM ASSESSMENT: ??ACR 1 Negative Narrative 01/10/2013 12:23 PM BALLET TEACHER XR MAMMO BILAT SCREEN FFDM [G0202.0] CLINICAL HISTORY: ??This is an asymptomatic 57 y.o. patient. INDICATION FOR EXAM: Mammogram Screening. TECHNIQUE: CC & MLO views were obtained. ??This digital study was evaluated with the assistance of Computer-Aided Detection. ?? COMPARISON FILM: Yes 01/05/11 [facility] 10/27/08 [facility] FINDINGS: ??Mammographically, the breast tissue has scattered fibroglandular densities (approximately 25% - 50% glandular). ??There are no dominant masses, suspicious micro calcifications or areas of architectural distortion. Procedure Note Jose Alejandro Donis MD - 01/10/2013 XR MAMMO BILAT SCREEN FFDM [G0202.0] CLINICAL HISTORY: This is an asymptomatic 57 y.o. patient. INDICATION FOR EXAM: Mammogram Screening. TECHNIQUE: CC & MLO views were obtained. This digital study was evaluatedwith the assistance of Computer-Aided Detection. COMPARISON FILM: Yes 01/05/11 [facility] 10/27/08 [facility] FINDINGS: Mammographically, the breast tissue has scatteredfibroglandular densities (approximately 25% - 50% glandular). There areno dominant masses, suspicious micro calcifications or areas ofarchitectural distortion. IMPRESSION: There is no radiographic evidence for malignancy. Recommendannual mammograms. A lay language report of this examination will be provided to the patient. MAMMOGRAM ASSESSMENT: ACR 1 Negative Renetta Paiz Detert DO MAMMO * SCAN-BONE DENSITOMETRY DEXA (12/06/2010 12:00 AM CDT) Anatomical Region Laterality Modality Other Narrative Procedure Note Scanner - 12/06/2010 12:00 AM CDT Scanner OTHER from Last 3 Months or Most Recently Relevant to Health Maintenance Care Teams Commanding Officer Garage Relationship Specialty Start Date End Date Cameron Montgomery MD PCP - General Family Practice 09/27/22
--- OUTSIDE RECORDS SUMMARY | 2023-09-27 10:22 | XMS_ITS | Clinical Summary ---
Author Organization [facility] Address [address] [place] [address] Care Team Providers Care Motors And Controls Tester Name Role Phone Unavailable Primary Care Provider Unavailabl e Source Comments Patient records contain information from all sites at [facility]. For routine questions regarding patient records, call [phone] during business hours, M-F 8:00 AM - 5:00 PM Central Time. Record requests for emergency care only can be directed to [phone] at any time.[facility] Allergies Active Allergy Reactions Criticality Noted Date [...] Cell Type Not Having Achieved Remission 06/28/2023 Encounters Date Type Department Care Team Description 06/28/2023 2:00 PM CDT Office Visit Division of Hematology in [place], [place] [address] [place] [address] Yvrose Gomes P.A.-C., M.S. 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) from Last 3 Months Immunizations Name Administration Dates Next Due DTaP [...] (6 months and older)(PF) 11/01/2022,11/23/2018,12/06/2017,2016,11/27/2015,10/26/2014,01/10/2013,1 ,11/04/2010,01/27/2009, 009 Family History Medical History Relation Name Comments Coronary artery disease Father Alfred Leukemia Father Alfred in his 80s, called it old age leukemia Arthritis Mother Ngozi Hyperlipidemia Mother Ngozi Leukemia Mother Ngozi thrombocytoleuk openia Migraines Mother Ngozi Thyroid disease Mother Ngozi Relation Name Status Comments Father Alfred Mother Ngozi Social History Tobacco Use Types Packs/Day Years [...] your living situation today? I have a [facility] place to live 12/04/2022 Sex and [...] (Latest Contact Info) Description 12/15/2023 10:15 AM SKI PATROL DIRECTOR Clinical Communication Virtual Review in [place], [place] [address] [place] [address] 12/18/2023 7:30 AM SKI PATROL DIRECTOR Appointment Department of Laboratory Medicine and Pathology, [facility], in [place], [place] [address] [place] [phone] Yvrose Gomes P.A.-C., M.S. [address] [place] [phone] 12/18/2023 11:30 AM SKI PATROL DIRECTOR Office Visit Division of Hematology in [place], [place] [address] [place] [phone] Yvrose Gomes P.A.-C., M.S. [address] [place] [phone] Health Maintenance Due Date Last Done Comments Bone Density Scan (Osteoporosis Screen) 1953 CT Colonography 1953 Cologuard 1955 Colonoscopy 1955 Colorectal Cancer Screening 1955 FIT 1953 Fasting Glucose for Diabetes Screening 1955 Hepatitis C Screening 1955 Mammogram 1955 Thyroid Stimulating Hormone (TSH) test for thyroid function 1953 Depression Screening (Annual PHQ-2) 02/06/2023 Fall Risk Screen (Annual) 02/06/2023 COVID-19 Vaccine ( season) 2023 01/03/2023, 05/08/2021, 12/03/2020, Additional history exists Influenza Vaccine (#1) 2023 , 11/01/2022, 11/24/2021, Additional history exists DTaP,Tdap,and Td Vaccines (4 - Td or Tdap) 03/29/2028 03/29/2018, 10/27/2008, 10/27/2008, Additional history exists Pneumococcal vaccine (65+ years) Completed 08/26/2021, 08/21/2019 Zoster Vaccines Completed 03/12/2023, 12/08, 08/04/2014 HPV Vaccines Aged Out No longer eligi ble based on patient's age to complete this topic Procedures Procedure Name Priority Date/Time Associated Diagnosis [...] * Alkaline Phosphatase (06/28/2023 10:05 AM CDT) [facility] Alkaline Phosphatase, S 82 35 - 104 U/L 06/28/2023 11:10 AM CDT [facility] Blood (Blood, Venous) 06/28/2023 10:05 AM CDT 06/28/2023 10:46 AM CDT Madisyn Farooq M.D. LAB BLOOD ADD-ON [facility] [address] [place] [address], [facility] [address] [place] [address] * LD (Lactate Dehydrogenase) (06/28/2023 10:05 AM CDT) [facility] LD 181 122 - 222 U/L 06/28/2023 11:32 AM CDT [facility] Blood (Blood, Venous) 06/28/2023 10:05 AM CDT 06/28/2023 11:02 AM CDT Madisyn Farooq M.D. LAB BLOOD NON ADD-ON Performing Organization Address City/[facility]/ZIP Co de Phone Number [facility] [address] [place] [address], [facility] [address] [place] [address] * Immunoglobulin G (IgG) (06/28/2023 10:05 AM CDT) [facility] Immunoglobulin G (IgG), S 858 767 - 1590 mg/dL 06/28/2023 2:49 PM CDT [facility] Blood (Blood, Venous) 06/28/2023 10:05 AM CDT 06/28/2023 2:09 PM CDT Madisyn Farooq M.D. LAB BLOOD ADD-ON [facility] [address] [place], [place] [id number] [place] [address] [place] [address] * Creatinine with Estimated GFR (06/28/2023 10:05 AM CDT) Creatinine 1.00 0.59 - 1.04 mg/dL 06/28/2023 11:10 AM CDT D[facility] Estimated GFR (eGFR) 61 >=60 mL/min/BSA 06/28/2023 11:10 AM CDT [facility] Comment: Estimated GFR calculated using the 2020 CKD_EPI creatinine equation. Blood (Blood, Venous) 06/28/2023 10:05 AM CDT 06/28/2023 10:46 AM CDT Madisyn Farooq M.D. LAB BLOOD ADD-ON [facility] [address] [place], [place] [id number] [place] [address] [address] * Reticulocytes (06/28/2023 10:04 AM CDT) Reticulocytes, B 1.32 0.60 - 2.71 % 06/28/2023 10:59 AM CDT DTL Absolute Reticulocyte 57.4 30.4 - 110.9 x10(9)/L 06/28/2023 10:59 AM CDT [facility] Blood (Blood, Venous) 06/28/2023 10:04 AM CDT 06/28/2023 10:23 AM CDT Madisyn Farooq M.D. LAB BLOOD ADD-ON [facility] [address] [place], [place] [address] [place] [id number] * (ABNORMAL) CBC with Differential, Blood (06/28/2023 10:04 AM CDT) Hemoglobin 13.2 11.6 - 15.0 g/dL 06/28/2023 [...] - 6.45 x10(9)/L 06/28/2023 11:33 AM CDT [facility] Comment:Rechecked Lymphocytes 7.47(H) 0.95 - 3.07 x10(9)/L 06/28/2023 11:33 AM CDT DTL Monocytes 0.64 0.26 - 0.81 x10(9)/L 06/28/2023 11:33 AM CDT DTL Eosinophils 0.13 0.03 - 0.48 x10(9)/L 06/28/2023 11:33 AM CDT DTL Basophils 0.10(H) 0.01 - 0.08 x10(9)/L 06/28/2023 11:33 AM CDT [facility] Blood (Blood, Venous) 06/28/2023 10:04 AM CDT 06/28/2023 10:23 AM CDT Madisyn Farooq M.D. LAB BLOOD ADD-ON [facility] [address] [place] [address], [facility] DTL [facility] [address] [place] [address] [facility] [address] [place] [address] * AST (Aspartate Aminotransferase) (06/28/2023 10:04 AM CDT) Aspartate Aminotransferase (AST), P 17 8 - 43 U/L 06/28/2023 10:41 AM CDT [facility] Blood (Blood, Venous) 06/28/2023 10:04 AM CDT 06/28/2023 10:23 AM CDT Madisyn Farooq M.D. LAB BLOOD ADD-ON Performing Organization Address City/[facility]/ZIP Co de Phone Number [facility] [address] [place] [address], [facility] METH [facility] [address] [place] [address] * Bilirubin, Total (06/28/2023 10:04 AM CDT) Bilirubin, Total, P 0.2 0.0 - 1.2 mg/dL 06/28/2023 10:41 AM CDT [facility] Blood (Blood, Venous) 06/28/2023 10:04 AM CDT 06/28/2023 10:23 AM CDT Madisyn Farooq M.D. LAB BLOOD ADD-ON Performing Organization Address City/[facility]/ZIP Co de Phone Number [facility] [address] [place] [address], [place] METH [facility] [address] [place] [address] from Last 3 Months
--- OUTSIDE RECORDS SUMMARY | 2023-09-27 10:22 | XMS_ITS | Encounter Summary ---
Author Organization [facility] Address [address] [place] [address] Care Team Providers Care Industrial Tractor Driver Name Role Phone Unavailable Primary Care Provider Unavailabl e Reason for Visit * Reason Onset Date Comments Pre-visit Intake 06/26/2023 Encounter Details Date Type Department Care Team (Latest Contact Info) Description 06/26/2023 8:15 AM CDT Clinical Communication Virtual Review in [place], [place] [address] [place] [phone] Pre-visit Intake Social History Tobacco Use Types Packs/Day Years [...] money to buy more. Never true 12/05/19 23 Within the past 12 months, t he [...] your living situation today? I have a [facility] place to live 12/04/2022 Sex and Gender Information Value Date Recorded Sex Assigned at Female 12/04/2022 10:03 AM CDT Gender Identity Female 12/04/2022 10:03 AM CDT Sexual Orientation Straight 12/04/2022 10 :03 AM CDT documented as of this encounter Plan of Treatment Upcoming Encounters Date Type Department Care Team (Latest Contact Info) Description 12/15/2023 10:15 AM EXTRUSION SUPERVISOR Clinical Communication Virtual Review in [place], [place] [address] [place] [address] 12/18/2023 7:30 AM EXTRUSION SUPERVISOR Appointment Department of Laboratory Medicine and Pathology, [facility] in [address] [phone] Yvrose Gomes P.A.-Krystian., M.S. [address] [place] [phone] 12/18/2023 11:30 AM EXTRUSION SUPERVISOR Office Visit Division of Hematology in [address] [phone] Yvrose Gomes P.A.-C., M.S. [address] [place] [phone] documented as of this encounter Visit Diagnoses Not on filedocumented in this encounter Additional Health Concerns Assessment Noted Time PHQ-9 Depression Total Score: 7 06/28/19 12 2:05 PM CDT documented as of this encounter
== END 2023-09-27 10:18 | disposition home or self-care (01) ==
PROVIDERS: PCP Internal Medicine; Visit Provider Internal Medicine
DX: C91.10 Chronic lymphocytic leukemia of B-cell type not having achieved remission (principal); E03.9 Hypothyroidism, unspecified; E61.1 Iron deficiency
CPT/HCPCS: 83540; 83550; 84443

== ENCOUNTER 2023-11-20 14:23 | Outpatient (CLI) | payer MEDICARE, BC, SELFPAY ==
--- OUTSIDE RECORDS SUMMARY | 2023-11-20 14:25 | XMS_ITS | Encounter Summary ---
Author Organization [facility] Address [address], [place] [address] Care Team Providers Care Pinking Sewing Machine Operator Name Role Phone Karen Montes De Oca MD Primary Care Provider [phone] Encounter Details Date Type Department Care Team (Late st Contact Info) Description 03/14/2011 Orders Only [facility] [address] [place] [address] John Verde MD [address] [place] [address] Social History Tobacco Use Types Packs/Day Years Used Date Smoking Tobacco: Never Assessed Sex and Gender Information Value Date Recorded Sex Assigned at Not on file Gender Identity Not on file Sexual Orientation Not on file documented as of this encounter Plan of Treatment Not on file documented as of this encounter Visit Diagnoses Not on filedocumented in this encounter Care Teams Pinking Sewing Machine Operator Relationship Specialty Start Date End Date Karen Montes De Oca MD [address], [place] [address] PCP - General Emergency Medicine 12/14/22 documented as of this encounter
--- OUTSIDE RECORDS SUMMARY | 2023-11-20 14:25 | XMS_ITS | Clinical Summary ---
Author Organization [facility] Address [address], [place] [address] Care Team Providers Care Shrinking Machine Operator Name Role Phone Karen Montes De Oca MD Primary Care Provider [phone] Source Comments You are receiving this document as you are listed as the primary care provider,follow-up provider, or the patient has been referred to you for consultation.This is in compliance with the Medicare and[facility] EHR Incentive Program,which states Providers who transition their patient to another setting of careor provider of care or refers their patient to another provider of care shouldprovide summary care record for each transition of care or referral. [facility] Allergies No known active allergies Medications No known medications Social History Tobacco Use Types Packs/Day Years [...] history exists DTaP/Tdap/Td (3 - Tdap) 03/29/2028 03/29/19 19, 10/27/2008, 07/20/1983 RSV (1 - 1-dose 75+ series) 2028 Pneumococcal 65+ Yrs Completed 08/26/2021, 08/21/19 20 Zoster/Shingles Completed 03/12/2023, 12/08, 08/04/2014 HepA Aged [...] on patient's age to complete this topic Infant RSV Aged Out No longer eligi ble based on patient's age to complete this topic MCV4 Aged Out No longer eligi ble based on patient's age to complete this topic Care Teams Shrinking Machine Operator Relationship Specialty Start Date End Date Karen Montes De Oca MD [address] [place] [address] PCP - General Emergency Medicine 12/14/22
--- OUTSIDE RECORDS SUMMARY | 2023-11-20 14:25 | XMS_ITS | Encounter Summary ---
Author Organization [facility] Address [address] [address] Care Team Providers Care It Instructor Name Role Phone Karen Montes De Oca MD Primary Care Provider [phone] Encounter Details Date Type Department Care Team (Late st Contact Info) Description 02/14/2011 Orders Only [facility] [address] [place] [address] John Verde MD [address] [place] [address] Carpal tunnel syndrome Social History Tobacco Use [...] syndrome documented in this encounter Care Teams It Instructor Relationship Specialty Start Date End Date Karen Montes De Oca MD [address] [place] [address] PCP - General Emergency Medicine 12/14/22 documented as of this encounter
--- OUTSIDE RECORDS SUMMARY | 2023-11-20 14:26 | XMS_ITS | Clinical Summary ---
Author Organization 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 Name Role Phone Unknown, Md Unavailable Unavailable Cameron Montgomery Primary Care Provider Unavailab Lianet Sherwood MD Unavailable [phone] Allergies Active Allergy Reactions Criticality Noted Date [...] smear of cervix 02/28/2007 Overview (03/03/2021): Cyro [id number]'s Brachial plexus lesions 02/28/2007 Degeneration of cervical intervertebral disc Immunizations Name Administration Dates Next Due Influenza High Dose (Fluzone Quadrivalent PF) 11/05/2020 Pneumococcal PCV13 08/21/2019 SPIKEVAX (Moderna) 12+ Yrs M onovalent COVID 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) 12/03/2020,05/05/2020,04/07/2020 Family History Medical History Relation Comments High Cholesterol Other Relation Status Comments Other Social History Tobacco Use Types Packs/Day Years Used Date Smoking Tobacco: Never Smokeless Tobacco: Never Sex and Gender Information Value Date Recorded Sex Assigned at Female 12/14/2020 10:07 AM YARN REWINDER Gender Identity Female 12/14/2020 10:07 AM YARN REWINDER Sexual Orientation Not on file Plan of Treatment Health Maintenance Due Date Last Done Comments Colonoscopy 1955 Hepatitis C Screening 1955 Mammogram Screening 1955 Medicare Wellness Visit 1955 Osteoporosis Screening 1955 Depression Assessment (PHQ-2) 1954 Yearly Review of HCD 09/30/2003 Zoster Vaccine (2 of 3) 2014 08/04/2014 Pneumococcal 65+ (2 of 2 - P PSV23 or PCV20) 08/20/2020 08/21/2019 COVID-19 Vaccine (5 - 2023-2 5 season) 2023 05/08/2021, 12/03/2020, 05/05/2020, Additional history exists Influenza Vaccine (#1) 2023 , 11/23/2018, 11/23/2018, Additional history exists Adult Tetanus Booster 03/29/2028 03/29/2018 , 10/27/2008, 02/06/1998, Additional history exists RSV Vaccines (1 - 1-dose 75+ series) 2028 Care Teams Typo Machine Operator Relationship Specialty Start Date End Date Unknown, NO ADDRESS/PHONE/FAX AFFILIATED PCP - Primary Care Clinic 11/30/20 Cameron Montgomery PCP - General 06/25/21 Lianet Mayo MD [address] [place] [address] Neurology 02/24/22
--- OUTSIDE RECORDS SUMMARY | 2023-11-20 14:26 | XMS_ITS | Continuity of Care Document ---
Author Organization 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, [address] [place] [address], [address], tel:[phone] No Information No Information Office/outpat ient visit,[facility], [facility], [address] [place] [address], [address], tel:[phone] [facility] neck pain (chief complaint) No Information Mehbod Amir. [facility], [address], [place], [place], [id number], [place]. tel:[phone] Referring Provider: Abdirashid Jones [facility] [address] [facility], [place], [address] . tel:[phone] [facility], [address] [address], [place], [address], [place] tel:[phone] [facility] No Information [address] [facility], [address], [facility] [address], [place], [place], [id number], [place]. tel:[phone] Referring Provider: Renetta Christianson, [employer] [address] [facility], [place], [address] . tel:[phone] Family History Family Member Type Diagnosis Age At Onset Father Problem (finding) Arthritis Sister Problem (finding) malignant neoplasm of l lloyd Father Problem (finding) Heart disease Problem (finding) Family history of Low b ack problems Mother Problem (finding) Arthritis Problem (finding) Family history of osteo porosis Payers Payer name Insurance type Covered alliance party ID Moriah suggs(s) [facility] [id number] Social History Type Description Quantity Date Captured [...]
--- OUTSIDE RECORDS SUMMARY | 2023-11-20 14:26 | XMS_ITS | Continuity of Care Document ---
Author Organization [facility] Address [address] [place] [address] Phone Care Team Providers Care Hand Packer Name Role Phone Kp Zabala MD Unavailable [...] [facility], [address], [place], [address], tel:[phone] No Information 3 Vj Goodrich. [facility] [address], [place], [address], [place]. tel:[phone] Family History Family Member Type Diagnosis Age At Onset No Information Payers Payer name Insurance type Covered democrat ID Authoriza tion(s) No Information Social History [...]
--- OUTSIDE RECORDS SUMMARY | 2023-11-20 14:26 | XMS_ITS | Continuity of Care Document ---
Author Organization SAVANAH Perez Address [address] [facility] [address] [place] [address] Phone Care Team Providers Care Hedis Nurse Name Role Phone Jaren Booker MD Unavailable Unavailable Allergies, Adverse Reactions, Alerts Substance Reaction Status Criticality No Known Allergies Active No Inform ation Medications Medication Instructions Dosage Effective Dates (start - stop) Status Comments gabapentin 300 mg capsule take 1 capsule by oral route 2 times every day 300 MG - Active PROBIOTIC (unknown strength) Not Available - Active levothyroxine 112 mcg capsule take 1 capsule by oral route every day 112 MCG - Active TEGRETOL (unknown strength) take 1 tablet by oral route every 12 hours Not Available - Active multivitamin tablet - Active OMEGA-3 ORAL - Active B Complex w-Vit C 18 mg-10 mg-45 mg-5 mg-250 mg tablet - Active trazodone 100 mg tablet take 1.5 tablet by oral route every day at bedtime - Active melatonin 5 mg capsule take 1 capsule by oral route every bedtime 1 capsule - Active rosuvastatin 5 mg tablet take 1 tablet by oral route every day 5 MG - Active STOOL SOFTENER (unknown strength) take 1 capsule by oral route every day at bedtime as needed Not Available - Active ESTRACE (unknown strength) take 1 tablet by oral route every day Not Available - Active Fioricet 50 mg-300 mg-40 mg capsule take 1 - 2 capsule by oral route every 4 hours as needed not to exceed 6 capsules per 24hrs 1.00-2.00 capsule - Active eletriptan 40 mg tablet take 1 tablet by oral route ; if headache returns, may repeat dose after 2 hours. No more than twodoses within a 24-hour period.. 40 MG - Active IMPOYZ (unknown strength) apply by topical route 2 times every day a thin layer to the affected area(s) ; rub in gently and completely Not Available - Active Procedures Procedure Date Chemodenervation of muscles facial, trig eminal,???fo Botox 1 Vial/100 Units Greater Occipital Block Ultrason Guidan Needle Bx-rad 3 Inj Anes Agent Greater Occipt 3 Ultrason Guidan Needle Bx-rad 3 Inj Anes Agent Greater Occipt 3 Change Control for Modifier(s) 23 Change Control for Diagnosis(s) 023 Verified No Separate Anesthesia 023 Chemodenervation of muscles facial, trig eminal,???fo Botox 1 Vial/100 Units Est Pt Eval Telehealth Psychiatric Diagnostic Evaluation Teleph one Only Est Pt Eval Telehealth Greater Occipital Block Ultrason Guidan Needle Bx-rad 3 Inj Anes Agent Greater Occipt 3 Ultrason Guidan Needle Bx-rad 3 Inj Anes Agent Greater Occipt 3 Change Control for Modifier(s) 23 Verified No Separate Anesthesia 023 Est Pt Eval 25 Min Telehealth 3 Chemodenervation of muscles facial, trig eminal,???fo Botox 1 Vial/100 Units Est Pt Eval 25 Min Telehealth 3 No Show Visit Fee Inj Anes Facet Jt; Cerv/thor-2nd Level A Inj Anes Facet Jt; Cerv/thor-1st Level A Inj Anes Facet Jt; Cerv/thor-1st Level A Inj Anes Facet Jt; Cerv/thor-2nd Level A Change Control for Modifier(s) 23 CC Control For Rem/Void Of Mutually Excl usive Proc No Show Visit Fee Verified No Separate Anesthesia 023 Inj Anes Facet Jt; Cerv/thor-1st Level A Inj Anes Facet Jt; Cerv/thor-2nd Level A Inj Anes Facet Jt; Cerv/thor-2nd Level A Est Pt Eval 25 Min Telehealth 3 Inject, Spine, Cerv/Thor, Epi/subarc w/i mg Guid Inject, Spine, Cerv/Thor, Epi/subarc w/i mg Guid Verified No Separate Anesthesia 023 New Pt Eval 45 Min Advance Directives Directive Yes / No Effective Date File Name Other Directive No N/A N/A WARNING:The information contained in this section is historical and is provided for information only and does not constitute a legal document or any assurance that the information is still accurate. Please verify the information with the latif of the legal document before using it for clinical purposes. Encounters Encounter Description Practice Location Reason(s) For Visit Diagnoses Date Provider Providers Copied on Encounter SAVANAH Perez, [address], [id number], tel:[phone] [facility] headache (chief complaint) Migraine, unsp, not intractable, without status migrainosusMigrain e, unsp, not intractable, without status migrainosus 4 Ade Eastman. [address], [id number], [place]. tel:[phone] Referring Provider: Cameron Montgomery, [address] [place], [address]. tel:[phone] SAVANAH Perez, [address] [facility] [address], [place], [id number], tel:[phone] [facility] [place] No Information 3 Dorys Torrez. [address] [facility] [address], [address], [place]. tel:[phone] Referring Provider: Cameron Montgomery, [address] [place], [address]. tel:[phone] [facility], [address], [place], [address], [place] tel:[phone] [facility] [place] Occipital neuralgiaNeuralgia and neuritis, unspecifiedOccipit al neuralgiaNeuralgia and neuritis, unspecified 3 [facility]. [address], [place], [place], [address], [place]. tel:[phone] Referring Provider: Shan Alvardao, [address], [place], [address]. tel:[phone] [facility], [facility], [address], [place], [address], [place] tel:[phone] [facility] [place] No Information 3 Dorys Torrez. [address], [place], [address], [place]. tel:[phone] Referring Provider: Shan Alvarado, [address], [place], [address]. tel:[phone] [facility], [facility], [address], [place], [place], [address], [place] tel:[phone] [facility] headache (chief complaint) MigraineMigraine, unsp, not intractable, without status migrainosus 3 Ade Eastman. [address], [place], [place], [address], [place]. tel:[phone] Referring Provider: Cameron Montgomery, [address] [place], [address]. tel:[phone] Est Pt Eval Telehealth [facility], [facility], [address], [place], [place], [address], [place] tel:[phone] [facility] Migraines (chief complaint) Postlaminectomy syndrome, not elsewhere classifiedMigraine CervicalgiaBody mass index (BMI) 24.0-24.9, adult 3 Ketola Comanche. [address], [facility] [address], [place], [address], [place]. tel:[phone] Referring Provider: Cameron Montgomery, [address] [place] [address], [address]. tel:[phone] Psychiatric Diagnostic Evaluation Telephone Only JANEY Perez, [address] [facility], [place], [place], [address], [place] tel:[phone] [facility] Pain disorder with related psychological factors 3 Benigno Kearney. [address] [facility] [address], [place], [address], [place]. tel:[phone] Referring Provider: Cameron Montgomery, [address] [place] [address], [address]. tel:[phone] Est Pt Eval Telehealth Chris [facility], [address] [facility], [place], [place], [address], [place] tel:[phone] [facility] head pain (chief complaint) Postlaminectomy syndrome, not elsewhere classifiedCervical giaMigraineBody mass index (BMI) 24.0-24.9, adult 3 Ketola Comanche. [address], [facility] [address], [place], [address], [place]. tel:[phone] Referring Provider: Cameron Montgomery, [address] [place] [address], [address]. tel:[phone] JANEY Perez, [address] [facility] [address], [place], [place], [address], [place] tel:[phone] [facility] No Information 3 Dorys Torrez. [address], [place], [address], [place]. tel:[phone] Referring Provider: Cameron Montgomery, [address] [place], [address]. tel:[phone] [facility], [address], [place], [address], [place] tel:[phone] [facility] bilateral neck pain (chief complaint) MigraineNeuralgia and neuritis, unspecifiedRadicul opathy, cervical regionPostlaminect diandra syndrome, not elsewhere classifiedMigraine , unsp, not intractable, without status migrainosusNeuralg ia and neuritis, unspecified 3 [facility]. [address], [place], [place], [id number], [place]. tel:[phone] Referring Provider: Lissy Huynh , [address], [place], [address]. tel:[phone] Chris [facility], [address], [place], [place], [address], [place] tel:[phone] [facility] No Information 3 Dorys Torrez. [address], [place], [address], [place]. tel:[phone] Referring Provider: Shan Saul S, [address], [place], [address]. tel:[phone] Est Pt Eval 25 Min Telehealth Chris, [facility], [address], [place], [place], [address], [place] tel:[phone] [facility] CervicalgiaCervico genic headacheMigrainePo stlaminectomy syndrome, not elsewhere classified 3 Bronson Zamorano. [address] , [facility] [address], [place], [address], [place]. tel:[phone] Referring Provider: Cameron Montgomery, [address] [place] [address], [address]. tel:[phone] Chris [facility], [address] [facility] [address], [place], [place], [address], [place] tel:[phone] [facility] headache (chief complaint) MigraineMigraine, unsp, not intractable, without status migrainosus 3 Ade Eastman. [address], [id number], [place]. tel:[phone] Referring Provider: Cameron Montgomery, [address] [place] [address], [address]. tel:[phone] Est Pt Eval 25 Min Telehealth Chris [facility], [address] [facility] [address], [place], [address], [place] tel:[phone] [facility] right neck pain (chief complaint) CervicalgiaNeuralg ia and neuritis, unspecifiedPostlam inectomy syndrome, not elsewhere classifiedCervicog enic headacheMigraineBo dy mass index (BMI) 24.0-24.9, adult 3 Ketola Comanche. [address], [id number], [place]. tel:[phone] Referring Provider: Cameron Montgomery, [address] [place] [address], [address]. tel:[phone] Chris [facility], [address] [facility] [address], [place], [address], [place] tel:[phone] [facility] No Information 3 Ketola Katie. [address] [facility] [address], [place], [address], [place]. tel:[phone] Referring Provider: Cameron Montgomery, [address] [place], [address]. tel:[phone] [facility], [address], [place], [address], [place] tel:[phone] [facility] bilateral neck pain (chief complaint) Spondylosis w/o myelopathy or radiculopathy, cervical regionSpondylosis w/o myelopathy or radiculopathy, cervical region Apr-0 3 [facility]. [address], [place], [place], [address], [place]. tel:[phone] Referring Provider: Ivania Georges MD, [address] [place] [address], [address]. tel:[phone] Chris, [facility], [address], [place], [place], [address], [place] tel:[phone] [facility] No Information 3 Dorys Torrez. [address], [place], [address], [place]. tel:[phone] Referring Provider: Cameron Montgomery, [address] [facility], [address]. tel:[phone] [facility], [address], [place], [place], [address], [place] tel:[phone] [facility] No Information 0 3 Dorys Torrez. [address], [place], [address], [place]. tel:[phone] Referring Provider: Shan Alvarado, [address], [place], [address]. tel:[phone] [facility], [address], [place], [place], [address], [place] tel:[phone] [facility] No Information 3 Dorys Torrez. [address], [place], [address], [place]. tel:[phone] Referring Provider: Shan Alvarado, [address], [place], [address]. tel:[phone] Est Pt Eval [facility] [address], [place], [place], [address], [place] tel:[phone] [facility] headache (chief complaint) Postlaminectomy syndrome, not elsewhere classifiedNeuralgi a and neuritis, unspecifiedCervica lgiaCervicogenic headacheBody mass index (BMI) 23.0-23.9, adultMigraine 3 Ketola Katie. [address], [address], [place], [place], [address], [place]. tel:[phone] Referring Provider: Cameron Montgomery, [address] [place], [address]. tel:[phone] [facility], [address], [place], [address], [place] tel:[phone] [facility] headache (chief complaint) Radiculopathy, cervical regionRadiculopath y, cervical region 3 [facility]. [address], [place], [place], [address], [place]. tel:[phone] Referring Provider: Ivania Georges MD, [address] [facility], [place], [address]. tel:[phone] Chris [facility], [address], [place], [place], [address], [place] tel:[phone] [facility] No Information 3 Lino Yuan. [address], [place], [address], [place]. tel:[phone] Referring Provider: Cameron Montgomery, [address] [place], [address]. tel:[phone] [facility], [address] [facility] [address], [place], [place], [address], [place] tel:[phone] [facility] [place] No Information 3 Lino Yuan. [address] [facility] [address], [address], [place]. tel:[phone] Referring Provider: Lissy Huynh , [address] [facility] [address] [facility] [address], [address]. tel:[phone] New Pt Eval 45 Min [facility], [address] [facility] [address], [place], [address], [place] tel:[phone] [facility] Headache (chief complaint) Cervicogenic headacheCervicalgi aPostlaminectomy syndrome, not elsewhere classifiedNeuralgi a and neuritis, unspecifiedBody mass index (BMI) 24.0-24.9, adult 3 Ade Eastman. [address] [facility] [address], [place], [address], [place]. tel:[phone] Referring Provider: Jaren Booker, [address] [facility] [address], [place], [address] . tel:[phone] Family History Family Member Type Diagnosis Age At Onset No Information Payers Payer name Insurance type Covered democrat ID Moriah suggs(s) [facility] Medicare 16 [id number] Social History Type Description Quantity Date Captured Comments Alcohol Use Details No Caffeine Use Details Unknown Tobacco Use Status Non-smoker Smoking Status Never smoker Non-Smoking Tobacco Use Details : No Details Available : No Details Available Sex Female Vital Signs Date / Time: Height Weight BMI Pulse Rate Blood Pressure Temperature Respiratory Rate Body Surface Area Head Circumference Head Circ. Percentile Wt./Quinn. Percentile BMI percentile Pulse Ox Inhaled Ox 12:02 PM 62.00 in 59.511 kg (131.20 lbs) 24.0 0 kg/m eter (2) 1.61 meter(2) Chief Complaint And Reason For Visit From encounter dated '03/03/2023 13:45'. headache (chief complaint). Description: It occurs intermittently. The problem is unchanged. Reason For Referral Reason For Referral No Information Plan Of Treatment Date Type Action Status Goal Lifestyle education regardin g diet completed Goal Lifestyle education regardin g diet completed Goal Lifestyle education regardin g diet completed Goal Lifestyle education regardin g diet completed Goal Lifestyle education regardin g diet completed Goal Lifestyle education regardin g diet completed Referral Referred To: Physical Therapy Ordered: Referrals: Physical Therapy. Evaluate and treat ordered Referral Ordered: Referrals: Behavioral Health. Evaluate and treat ordered History Of Present Illness Encounter Date Complaint History Of Prese nt Illness headache It occurs interm ittently. The problem is unchanged. headache It occurs interm ittently. The problem is improving. Location is temporal left, temporal right and IRVIN eyes. Relieving factors include botox. Migraines Patient reports migraines that she describes as dull and aching. Botox, Occipital nerve block, and medications alleviate the pain. Worsened by nothing. head pain The symptoms are reported as being moderate. The symptoms occur constantly. Pain goes from eyes down to forehead into the base of skull. She also has some pain in her neck. bilateral neck pain down to shol ders, right worse than left headache Severity: mild. It occurs intermittently. The problem is worse. Location is frontal left, ocular left and ocular right. right neck pain The symptoms are reported as being severe. The symptoms occur constantly. Right side of Neck and into base of head with frequent migraines once a week. bilateral neck pain The symptoms are reported as being severe. The symptoms occur constantly. stabbing, aching headache The patient desc ribes it as ache. Symptom is aggravated by computer use. Relieving factors include pain medication. headache Severity: severe . It occurs constantly. The problem is worse. Location is entire head and frontal left. There is radiation to neck. The patient describes it as blinding, sharp and aching. Symptom is aggravated by bright lights and noise. Headache Location is IRVIN trigeminal, sides and back. Relieving factors include heat. Pertinent negatives include fever, loss of consciousness, nausea and vomiting. Functional Status Date Functional Assessmen t No Information Instructions Date Instruction Additional Infor angelica - Follow up in the clinic Relate d to Occipital neuralgia - Continue medications as prescr ibed Related to Cervicalgia - Pre Authorization for Spinal Cord Stimulator trial pending completion of physical therapy. Implant team will reach out to schedule once approved- Schedule physical therapy eval for implant- Follow-up as needed; Telehealth [place] Related to Postlaminectomy syndrome, not elsewhere classified - Keep Botox injecti ons on 09/30- Keep repeat Occipital Nerve Block on 10/05 Related to Migraine Lifestyle education regarding di et Related to Body mass index [BMI] 24.0-24.9, adult - Pre Authorization for Spinal Cord Stimulator trial pending completion of physical therapy and behavioral health evals. Implant team will reach out to schedule once approved- Schedule physical therapy eval for implant- Schedule Behavioral Health eval for implant- Can schedule this via Telehealth- Follow-up as needed; Telehealth [place] Related to Postlaminectomy syndrome, not elsewhere classified - Continue medications as prescr ibed Related to Cervicalgia - Schedule repeat Oc cipital Nerve Block upon insurance approval, ordered today- Schedule Botox injections upon insurance approval, ordered today Related to Migraine Lifestyle education regarding di et Related to Body mass index [BMI] 24.0-24.9, adult - Prior authorizatio n spinal cord stimulator- Follow up in the clinic Related to Migraine - Consider Spinal Co rd Stimulator trial in the future Visit [email or web address].[email or web address] => treatments => neuromodulation => spinal cord stimulation. Related to Postlaminectomy syndrome, not elsewhere classified Same plan of care as statement for above diagnosis, no changes Related to Cervicogenic headache - Order occipital ne rve block today- Continue medications as prescribed- Follow up as needed, telehealth ok Related to Cervicalgia - Same Related to Migra ine Same plan of care as statement for above diagnosis, no changes Related to Cervicogenic headache - Consider Spinal Co rd Stimulator trial in the futureVisit www[employer] => treatments => neuromodulation => spinal cord stimulation.- Follow up as needed, telehealth ok Related to Cervicalgia Same plan of care as statement for above diagnosis, no changes. Related to Postlaminectomy syndrome, not elsewhere classified Same plan of care as statement for above diagnosis, no changes Related to Neuralgia and neuritis, unspecified - Schedule Botox inj ections upon insurance approval, ordered today Related to Migraine Lifestyle education regarding di et Related to Body mass index [BMI] 24.0-24.9, adult Lifestyle education regarding di et Related to Body mass index [BMI] 24.0-24.9, adult Lifestyle education regarding di et Related to Body mass index [BMI] 24.0-24.9, adult Follow up for CMBB-C in 1-2 weeks if pain relief of more than 80%Provide information about Spinal cord stimulation History of ACDF at C5/6 in the past. Consider Spinal cord stimulation if no pain relief after CMBB Related to Spondylosis w/o myelopathy or radiculopathy, cervical region - Schedule Bilateral Cervical Medial Branch Blocks- Initial at the C 2, 3, 4, and 5 levels upon insurance approval, ordered today- Consider Cervical Radiofrequency Ablation if the Branch Blocks provide you with at least 80% pain relief.*If you would like conscious sedation, please make sure to bring a boom truck driver with you on the day of your procedure. No food 8 hrs prior to procedure.*- Continue taking Fioricet as prescribed- Continue taking Tegretol as prescribed- Follow up after returning from vacation; Telehealth [place] Related to Cervicalgia Same plan of care as statement for above diagnosis, no changes Related to Cervicogenic headache Same plan of care as statement for above diagnosis, no changes Related to Neuralgia and neuritis, unspecified Same plan of care as statement for above diagnosis, no changes. Related to Postlaminectomy syndrome, not elsewhere classified - Prescribe Ubrelvy 50mg- Take one tablet at the onset of headache, if no pain relief is achieved after two hours, you can take an additional tablet. Related to Migraine Lifestyle education regarding di et Related to Body mass index [BMI] 23.0-23.9, adult -Repeat in 3-4 weeks if pain returns-Follow up in the clinic to discuss results of today's injection Related to Radiculopathy, cervical region Same plan of care as statement for above diagnosis, no changes Related to Cervicalgia Same plan of care as statement for above diagnosis, no changes Related to Neuralgia and neuritis, unspecified Same plan of care as statement for above diagnosis, no changes Related to Cervicogenic headache -Order cervical MRI at [facility]-Requested medical records from [facility]-Requested medical records from [facility]-Order cervical epidural steroid injection-Pending results from [facility], consider cervical medial branch block initial-Follow up in one month with MARIELENA Related to Postlaminectomy syndrome, not elsewhere classified Exercise promotion: strength tra ining Related to Body mass index [BMI] 24.0-24.9, adult Assessments Type Assessment Date assessment Migraine, unsp, not intractable, without status migrainosus Patient Care Teams Name Effective Dates (start - stop) Status Members No Information
--- OUTSIDE RECORDS SUMMARY | 2023-11-20 14:26 | XMS_ITS ---
Author Organization [facility] Address [address] [place] [address] Care Team Providers Care Transcription Name Role Phone Unavailable Unavailable Unavailable Surgery Details Not on file Complications Check Surgery Details section. Procedure Estimated Blood Loss Check Surgery Details section. Procedure Findings Check Surgery Details section. Procedure Specimens Taken Check Surgery Details section.
--- OUTSIDE RECORDS SUMMARY | 2023-11-20 14:26 | XMS_ITS | Clinical Summary ---
Author Organization [employer] [facility] [employer] [facility] Address [place], [place] [address] Care Team Providers Care Flocculator Operator Name Role Phone Cameron Montgomery MD Primary Care Provider [phone] Allergies No known active allergies Medications Medication [...] by mouth. 0 05/17/2012 Active Vit C-Vit A-Ukusgp-Tpneqwob (OCUVITE LUTEIN) cap Take 1 capsule by [...] Coccydynia 12/14/2011 Screen for colon cancer 12/07/2010 Overview (12/07/2010): Colonoscopy 12/2010 normal repeat in 10 years Chronic pain syndrome 08/27/2010 Lichen sclerosus et atrophicus 07/06/2010 Herpetic gingivostomatitis 06/06/2007 Unspecified hypothyroidism 02/28/2007 Degeneration of cervical intervertebral disc Brachial plexus lesions 02/28/2007 Mucous polyp of cervix 02/28/2007 Abnormal glandular Papanicolaou smear of cervix 02/28/2007 Overview (02/28/2007): Cecilia [id number]'s Resolved Problems Problem Noted Date Diagnosed Date [...] History Relation Name Comments Heart Disease Father [place] Psychiatric illness Maternal Grandfather dementia Hyperlipidemia Mother [...] 08/25/2022 08/25/2021 COVID-19 vaccine series ( season) 2023 05/08/2021, 12/03/2020, 05/05/2020, Additional history exists Influenza for age 65+ 10/08/2023 11/05/2020 , 11/05/2020, 11/23/2018, Additional history exists Tetanus booster 03/29/2028 03/29/2018, 10/08, 02/06/1998, Additional history exists Tdap Completed 03/29/2018, 10/27/2008 Procedures Procedure Name Priority Date/Time Associated Diagnosis Comments LIPID PANEL W REFLEX MEASURED LDL Routine 01/10/2013 11:45 AM PATIENT CONSUMER MARKETER Screening, lipid XR MAMMO BILAT SCREEN FFDM (IA) Routine 01/10/2013 10:06 AM PATIENT CONSUMER MARKETER Other screening mammogram SCAN-BONE DENSITOMETRY DEXA 12/06/2010 12:00 AM CDT from Last 3 Months or Most Recently Relevant to Health Maintenance Results * (ABNORMAL) LIPID PANEL W REFLEX MEASURED LDL (01/10/2013 11:45 AM PATIENT CONSUMER MARKETER) CHOLESTEROL,TOTAL 283(H) 100 - 199 mg/dL 01/10/2013 12:34 PM [facility] TRIGLYCERIDES 191(H) <150 mg/dL 01/10/2013 12:34 PM [facility] HDL CHOLESTEROL 67 >40 mg/dL 3 12:34 PM [facility] NON-HDL CHOLESTEROL 216(H) <145 mg/dl 01/10/2013 12:34 PM [facility] CHOL/HDL RATIO 4.22 <4.50 01/10/2013 12:34 PM [facility] LDL CHOLESTEROL 178(H) <=130 mg/dL 01/10/2013 12:34 PM PATIENT CONSUMER MARKETER [facility] PATIENT STATUS FASTING 01/10/2013 12:34 PM PATIENT CONSUMER MARKETER [facility] Blood specimen (specimen) BLOOD SPECIMEN / Unknown Venipuncture / Unknown 01/10/2013 11:45 AM PATIENT CONSUMER MARKETER 01/10/2013 11:45 AM PATIENT CONSUMER MARKETER Agueda Clark NP CHEMISTRY Performing Organization Address City/State/[facility] Co de Phone Number [facility] [address] [place] [address] * XR MAMMO BILAT SCREEN FFDM (01/10/2013 10:06 AM PATIENT CONSUMER MARKETER) Anatomical Region Laterality Modality BREASTS, Breast Left, Breast Right Bilateral Mammography Impressions 01/10/2013 12:23 PM PATIENT CONSUMER MARKETER ??There is no radiographic evidence for malignancy. ??Recommend annual mammograms. A lay language report of this examination will be provided to the patient. MAMMOGRAM ASSESSMENT: ??ACR 1 Negative Narrative 01/10/2013 12:23 PM PATIENT CONSUMER MARKETER XR MAMMO BILAT SCREEN FFDM [G0202.0] CLINICAL HISTORY: ??This is an asymptomatic 57 y.o. patient. INDICATION FOR EXAM: Mammogram Screening. TECHNIQUE: CC & MLO views were obtained. ??This digital study was evaluated with the assistance of Computer-Aided Detection. ?? COMPARISON FILM: Yes 01/05/11 [facility] 10/27/08 [facility] FINDINGS: ??Mammographically, the breast tissue has scattered fibroglandular densities (approximately 25% - 50% glandular). ??There are no dominant masses, suspicious micro calcifications or areas of architectural distortion. Procedure Note BanderaJose Alejandro Gottlieb MD - 01/10/2013 XR MAMMO BILAT SCREEN FFDM [G0202.0] CLINICAL HISTORY: This is an asymptomatic 57 y.o. patient. INDICATION FOR EXAM: Mammogram Screening. TECHNIQUE: CC & MLO views were obtained. This digital study was evaluatedwith the assistance of Computer-Aided Detection. COMPARISON FILM: Yes 01/05/11 [facility] 10/27/08 [facility] FINDINGS: Mammographically, the breast tissue has scatteredfibroglandular densities (approximately 25% - 50% glandular). There areno dominant masses, suspicious micro calcifications or areas ofarchitectural distortion. IMPRESSION: There is no radiographic evidence for malignancy. Recommendannual mammograms. A lay language report of this examination will be provided to the patient. MAMMOGRAM ASSESSMENT: ACR 1 Negative Renetta Izabel Detert DO MAMMO * SCAN-BONE DENSITOMETRY DEXA (12/06/2010 12:00 AM CDT) Anatomical Region Laterality Modality Other Narrative Procedure Note Scanner - 12/06/2010 12:00 AM CDT Scanner OTHER from Last 3 Months or Most Recently Relevant to Health Maintenance Care Teams Flocculator Operator Relationship Specialty Start Date End Date Cameron Montgomery MD PCP - General Family Practice 09/27/22
--- OUTSIDE RECORDS SUMMARY | 2023-11-20 14:26 | XMS_ITS | Referral Summary ---
Author Organization [facility] Address [address] [place] [address] Care Team Providers Care Monotype Mechanic Name Role Phone Unavailable Primary Care Provider Unavailabl e Source Comments Patient records contain information from all sites at [facility]. For routine questions regarding patient records, call [phone] during business hours, M-F 8:00 AM - 5:00 PM Central Time. Record requests for emergency care only can be directed to [phone] at any time.[facility] Encounters Date Type Department Care Team Description 11/13/2023 Clinical Communication Division of Hematology in [place], [place] [address] [place] [address] Madisyn Farooq M.D. Blisters on skin from Last 3 Months Allergies Active Allergy Reactions Criticality Noted Date Comments Lactose GI intolerance Low 06/26/2023 Just INTOLERANCE Medications rosuvastatin (CRESTOR) 5 mg tablet Take 1 tablet by mouth at bedtime. 1 Active levothyroxine (SYNTHROID, LEVOTHROID) 112 mcg tablet Take 1 tablet by mouth daily. 1 Active clobetasoL (TEMOVATE) 0.05 % cream APPLY CREAM TOPICALLY TO AFFECTED AREA EVERY DAY AT BEDTIME 4 TIMES A WEEK THEN ALTERNATE NIGHTS FOR 4 WEEKS THEN 2 NIGHTS WEEKLY Active azelastine (ASTEPRO) 205.5 mcg/spray (0.15 %) nasal spray 3 Active calcium carbonate 1,500 mg (600 mg calcium) tablet Take 2 tablets by mouth daily. 2 Active cholecalciferol (VITAMIN D3) 25 mcg (1,000 Unit) capsule Take 50 mcg by mouth daily. 3 Active diclofenac sodium (Voltaren Arthritis Pain) 1 % gel as needed. 3 Active eletriptan (RELPAX) 40 mg tablet TAKE 1 TABLET IF HEADACHE RETURNS, THE DOSE MAY BE REPEATED AFTER 2 HRS, BUT NO MORE THAN 2/WEEK 0 Active estradioL (ESTRACE) 0.1 mg/g (0.01%) vaginal cream APPLY A PEA SIZED AMOUNT TO URETHRA NIGHTLY FOR 2 WEEKS, THEN TWICE PER WEEK AFTER THAT FOR 6 WEEKS. Active gabapentin (NEURONTIN) 300 mg capsule Medrol Dose Pack scheduling ONLY. Active L. acidophilus/Bif id. animalis 31 billion cell capsule daily. Active magnesium oxide (MAG-OX) 400 mg (241.3 mg magnesium) tablet every evening. Activ e multivitamin tablet Take 1 tablet by mouth daily. 2 Active oxymetazoline (AFRIN) 0.05 % nasal spray 1 Active traZODone (DESYREL) 100 mg tablet Take 150 mg by mouth at bedtime. Active valACYclovir (VALTREX) 1000 mg tablet 1 Active vit C/E/Zn/coppr/justyn tein/zeaxan (OCUVITE LUTEIN AND ZEAXANTHIN ORAL) Take 1 capsule by mouth daily. 3 Active ketoconazole (NIZORAL) 2 % cream Apply 1 Application topically 2 (two) times a week. Apply to FEET (ATHLETES FEET) Active ciclopirox (LOPROX) 0.77 % cream Apply 1 Application topically every other day. Gently massage into affected areas and surrounding skin Active hydrocortisone- pramoxine (ANALPRAM-HC) 2.5-1 % rectal cream Insert 1 Application into the rectum 2 (two) times a week. Active propranoloL (INDERAL) 40 mg tablet Take 40 mg by mouth daily. 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 06/28/2023 Immunizations Name Administration Dates Next Due DTaP (Infanrix, Tripedia) 10/27/2008 H1N1 Inj Preservative Free 01/27/2009 HZV (ZOSTAVAX) 08/04/2014 Influenza TIV (IM) 10/26/2014, 3,11/09/2011,2010,10/27/2008,01/01/2007 Influenza high dose QV(65 ye ars or older) (PF) 11/24/2021,11/05/2020 Influenza, Injectable, Mdck, Preservative Free, Quadrivalent 12/06/2017 Influenza, Quadrivalent, Adj uvanted, Preservative Free 11/01/2022 Influenza, Seasonal, Injectable 10/27/19 15,01/10/2013,11/09/2011,2008 Influenza, Unspecified 11/05/2020,2018,10/12/2017,2008 PCV13 08/21/2019 PPSV23 08/26/2021 Td (Adult), adsorbed 07/20/1983 Td, (Adult) Unspecified 02/06/1998 Tdap 03/29/2018,10/27/2008 influenza trivalent high dos e (HD)(PF) 11/23/2018 influenza trivalent vaccine (6 months and older)(PF) 11/04/2010 influenza vaccine quad (FLUZONE/FLUARIX) (6 months and [...] your living situation today? I have a [facility] place to live 12/04/2022 Comments Unknown Sex and Gender Information Value Date Recorded Sex Assigned at Female 12/04/2022 10:03 AM CDT Legal Sex Female 12:43 PM MARKET DEVELOPMENT DIRECTOR Gender Identity Female 12/04/2022 10:03 AM CDT [...] (Latest Contact Info) Description 12/15/2023 10:15 AM MARKET DEVELOPMENT DIRECTOR Clinical Communication Virtual Review in [place], [place] [address] [place] [address] 12/26/2023 6:50 AM MARKET DEVELOPMENT DIRECTOR Appointment Department of Laboratory Medicine and Pathology, [facility], in [place], [place] [address] [place] [phone] Yvrose Gomes P.A.-C., M.S. [address] [place] [phone] 12/26/2023 9:30 AM MARKET DEVELOPMENT DIRECTOR Office Visit Division of Hematology in [place], [place] [address] [place] [phone] Yvrose Gomes P.A.-C., M.S. [address] [place] [phone] Insurance MEDICARE [facility]
--- OUTSIDE RECORDS SUMMARY | 2023-11-20 14:26 | XMS_ITS | Encounter Summary ---
Author Organization [facility] Address [address] [place] [address] Care Team Providers Care Prospect Manager Name Role Phone Unavailable Primary Care Provider Unavailabl e Reason for Visit * Reason Onset Date Comments Blisters on skin 11/13/2023 Encounter Details Date Type Department Care Team (Latest Contact Info) Description 11/13/2023 Clinical Communication Division of Hematology in [place], [place] [address] [place] [address] Madisyn Farooq M.D. [address] [place] [address] Blisters on skin Social History Tobacco Use Types Packs/Day Years [...] your living situation today? I have a [facility] place to live 12/04/2022 Comments Unknown Sex and Gender Information Value Date Recorded Sex Assigned at Female 12/04/2022 10:03 AM CDT Legal Sex Female 12:43 PM PHARMACY CARE COORDINATOR Gender Identity Female 12/04/2022 10:03 AM CDT Sexual Orientation Straight 12/04/2022 10 :03 AM CDT documented as of this encounter Miscellaneous Notes * Telephone Encounter - Emelia Rubio R.N. - 11/13/2023 3:09 PM CDT SUBJECTIVE CHIEF COMPLAINT / REASON FOR CALL Blisters on skin Information Discussed Returned the patient's phone call. She mentioned beginning a couple months she began noticing on her upper extremities some itchy, dry patches of skin that when she would scratch felt like a burning sensation. She also notes there is a slight redness on her hands as well. She has been hydrating well and applying moisturizer frequently to her upper extremities. She also describes some blister-type rash that occurs intermittently on her chin. Lastly she describes some lesions on or near her labia. She reports this has occurred previously and was given an ointment by her feed house supervisor to apply. She denied any B symptoms at this time. It was recommended she reach out to either her primary care provider or preferably her local feed house supervisor for evaluation of the skin issues. She is due for a full body skin evaluation as it has beenabout 1.5 years since her last derm evaluation by report. PLAN Disposition/Recommendation: recommended continue engagement in self-management activities Information/Education: patient/caller able to teach back Caller agreeable to plan of care: yes The following references were used: nursing clinical judgement and Yvrose Gomes P.A.-C., M.S 06/28/2023 documented in this encounter Plan of Treatment Upcoming Encounters Date Type Department Care Team (Latest Contact Info) Description 12/15/2023 10:15 AM PHARMACY CARE COORDINATOR Clinical Communication Virtual Review in [address] [phone] 12/26/2023 6:50 AM PHARMACY CARE COORDINATOR Appointment Department of Laboratory Medicine and Pathology, [facility], in [address] [phone] Yvrose Gomes P.A.-C., M.S. [address] [place] [phone] 12/26/2023 9:30 AM PHARMACY CARE COORDINATOR Office Visit Division of Hematology in [address] [phone] Yvrose Gomes P.A.-C., M.S. [address] [place] [phone] documented as of this encounter Visit Diagnoses Not on filedocumented in this encounter Additional Health Concerns Assessment Noted Time PHQ-9 Depression Total Score: 7 06/28/19 12 2:05 PM CDT documented as of this encounter
--- OUTSIDE RECORDS SUMMARY | 2023-11-20 14:26 | XMS_ITS | Referral Summary ---
Author Organization [facility] Address [address] [place] [address] Care Team Providers Care Electric Distribution Checker Name Role Phone Unknown, Md Unavailable Unavailable Cameron Montgomery Primary Care Provider Unavailab Lianet Sherwood MD Unavailable [phone] Allergies Active Allergy Reactions Criticality Noted Date [...] smear of cervix 02/28/2007 Overview (03/03/2021): Cyro [id number]'s Brachial plexus lesions 02/28/2007 Degeneration of cervical intervertebral disc Immunizations Name Administration Dates Next Due Influenza High Dose (Fluzone Quadrivalent PF) 11/05/2020 Pneumococcal PCV13 08/21/2019 SPIKEVAX (Moderna) 12+ Yrs M onovalent COVID Vaccine (dredgemaster) 12/03/2020,05/05/2020,04/07/2020 Social History Tobacco Use Types Packs/Day Years Used Date Smoking Tobacco: Never Smokeless Tobacco: Never Sex and Gender Information Value Date Recorded Sex Assigned at Female 12/14/2020 10:07 AM CAGE FIGHTER Gender Identity Female 12/14/2020 10:07 AM CAGE FIGHTER Sexual Orientation Not on file Plan of Treatment Not on file Care Teams Electric Distribution Checker Relationship Specialty Start Date End Date Unknown, NO ADDRESS/PHONE/FAX AFFILIATED PCP - Primary Care Clinic 11/30/20 Cameron Montgomery PCP - General 06/25/21 Lianet Mayo MD [address] [place] [address] Neurology 02/24/22
--- OUTSIDE RECORDS SUMMARY | 2023-11-20 14:26 | XMS_ITS | Clinical Summary ---
Author Organization [facility] Address [address] [place] [address] Care Team Providers Care Physical Plant Manager Name Role Phone Unavailable Primary Care Provider Unavailabl e Source Comments Patient records contain information from all sites at [facility]. For routine questions regarding patient records, call [phone] during business hours, M-F 8:00 AM - 5:00 PM Central Time. Record requests for emergency care only can be directed to [phone] at any time.[facility] Allergies Active Allergy Reactions Criticality Noted Date [...] 11/13/2023 Clinical Communication Division of Hematology in [place], [place] [address] [place] [address] Madisyn Farooq M.D. Blisters on skin from Last 3 Months Immunizations Name Administration [...] your living situation today? I have a [facility] place to live 12/04/2022 Comments Unknown Sex and Gender Information Value Date Recorded Sex Assigned at Female 12/04/2022 10:03 AM CDT Legal Sex Female 12:43 PM HEAD CLEANING PORTER Gender Identity Female 12/04/2022 10:03 AM CDT [...] (Latest Contact Info) Description 12/15/2023 10:15 AM HEAD CLEANING PORTER Clinical Communication Virtual Review in [place], [place] [address] [place] [address] 12/26/2023 6:50 AM HEAD CLEANING PORTER Appointment Department of Laboratory Medicine and Pathology, [facility], in [place], [place] [address] [place] [phone] Yvrose Gomes P.A.-C., M.S. [address] [place] [phone] 12/26/2023 9:30 AM HEAD CLEANING PORTER Office Visit Division of Hematology in [place], [place] [address] [place] [phone] Yvrose Gomes P.A.-C., M.S. [address] [place] [phone] Health Maintenance Due Date Last Done Comments [...] Pneumococcal vaccine (65+ years) Completed 08/26/2021, 08/21/2019 RSV vaccine - (32-36 weeks) or 60+ years Completed 01/18/2023 Zoster Vaccines Completed 03/12/2023, 12/08, 08/04/2014 HPV Vaccines Aged Out No longer eligi ble based on patient's age to complete this topic Insurance MEDICARE [facility]
--- OUTSIDE RECORDS SUMMARY | 2023-11-20 14:27 | XMS_ITS | Clinical Summary ---
Author Organization [facility] Address [address] [place] [address] Care Team Providers Care Portfolio Specialist Name Role Phone Cameron Montgomery MD Primary Care Provider [phone] Allergies No known active allergies Social History Tobacco Use Types Packs/Day Years Used Date Smoking Tobacco: Never Assessed Adolescent Education Answer Date Record ed Getting School Help Needed Not on file 10/29 Sex and Gender Information Value Date Recorded Sex Assigned at Female 04/07/2020 8:36 PM BORE MILL OPERATOR FOR PLASTIC Gender Identity Female 04/07/2020 8:36 PM BORE MILL OPERATOR FOR PLASTIC Sexual Orientation Straight 04/07/2020 8: 37 PM BORE MILL OPERATOR FOR PLASTIC Plan of Treatment Not on file Care Teams Portfolio Specialist Relationship Specialty Start Date End Date Cameron Montgomery MD [facility] [address] [place] [address] PCP - General Family Medicine 04/08/20
--- OUTSIDE RECORDS SUMMARY | 2023-11-20 14:27 | XMS_ITS | Referral Summary ---
Author Organization [facility] Address [address] [place] [address] Care Team Providers Care Pleating Machine Operator Name Role Phone Cameron Montgomery MD Primary Care Provider [phone] Allergies No known active allergies Social History Tobacco Use Types Packs/Day Years Used Date Smoking Tobacco: Never Assessed Adolescent Education Answer Date Record ed Getting School Help Needed Not on file 10/29 Sex and Gender Information Value Date Recorded Sex Assigned at Female 04/07/2020 8:36 PM LOADING UNIT OPERATOR Gender Identity Female 04/07/2020 8:36 PM LOADING UNIT OPERATOR Sexual Orientation Straight 04/07/2020 8: 37 PM LOADING UNIT OPERATOR Plan of Treatment Not on file Care Teams Pleating Machine Operator Relationship Specialty Start Date End Date Cameron Montgomery MD [facility] [address] [place] [address] PCP - General Family Medicine 04/08/20
--- NOTE | 2023-11-20 14:40 | CRLHL7_ITS ---
For Patients: As a result of the Cures Act, medical imaging exams and procedure reports are released immediately into your electronic medical record. You may view this report before your referring provider. If you have questions, please contact your health care provider. BILATERAL SCREENING MAMMOGRAM WITH COMPUTER-AIDED DETECTION AND TOMOSYNTHESIS TECHNIQUE: CC and MLO views were obtained. These mammographic images have been obtained using full-field digital technique. These mammographic images were interpreted with the benefit of computer-aided detection. Breast Tomosynthesis was used in this interpretation. COMPARISON FILM: 11/17/22, 09/06/21, 05/22/20. FINDINGS: There are scattered areas of fibroglandular density IMPRESSION: There is no radiographic evidence for malignancy. ASSESSMENT: BI-RADS Category 2: Benign RECOMMENDATION: Routine screening mammogram in 1 year. A lay language report of this examination will be provided to the patient. Lukasz Castellon M.D. Diagnostic Radiologist [email or web address] Transcribed: 2:04 p.stevie chin/Dictated by: Lukasz Castellon MD @ 11/27/2023 10:05:00 AM (Electronically Signed)
== END 2023-11-20 14:24 | disposition home or self-care (01) ==
LOC: MAMMO 14:24
PROVIDERS: PCP Internal Medicine; Visit Provider Internal Medicine
DX: Z12.31 Encounter for screening mammogram for malignant neoplasm of breast (principal)
CPT/HCPCS: 77063; 77067

== ENCOUNTER 2024-10-01 08:05 | Outpatient (CLI) | payer MEDICARE, BC, SELFPAY | END 2024-10-01 08:06 | disposition home or self-care (01) | LOC: NFLDREF 10-03 14:18 | PROVIDERS: PCP Internal Medicine; Referring Provider Internal Medicine; Visit Provider Internal Medicine | DX: E03.9 Hypothyroidism, unspecified (principal); E78.5 Hyperlipidemia, unspecified | CPT/HCPCS: 80053; 80061; 84443 ==

== ENCOUNTER 2024-12-04 08:01 | Outpatient (CLI) | payer MEDICARE, BC, SELFPAY ==
--- NOTE | 2024-12-04 08:15 | CRLHL7_ITS ---
For Patients: As a result of the Century Cures Act, medical imaging exams and procedure reports are released immediately into your electronic medical record. You may view this report before your referring provider. If you have questions, please contact your health care provider. INDICATION: BILATERAL SCREENING MAMMOGRAM, ASYMPTOMATIC 69 Y/O FEMALE COMPARISON: 11/20/2023, , 09/06/2021 TECHNIQUE: Digital mammogram in CC and MLO projections including computer-aided detection (CAD) and tomosynthesis. BREAST COMPOSITION: There are scattered areas of fibroglandular density. FINDINGS: No suspicious findings. ASSESSMENT: BI-RADS 2 Benign RECOMMENDATION: Annual screening mammogram. A lay language report of this examination will be provided to the patient. Dictated by: Lukasz Castellon MD @ 12/04/2024 10:07:59 (Electronically Signed)
== END 2024-12-04 08:02 | disposition home or self-care (01) ==
LOC: MAMMO 08:02
PROVIDERS: PCP Internal Medicine; Visit Provider Internal Medicine
DX: Z12.31 Encounter for screening mammogram for malignant neoplasm of breast (principal)
CPT/HCPCS: 77063; 77067

== ENCOUNTER 2024-12-23 16:11 | Inpatient (IN) | payer MEDICARE, BC, SELFPAY ==
[2024-12-23] VITALS (9 sets, daily range): BP systolic 118–163; BP diastolic 55–81; PULSE 72–100; RESP 16–18; TEMP 36.4–36.5; O2SAT 94–98; BMI 20.1
[2024-12-23 17:29] LABS: Hematocrit* 42.0 % (33.0-51.0); Hemoglobin* 13.9 gm/dL (12.0-16.0); Immature Granulocytes Pct Auto 0.4 %; Mean Corpuscular HGB Conc 33 gm/dL (32-36); Mean Corpuscular Hemoglobin 30 pg (26-34); Mean Corpuscular Volume 89 fL (80-100); RDW Coefficient of Variation % 12.0 % (11.5-15.5); Red Blood Count* 4.70 m/uL (4.00-5.20); White Blood Count* 18.28 K/uL (4.50-11.00)
[2024-12-23 17:35] LABS: Lactate* 1.7 mmol/L (0.5-1.9)
[2024-12-23 17:38] LABS: Immature Granulocytes Abs Auto 0.10 K/uL (0.00-0.30); Lymphocytes Absolute Auto 9.70 K/uL (0.90-2.90); Slide Review Reflex Yes
[2024-12-23 17:43] LABS: Albumin* 4.8 g/dL (3.3-5.0); Chloride* 89 mmol/L (96-114); Potassium* 5.1 mmol/L (3.6-5.1)
[2024-12-23 17:45] LABS: Blood Urea Nitrogen* 23 mg/dL (7-30); Creatinine* 1.1 mg/dL (0.5-1.5); Est. Creatinine Clearance* 36.95; Estimated Glomerular Filt Rate 54 ml/min
[2024-12-23 17:46] LABS: Alanine Aminotransferase* 29 U/L (4-35); Alkaline Phosphatase* 111 U/L (40-150); Anion Gap 23 mEq/L (7-15); Aspartate Amino Transferase* 25 U/L (12-35); Bilirubin Total* 0.6 mg/dL (0.1-1.5); Calcium* 11.0 mg/dL (8.4-10.6); Carbon Dioxide* 12 mmol/L (20-32); Total Protein* 8.1 g/dL (6.0-8.3)
[2024-12-23 17:59] LABS: NT Pro B Type NatriureticPept* 175 pg/mL (See Note)
[2024-12-23 18:01] LABS: Glucose* 669 mg/dL (60-115); Sodium* 124 mmol/L (135-149)
--- NOTE | 2024-12-23 18:21 | ED.GENADULT ---
HPI - General Adult General Time Seen by Provider: 18:21 Date Seen: 12/23/24 Chief complaint: Weakness Stated complaint: dizziness/ weakness Time Seen by Provider: 12/23/24 18:20 Source: patient and RN notes reviewed Mode of arrival: ambulatory Limitations: no limitations History of Present Illness HPI narrative: This 69-year-old female is coming in with concern of diabetes after going for an eye appointment at [facility] today. She has been having significant problems with bilateral blurry vision, visual changes. She was told that she had vessel changes in the eye concerning for type 1 diabetes. She is never been diagnosed with diabetes before. Her 47-year-old son was recently diagnosed with type 1 diabetes. She states her skin has been dry, she has felt weak and fatigued. She is noted polyuria and polydipsia. Her mouth feels dry. She has lost about 20 lb. Her heart will feel like it is racing at times. She does have underlying CLL, thought she has maybe just having symptoms from that. Patient had labs an EKG done via the lobby due to the volume and acuity. As soon as a room opened up, we did have her glucose back from her lab work and it was 669. Related Data Home Medications ?Medication ?Instructions ?Recorded ?Confirmed omega-3 fatty acids 1,000 mg 1,000 mg PO .1 x week 08/26/21 11/06/24 capsule (Super Sinclair-3) turmeric 100 mg-rancho 150 cap PO 02/18/22 11/06/24 mg-olive 50 mg-oreg 150 mg-capryl capsule B-complex with vitamin C 1 cap PO QDAY 11/09/22 11/06/24 azelastine 205.5 mcg (0.15 %) 1 spray intranasal QHS PRN 11/09/22 11/06/24 nasal spray (Astepro Allergy) diclofenac sodium 1 % topical gel 2 g topical QID 11/09/22 11/06/24 (Voltaren Arthritis Pain) oxymetal inhalation 11/09/22 11/06/24 ketoconazole 2 % topical cream 1 applic topical QDAY 09/27/23 11/06/24 magnesium 250 mg tablet 500 mg PO QDAY 09/27/23 11/06/24 metronidazole 0.75 % topical cream 1 applic topical QDAY 09/27/23 11/06/24 riboflavin (vitamin B2) 100 mg 100 mg PO QDAY 09/27/23 11/06/24 tablet docusate sodium 100 mg capsule mg PO .4 x week PRN 12/01/23 11/06/24 loratadine 10 mg tablet (Allergy 10 mg PO QDAY PRN 12/01/23 11/06/24 Relief (loratadine)) gabapentin 600 mg tablet 600 mg PO QID 10/02/24 11/06/24 Previous Rx's ?Medication ?Instructions ?Recorded hydrocortisone 2.5 % topical cream 1 applic OK BID-QID PRN 08/26/21 with perineal applicator hemorrhoids #30 grams (Anusol-HC) clobetasol 0.05 % topical cream 1 applic topical QHS #60 grams 12/01/23 estradiol 0.01% (0.1 mg/gram) 1 g vaginal 2XW #42.5 grams 12/01/23 vaginal cream (Estrace) valacyclovir 1 gram tablet 1,000 mg PO BID PRN cold sores #10 09/11/24 (Valtrex) tabs eletriptan 40 mg tablet 40 mg PO .COMPLEX #10 tabs 10/02/24 gabapentin 300 mg capsule 300 mg PO TID #300 caps 10/02/24 levothyroxine 112 mcg tablet 112 mcg PO DAILY #90 tabs 10/02/24 trazodone 100 mg tablet 150 mg (1.5 x 100 mg) PO QPM PRN 11/21/24 insomnia #90 tabs Allergies Allergy/AdvReac Type Severity Reaction Status Date / Time zolmitriptan (From Zomig) Allergy Severe lock jaw Verified 11/06/24 15:01 Review of Systems Status of ROS: Reports: 6 or more systems reviewed and unremarkable except as noted in History and below [facility] Medical History Pelvic floor weakness ?N81.89 - Other female genital prolapse (ICD-10) Migraine headache ?G43.909 - Migraine, unspecified, not intractable, without status migrainosus (ICD-10) Migraine headache ?G43.909 - Migraine, unspecified, not intractable, without status migrainosus (ICD-10) 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 - Herpesviral vesicular dermatitis (ICD-10) CLL (chronic lymphocytic leukemia) ?C91.10 - Chronic lymphocytic leukemia of B-cell type not having achieved remission (ICD-10) External hemorrhoids ?K64.4 - Residual hemorrhoidal skin tags (ICD-10) Hypothyroidism ?E03.9 - Hypothyroidism, unspecified (ICD-10) Encounter for screening for severe acute respiratory syndrome coronavirus 2 (SARS-CoV-2) infection ?Z11.52 - Encounter for screening for COVID-19 (ICD-10) History of restless legs syndrome ?Z86.69 - Personal history of other diseases of the nervous system and sense organs (ICD-10) History of fibromyalgia ?Z87.39 - Personal history of other diseases of the musculoskeletal system and connective tissue (ICD-10) Surgical History History of tonsillectomy (1969) ?Z90.89 - Acquired absence of other organs (ICD-10) History of repair of rectocele (2011) ?Z98.890 - Other specified postprocedural states (ICD-10) History of cervical spinal arthrodesis (1998) ?Z98.1 - Arthrodesis status (ICD-10) History of carpal tunnel release of both wrists (2011) ?Z98.890 - Other specified postprocedural states (ICD-10) History of appendectomy (1966) ?Z90.49 - Acquired absence of other specified parts of digestive tract (ICD-10) Family History (Updated 12/23/24 @ 22:42 by Arnav Guadarrama MD) Father Hx of CABG, Onset Age: 70 Brother Gout Son Diabetes Social History (Updated 12/23/24 @ 22:42 by Arnav Guadarrama MD) Narrative: exercises 5-6 times per week- walk outside or 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 stepper , 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, 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 social drinker- 2/week until spring when she stop drinking altogether What is your current living situation?: I presently have a place to live Problems where you live: pests, such as bugs, ants, or mice and mold Problems where you live details: NA In the past 12 months, utilities in danger of being shut off: no In past 12 months, lack of transportation kept you from medical appts, meetings, work, or getting things needed for daily living: no In the past 12 mos, have been you worried that your food would run out before you had money to buy more?: never true In the past 12 mos, the food you bought just didn't last and you didn't have money to buy more?: never true Highest level of school completed/degree received: Associate degree: academic program Smoking Status: Never smoker How often do you have a drink containing alcohol: monthly or less AUDIT-C Alcohol total score: 1 Non-prescribed substance use: denies use Caffeine: Yes How often does anyone, including family, friends and others, physically hurt you: never How often does anyone, including family, friends and others, insult or talk down to you: sometimes How often does anyone, including family, friends and others, threaten you with harm: never How often does anyone, including family, friends and others, scream or curse at you: sometimes Are you using contraception or practicing any form of control: No service: No Health Related Social Needs: Inadequate housing (Z59.1) and Other personal risk factors, not elsewhere classified (Z91.89) Exam Const: Vital Signs, click to edit/add: Vital Signs - 24 hr 12/23/24 16:25 12/23/24 19:00 Temperature 97.7 F Pulse Rate [Pulse Oximeter] 100 94 Respiratory Rate 16 18 Blood Pressure [Ri ght Upper Arm] 163/69 H 134/81 Pulse Oximetry 98 96 Oxygen Delivery Me thod Room Air This 69-year-old female is up ambulatory in the room, putting her gown on when I come in. She is slender, alert, interactive, no apparent distress. Pupils equal round reactive, sclera clear, extraocular muscles intact. Lips appear normal, oropharynx does appear dry but no exudates. Neck is supple, no masses. Lungs are clear, good air entry, no wheezing crackles, no tachypnea, no accessory muscle use. CV is slightly fast but regular, no murmur, normal S1-S2, no S3-S4. Abdomen is soft, nontender, nondistended, no organomegaly, rebound or guarding or masses. She has no lower extremity edema, skin without rash. Documenting provider has reviewed patient's vital signs: yes Course Course ED Course: This patient is most definitely has diabetes. She is likely going to need admission. Will add on a venous blood gas, urinalysis has been added. I will leave to the hospitalist whether or not they want to do any testing for type 1 diabetes and insulin antibodies. She is just about 50 kilos, will start with a L of normal saline and 6 units of regular insulin. Her sodium is at 124, most definitely represents pseudohyponatremia from her hyperglycemia. Her tachycardia is likely physiologic from overall fluid deficit. Consultations Consultation #1: Have spoken with the hospitalist Dr. Guadarrama. He agrees with admission. He would like an insulin drip initiated. We did discuss the type 1 antibodies in insulin antibodies, he will order and look into that further. It would be atypical for a 68-year-old patient to developed type 1 but she could have a combined typing of diabetes. Again, her son was diagnosed with type 1 diabetes at age 47. I have ordered the insulin drip, I have also ordered a 2 L of normal saline over 2 hours. He will manage further electrolytes and orders. Patient will go to our CCU as she is on an insulin drip. She will be inpatient. Time: 18:59 Vital Signs Vital signs: Initial Vital Signs Temperature 97.7 F 12/23/24 16:25 Temperature Source Temporal Artery Scan 12/23/24 16:25 Pulse Rate 100 12/23/24 16:25 Pulse Rhythm Regular 12/23/24 16:25 Respiratory Rate 16 12/23/24 16:25 Blood Pressure 163/69 H 12/23/24 16:25 Blood Pressure Mean 100 12/23/24 16:25 Blood Pressure Position Sitting 12/23/24 16:25 Pulse Oximetry 98 12/23/24 16:25 Vital Signs Temperature 97.7 F 12/23/24 16:25 Pulse Rate 100 12/23/24 16:25 Respiratory Rate 16 12/23/24 16:25 Blood Pressure 163/69 H 12/23/24 16:25 Pulse Oximetry 98 12/23/24 16:25 Temperature 97.9 F 12/24/24 08:00 Pulse Rate 78 12/24/24 08:00 Respiratory Rate 16 12/24/24 08:00 Blood Pressure 119/57 L 12/24/24 08:00 Pulse Oximetry 98 12/24/24 08:00 Oxygen Delivery Method Room Air 12/24/24 08:00 Medications Administered Medications: Generic Name Dose Route Start Last Admin Trade Name Senia PRN Reason Stop Dose Admin Enoxaparin Sodium 40 mg 12/23/24 21:00 12/23/24 21:48 Enoxaparin 40 Mg/0.4 Ml Inj SUBCUT 40 mg HS TANO Administration Gabapentin 600 mg 12/23/24 21:00 12/23/24 21:48 Gabapentin 600 Mg Tablet PO 600 mg QID TANO Administration Insulin Human (Reg)/Sodium Chloride 100 unit in 100 mls @ 6.5 mls/hr 12/23/24 19:00 12/24/24 07:31 Insulin Inf 100 Unit/100 Ml IVPB 4 unit/hr .[id number] TANO 4 mls/hr Protocol Infusion 6.5 UNIT/HR Dextrose/Lactated Ringer's 1,000 mls @ 75 mls/hr 12/23/24 22:38 12/23/24 23:07 5 % Dextrose In Lac Ringer's IV 75 mls/hr .[id number] TANO Administration Levothyroxine Sodium 112 mcg 12/24/24 06:00 12/24/24 05:55 Levothyroxine 112 Mcg Tablet PO 112 mcg 0600 TANO Administration Sodium Chloride 5 ml 12/23/24 21:00 12/23/24 21:48 Sodium Chloride 0.9 % (Flush) 10 Ml Syringe IVF 5 ml BID TANO Administration Discontinued Medications Generic Name Dose Route Start Last Admin Trade Name Senia PRN Reason Stop Dose Admin Sodium Chloride 1,000 mls @ 500 mls/hr 12/23/24 18:25 12/23/24 23:30 0.9 % Sodium Chloride 1000 Ml IV 12/23/24 20:24 Infused .Q2H TANO Infusion Sodium Chloride 1,000 mls @ 500 mls/hr 12/23/24 18:58 12/23/24 20:55 0.9 % Sodium Chloride 1000 Ml IV 12/23/24 20:57 Not Given .Q2H TANO Lactated Ringer's 1,000 mls @ 500 mls/hr 12/23/24 20:39 12/23/24 23:30 Lactated Ringers 1000 Ml IV 12/23/24 22:38 Infused .Q2H TANO Infusion Insulin Human Regular 6 unit 12/23/24 18:25 12/23/24 18:46 Insulin Regular, Human 100 Unit/Ml Vial IVP 12/23/24 18:26 6 unit ONCE ONE Administration Medical Decision Making Lab Data Lab results reviewed: Yes I reviewed the patient's lab results Labs: Lab Results 12/23/24 12/23/24 12/23/24 Range/Units 17:10 18:05 18:26 WBC 18.28 H (4.50-11.00) K/uL RBC 4.70 (4.00-5.20) m/uL Hgb 13.9 (12.0-16.0) gm/dL Hct 42.0 (33.0-51.0) % MCV 89 (80-100) fL MCH 30 (26-34) pg MCHC 33 (32-36) gm/dL RDW Coeff of Maurizio 12.0 (11.5-15.5) % Plt Count 372 (140-440) K/uL Neut % (Auto) 41.2 L (42.0-72.0) % Lymph % (Auto) 53.2 H (20-44) % Falls % (Auto) 4.5 (0.0-11.0) % Eos % (Auto) 0.2 (0.0-7.0) % Baso % (Auto) 0.5 (0.0-3.0) % Neut # (Auto) 7.50 H (1.7-7.0) K/uL Lymph # (Auto) 9.70 H (0.90-2.90) K/uL Falls # (Auto) 0.80 (0.00-0.90) K/UL Eos # (Auto) 0.00 (0.00-0.50) K/uL Baso # (Auto) 0.10 (0.00-0.30) K/uL Abs Immat Gran (auto) 0.10 (0.00-0.30) K/uL Imm/Tot Granulo (auto) 0.4 % Diff Slide Review Acceptable Review (Acceptable) VBG pH 7.285 L (7.32-7.43) VBG pCO2 35 L (40-50) mmHG VBG pO2 41.8 (25-47) mmHG VBG HCO3 16 L (21-28) mmol/L Sodium 124 L* (135-149) mmol/L Potassium 5.1 (3.6-5.1) mmol/L Chloride 89 L (96-114) mmol/L Carbon Dioxide 12 L (20-32) mmol/L Anion Gap 23 H (7-15) mEq/L BUN 23 (7-30) mg/dL Creatinine 1.1 (0.5-1.5) mg/dL Estimated Creat Clear 36.95 Estimated GFR 54 ml/min Glucose 669 H* (60-115) mg/dL Hemoglobin A1c > 14.0 H (0-5.6) % Lactate 1.7 (0.5-1.9) mmol/L Calcium 11.0 H (8.4-10.6) mg/dL Magnesium 1.9 (1.5-2.6) mg/dL Total Bilirubin 0.6 (0.1-1.5) mg/dL AST 25 (12-35) U/L ALT 29 (4-35) U/L Alkaline Phosphatase 111 (40-150) U/L Troponin I 0.01 (0.01-0.04) ng/mL C-Reactive Protein < 0.5 L (0.5-1.0) mg/dL NT-Pro-B Natriuret Pep 175 (See Note) pg/mL Total Protein 8.1 (6.0-8.3) g/dL Albumin 4.8 (3.3-5.0) g/dL TSH 4.630 H (0.270-4.200) uIU/mL Free T4 1.56 (0.70-1.85) ng/dL Lab Acknowledgement Test Added Test Added ECG Data Attestation: I personally reviewed and interpreted this ECG as follows: (Sinus tachycardia, 106 beats per minute. No definitive ischemic change noted.) Prior ECG tracings: available for review (Had sinus bradycardia with sinus arrhythmia at 56 beats per minute on 08/26/2022) Critical Care Time Critical Care Time Critical Care Time: Yes Attestation: The patient required my highest level preparedness to intervene emergently and I personally spent this critical care time directly and personally managing the patient. This critical care time included: Obtaining a history; Examining the patient; Pulse oximetry; Ordering and reviewing of studies; Arranging urgent treatment with development of a management plan; Evaluation of patients response to treatment; Frequent reassessment discussions with other providers. This critical care time was performed to assess and manage the high probability of imminent life-threatening deterioration that could result in multiorgan failure. It was exclusive of separate billable procedures and treating other patients and teaching time. Total Critical Care Time in Minutes: 30 Discharge Plan Discharge Clinical Impression: Newly diagnosed diabetes, Acute hyperglycemia, Acidosis, Chronic lymphocytic leukemia Patient Disposition: Admitted As Inpatient Procedures ABG Interpretation ABG Results: 12/23/24 17:10 VBG pH 7.285 L VBG pCO2 35 L VBG pO2 41.8 VBG HCO3 16 L
[2024-12-23 18:35] LABS: HCO3 VBG 16 mmol/L (21-28); PCO2 VBG 35 mmHG (40-50); PO2 VBG 41.8 mmHG (25-47); pH VBG 7.285 (7.32-7.43)
[2024-12-23] MEDS: INSULIN REGULAR, HUMAN 100 UNIT/ML VIAL 6 UNIT IVP (18:46)
[2024-12-23 18:54] LABS: Slide Review Acceptable Review (Acceptable)
[2024-12-23] MEDS: INSULIN INF 100 UNIT/100 ML 100 UNIT/100 ML BAG 6.5 UNIT IVPB (19:18)
[2024-12-23 19:25] LABS: TSH With Reflex to FT4* 4.630 uIU/mL (0.270-4.200)
[2024-12-23 19:53] LABS: Free T4 Free Thyroxine* 1.56 ng/dL (0.70-1.85)
[2024-12-23] MEDS: LACTATED RINGERS 1000 ML 1,000 ML 500 ML IV (20:55)
[2024-12-23] MEDS: SODIUM CHLORIDE 0.9 % (FLUSH) 10 ML SYRINGE 5 ML IVF (21:48)
[2024-12-23] MEDS: ENOXAPARIN 40 MG/0.4 ML INJ SUBCUT (21:48)
[2024-12-23] MEDS: GABAPENTIN 600 MG TABLET PO (21:48)
[2024-12-23 22:10] LABS: Est. Creatinine Clearance* 40.81; Estimated Glomerular Filt Rate 68 ml/min
[2024-12-23 22:17] LABS: Appearance Urine Cloudy (Clear)
--- NOTE | 2024-12-23 22:39 | PM.IMHP1 ---
Assessment and Plan Assessment and plan (1) Acute hyperglycemia: Problem comment: Fluids, insulin drip, close monitoring of electrolytes. Status: Acute (2) DKA, type 1: Problem comment: New onset hyperglycemia in the last 2-3 months. Suspect type 1 diabetes with late adult onset. Check antibodies, jarocho 65, insulin, tyrosine phosphatase 2 Status: Suspected (3) Chronic lymphocytic leukemia: Problem comment: Not currently getting treatment Status: Acute Plan Patient is a 69-year-old female who has probable DKA with new onset type 1 diabetes. Associated typical metabolic abnormalities. Clinically improving. Anticipate getting off the insulin drip tomorrow and transitioning to subcutaneous insulin. Total Time Spent Total Time Spent: Total time spent today is 80 minutes in reviewing outside records, coordination of care, discussion with patient and her ongoing management of diabetes presumed to be type 1 with DKA Hospitalist- H&P: HPI History of Present Illness Date Seen: 12/23/24 Chief complaint: dizziness/ weakness Narrative: Kizzy Carolina is a 69 year old female with CLL admitted to the hospital with hyperglycemia and blurry vision. Patient reports that starting about a month ago she developed blurry vision, polyuria, prominent thirst. She saw her eye doctor who was concerned about diabetes and referred her here. No previous history of diabetes or abnormal blood sugar. No previous history of pancreatic disease. She has a BMI of 20. In September she had a normal blood sugar. Her son developed type 1 diabetes in his mid 40s. She is not being treated for CLL Review of Systems Narrative: She reports generally doing well except as noted above. Recently she has had a poor appetite and nausea in addition to her polyuria and polydipsia and blurred vision. 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 - Herpesviral vesicular dermatitis (ICD-10) CLL (chronic lymphocytic leukemia) ?C91.10 - Chronic lymphocytic leukemia of B-cell type not having achieved remission (ICD-10) External hemorrhoids ?K64.4 - Residual hemorrhoidal skin tags (ICD-10) Hypothyroidism ?E03.9 - Hypothyroidism, unspecified (ICD-10) Encounter for screening for severe acute respiratory syndrome coronavirus 2 (SARS-CoV-2) infection ?Z11.52 - Encounter for screening for COVID-19 (ICD-10) History of restless legs syndrome ?Z86.69 - Personal history of other diseases of the nervous system and sense organs (ICD-10) History of fibromyalgia ?Z87.39 - Personal history of other diseases of the musculoskeletal system and connective tissue (ICD-10) Surgical History History of tonsillectomy (1969) ?Z90.89 - Acquired absence of other organs (ICD-10) History of repair of rectocele (2011) ?Z98.890 - Other specified postprocedural states (ICD-10) History of cervical spinal arthrodesis (1998) ?Z98.1 - Arthrodesis status (ICD-10) History of carpal tunnel release of both wrists (2011) ?Z98.890 - Other specified postprocedural states (ICD-10) History of appendectomy (1966) ?Z90.49 - Acquired absence of other specified parts of digestive tract (ICD-10) Family History (Updated 12/23/24 @ 22:42 by Arnav Guadarrama MD) Father Hx of CABG, Onset Age: 70 Brother Gout Son Diabetes Social History (Updated 12/23/24 @ 22:42 by Arnav Guadarrama MD) Narrative: exercises 5-6 times per week- walk outside or stair stepper , 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, 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 social drinker- 2/week until spring when she stop drinking altogether What is your current living situation?: I presently have a place to live Problems where you live: pests, such as bugs, ants, or mice and mold Problems where you live details: NA In the past 12 months, utilities in danger of being shut off: no In past 12 months, lack of transportation kept you from medical appts, meetings, work, or getting things needed for daily living: no In the past 12 mos, have been you worried that your food would run out before you had money to buy more?: never true In the past 12 mos, the food you bought just didn't last and you didn't have money to buy more?: never true Highest level of school completed/degree received: Associate degree: academic program Smoking Status: Never smoker How often do you have a drink containing alcohol: monthly or less AUDIT-C Alcohol total score: 1 Non-prescribed substance use: denies use Caffeine: Yes How often does anyone, including family, friends and others, physically hurt you: never How often does anyone, including family, friends and others, insult or talk down to you: sometimes How often does anyone, including family, friends and others, threaten you with harm: never How often does anyone, including family, friends and others, scream or curse at you: sometimes Are you using contraception or practicing any form of control: No service: No Health Related Social Needs: Inadequate housing (Z59.1) and Other personal risk factors, not elsewhere classified (Z91.89) Meds Home Medications and Allergies Home Medications ?Medication ?Instructions ?Recorded ?Confirmed ?Type hydrocortisone 2.5 % topical cream 1 applic OK BID-QID PRN 08/26/21 11/06/24 Rx with perineal applicator hemorrhoids #30 grams (Anusol-HC) omega-3 fatty acids 1,000 mg 1,000 mg PO .1 x week 08/26/21 11/06/24 History capsule (Super [place]-3) turmeric 100 mg-rancho 150 cap PO 02/18/22 11/06/24 History mg-olive 50 mg-oreg 150 mg-capryl capsule B-complex with vitamin C 1 cap PO QDAY 11/09/22 11/06/24 History azelastine 205.5 mcg (0.15 %) 1 spray intranasal QHS PRN 11/09/22 11/06/24 History nasal spray (Astepro Allergy) diclofenac sodium 1 % topical gel 2 g topical QID 11/09/22 11/06/24 History (Voltaren Arthritis Pain) oxymetal inhalation 11/09/22 11/06/24 History ketoconazole 2 % topical cream 1 applic topical QDAY 09/27/23 11/06/24 History magnesium 250 mg tablet 500 mg PO QDAY 09/27/23 11/06/24 History metronidazole 0.75 % topical cream 1 applic topical QDAY 09/27/23 11/06/24 History riboflavin (vitamin B2) 100 mg 100 mg PO QDAY 09/27/23 11/06/24 History tablet clobetasol 0.05 % topical cream 1 applic topical QHS #60 grams 12/01/23 11/06/24 Rx docusate sodium 100 mg capsule mg PO .4 x week PRN 12/01/23 11/06/24 History estradiol 0.01% (0.1 mg/gram) 1 g vaginal 2XW #42.5 grams 12/01/23 11/06/24 Rx vaginal cream (Estrace) loratadine 10 mg tablet (Allergy 10 mg PO QDAY PRN 12/01/23 11/06/24 History Relief (loratadine)) valacyclovir 1 gram tablet 1,000 mg PO BID PRN cold sores #10 09/11/24 11/06/24 Rx (Valtrex) tabs eletriptan 40 mg tablet 40 mg PO .COMPLEX #10 tabs 10/02/24 11/06/24 Rx gabapentin 300 mg capsule 300 mg PO TID #300 caps 10/02/24 11/06/24 Rx gabapentin 600 mg tablet 600 mg PO QID 10/02/24 11/06/24 History levothyroxine 112 mcg tablet 112 mcg PO DAILY #90 tabs 10/02/24 11/06/24 Rx trazodone 100 mg tablet 150 mg (1.5 x 100 mg) PO QPM PRN 11/21/24 Rx insomnia #90 tabs Allergies Allergy/AdvReac Type Severity Reaction Status Date / Time zolmitriptan (From Zomig) Allergy Severe lock jaw Verified 11/06/24 15:01 Exam Narrative: Exam Narrative: She is alert and appears in no distress. She gives her own history. Eyes normal. Oropharynx with dry mucous membranes. Otherwise normal. Neck is supple without mass or adenopathy. Respirations are clear to auscultation. Cardiovascular: S1, S2, regular rate and rhythm. Abdomen is soft without tenderness or mass. Extremities without edema. She has intact pedal pulses. Slightly delayed capillary refill in cool hands Const: Vital Signs, click to edit/add: Vital Signs - 24 hr 12/23/24 16:25 12/23/24 19:00 12/23/24 20:03 Temperature 97.7 F 97.6 F Pulse Rate Pulse Rate [Left R adial] 80 Pulse Rate [Pulse Oximeter] 100 94 Respiratory Rate 16 18 16 Blood Pressure [Le ft Arm] 148/77 H Blood Pressure [Ri ght Upper Arm] 163/69 H 134/81 Pulse Oximetry 98 96 98 Oxygen Delivery Me thod Room Air Room Air 12/23/24 20:10 12/23/24 21:04 12/23/24 21:52 Temperature 97.6 F 97.5 F L Pulse Rate Pulse Rate [Left R adial] 80 80 Pulse Rate [Pulse Oximeter] Respiratory Rate 16 16 16 Blood Pressure [Le ft Arm] 148/77 H 126/55 L Blood Pressure [Ri ght Upper Arm] Pulse Oximetry 98 98 98 Oxygen Delivery Me thod Room Air Room Air Room Air 12/23/24 22:27 12/23/24 22:31 Temperature Pulse Rate 72 Pulse Rate [Left R adial] 80 Pulse Rate [Pulse Oximeter] Respiratory Rate 16 Blood Pressure [Le ft Arm] Blood Pressure [Ri ght Upper Arm] Pulse Oximetry Oxygen Delivery Me thod Documenting provider has reviewed patient's vital signs: yes Hospitalist - H&P: Result Labs Labs: Short CBC 12/23/24 Range/Units 17:10 WBC 18.28 H (4.50-11.00) K/uL Hgb 13.9 (12.0-16.0) gm/dL Hct 42.0 (33.0-51.0) % Plt Count 372 (140-440) K/uL BMP 12/23/24 12/23/24 17:10 21:31 Sodium 124 L* 131 L Potassium 5.1 4.2 Chloride 89 L 99 Carbon Dioxide 12 L 21 BUN 23 19 Creatinine 1.1 0.9 Glucose 669 H* 339 H Calcium 11.0 H 9.9 Cardiac Enzymes 12/23/24 Range/Units 17:10 Troponin I 0.01 (0.01-0.04) ng/mL Liver Function 12/23/24 Range/Units 17:10 Total Bilirubin 0.6 (0.1-1.5) mg/dL AST 25 (12-35) U/L ALT 29 (4-35) U/L Alkaline Phosphatase 111 (40-150) U/L Albumin 4.8 (3.3-5.0) g/dL Urine 12/23/24 Range/Units 22:00 Urine Color Yellow (Yellow) Urine Appearance Cloudy A (Clear) Urine pH 5.5 (5.0-8.5) Ur Specific [place] 1.015 (1.000-1.030) Urine Protein Trace A (Negative) Urine Glucose (UA) 2+ A (Negative)
[2024-12-23] MEDS: 5 % DEXTROSE IN LAC RINGER'S 1,000 ML 75 ML IV (23:07)
[2024-12-23 23:08] LABS: Anion Gap 13 mEq/L (7-15); Carbon Dioxide* 22 mmol/L (20-32); Chloride* 95 mmol/L (96-114); Sodium* 130 mmol/L (135-149)
[2024-12-23 23:25] LABS: Potassium* 4.3 mmol/L (3.6-5.1)
[2024-12-23 23:28] LABS: Blood Urea Nitrogen* 19 mg/dL (7-30); Calcium* 9.8 mg/dL (8.4-10.6); Creatinine* 0.8 mg/dL (0.5-1.5); Glucose* 347 mg/dL (60-115)
[2024-12-24] VITALS (16 sets, daily range): BP systolic 103–125; BP diastolic 54–69; PULSE 71–90; RESP 12–16; TEMP 36.1–36.6; O2SAT 95–99
[2024-12-24] MEDS: LEVOTHYROXINE 112 MCG TABLET PO (05:55)
--- NOTE | 2024-12-24 06:10 | PC.NURSE ---
Pt came to floor on Insulin ggt (BG 544) and steadily declined to 74 @ 0420. ggt stopped. BG dropped to 53 0450; OJ and 2 sugars given. 0500 BG was 78 Snack given. By 0520 BG was 153 and then 0600 BG was 233. ggt started again at 3u per hour per protocol. Pt states she is weak yet better than last evening. Still has blurred vision. Up SBA and voiding.
[2024-12-24 06:25] LABS: Hematocrit* 34.0 % (33.0-51.0); Hemoglobin* 11.5 gm/dL (12.0-16.0); Immature Granulocytes Pct Auto 0.4 %; Mean Corpuscular HGB Conc 34 gm/dL (32-36); Mean Corpuscular Hemoglobin 30 pg (26-34); Mean Corpuscular Volume 89 fL (80-100); RDW Coefficient of Variation % 12.0 % (11.5-15.5); Red Blood Count* 3.83 m/uL (4.00-5.20); White Blood Count* 13.18 K/uL (4.50-11.00)
[2024-12-24 06:29] LABS: Chloride* 102 mmol/L (96-114)
[2024-12-24 06:30] LABS: Potassium* 4.0 mmol/L (3.6-5.1); Sodium* 131 mmol/L (135-149)
[2024-12-24 06:32] LABS: Immature Granulocytes Abs Auto 0.10 K/uL (0.00-0.30); Lymphocytes Absolute Auto 6.80 K/uL (0.90-2.90); Slide Review Reflex No
[2024-12-24 06:33] LABS: Anion Gap 5 mEq/L (7-15); Blood Urea Nitrogen* 13 mg/dL (7-30); Calcium* 9.1 mg/dL (8.4-10.6); Carbon Dioxide* 24 mmol/L (20-32); Creatinine* 0.7 mg/dL (0.5-1.5); Est. Creatinine Clearance* 40.81; Estimated Glomerular Filt Rate 92 ml/min; Glucose* 193 mg/dL (60-115)
[2024-12-24 08:13] LABS: HCO3 VBG 26 mmol/L (21-28); PCO2 VBG 38 mmHG (40-50); PO2 VBG 64.6 mmHG (25-47); pH VBG 7.433 (7.32-7.43)
[2024-12-24] MEDS: GABAPENTIN 600 MG TABLET PO ×4 (08:36→20:44)
--- NOTE | 2024-12-24 10:36 | W.PC.NUTR.NO ---
Nutrition Progress Note Progress Note Progress Note: RDN with MD consult related to new onset of diabetes, suspecting type 1. Patient arrived to floor this morning at about 0420. Will attempt to visit and provide diet education tomorrow when more appropriate.
--- NOTE | 2024-12-24 12:23 | PM.IMPN1 ---
Assessment and Plan Assessment and plan (1) DKA, type 1: Problem comment: New onset hyperglycemia in the last 2-3 months. Suspect type 1 diabetes with late adult onset. Check antibodies, jarocho 65, insulin, tyrosine phosphatase 2 12/24: Off the insulin drip. Off of fluids. Tolerating a p.o. diet. New regimen of basal bolus. Lantus at 10, mealtime insulin at 8. Follow blood sugars carefully and likely discharge with outpatient endocrinology Status: Suspected (2) Acute hyperglycemia: Problem comment: Fluids, insulin drip, close monitoring of electrolytes. 12/24 resolved Status: Acute (3) CLL (chronic lymphocytic leukemia): Problem comment: active surveillance Status: Acute (4) Hypothyroidism: Problem comment: TSH checked. Subclinical hypothyroidism with normal T4 Status: Acute Subjective Date Seen: 12/24/24 Interval history: Daily Progress Note - Hospital Medicine Day #: 2 CC: new type 1 DM; DKA 24 HOUR UPDATE: much improved. gap closed. hyperglycemia resolved. off insulin gtt. off fluids. awake and eating. started basal bolus regimen. patient asks a lot of indepth questions about etiology of DM; her CLL, etc. Notable Labs, Micro, Rads, Interventions: Afebrile. Blood pressure 122/61. Pulse 83. Respirations 12. 96% on room air. 52.7 kilos. CBC reflects that her white blood cell count has gone from 18.2 down to 13.2 Hemoglobin went from 13.9 down to 11.5. Her platelet count has remained stable and normal. Her pH is improved nicely. 7.28 up to 7.43 Her pseudo hyponatremia has resolved with her hyperglycemia. This morning we noted a sodium of 131. Normal renal function. Glucose 193. Anion gap of 5. Bicarb of 24. Her urine is cloudy with 4+ ketones. Minimal white blood cells. Negative LE and nitrite. No imaging this admission. Urine culture pending. EKG reviewed. Objective: Sleepy but quite insightful. Vitals: see above Lungs: Clear. Cardiac: S1S2. Disposition/Potential discharge - Home in 24 hours to 48 hours. Today I spent 50 minutes seeing the patient, reviewing Expanse and EPIC notes/diagnostics, discussing the care plan with our care time that includes social work, PT/OT, pharmacy, RT, snf and documenting my impressions and plan in the medical record. Exam Const: Vital Signs, click to edit/add: Vital Signs - 24 hr 12/23/24 16:25 12/23/24 19:00 12/23/24 20:03 Temperature 97.7 F 97.6 F Pulse Rate Pulse Rate [Left P ulse Oximeter] Pulse Rate [Left R adial] 80 Pulse Rate [Pulse Oximeter] 100 94 Respiratory Rate 16 18 16 Blood Pressure [Le ft Arm] 148/77 H Blood Pressure [Ri ght Upper Arm] 163/69 H 134/81 Pulse Oximetry 98 96 98 Oxygen Delivery Me thod Room Air Room Air 12/23/24 20:10 12/23/24 21:04 12/23/24 21:52 Temperature 97.6 F 97.5 F L Pulse Rate Pulse Rate [Left P ulse Oximeter] Pulse Rate [Left R adial] 80 80 Pulse Rate [Pulse Oximeter] Respiratory Rate 16 16 16 Blood Pressure [Le ft Arm] 148/77 H 126/55 L Blood Pressure [Ri ght Upper Arm] Pulse Oximetry 98 98 98 Oxygen Delivery Me thod Room Air Room Air Room Air 12/23/24 22:27 12/23/24 22:31 12/23/24 23:59 Temperature 97.6 F Pulse Rate 72 Pulse Rate [Left P ulse Oximeter] Pulse Rate [Left R adial] 80 78 Pulse Rate [Pulse Oximeter] Respiratory Rate 16 16 Blood Pressure [Le ft Arm] 118/60 Blood Pressure [Ri ght Upper Arm] Pulse Oximetry 94 Oxygen Delivery Me thod Room Air 12/24/24 01:57 12/24/24 03:50 12/24/24 05:56 Temperature 97.6 F 97.6 F 97.2 F L Pulse Rate Pulse Rate [Left P ulse Oximeter] Pulse Rate [Left R adial] 72 81 78 Pulse Rate [Pulse Oximeter] Respiratory Rate 16 16 16 Blood Pressure [Le ft Arm] 113/58 L 103/58 L 106/55 L Blood Pressure [Ri ght Upper Arm] Pulse Oximetry 95 95 95 Oxygen Delivery Me thod Room Air Room Air Room Air 12/24/24 08:00 12/24/24 09:03 12/24/24 10:00 Temperature 97.9 F Pulse Rate 87 Pulse Rate [Left P ulse Oximeter] Pulse Rate [Left R adial] 78 78 Pulse Rate [Pulse Oximeter] Respiratory Rate 16 12 Blood Pressure [Le ft Arm] 119/57 L 125/66 Blood Pressure [Ri ght Upper Arm] Pulse Oximetry 98 96 Oxygen Delivery Me thod Room Air Room Air 12/24/24 12:00 Temperature 98 F Pulse Rate Pulse Rate [Left P ulse Oximeter] 71 Pulse Rate [Left R adial] Pulse Rate [Pulse Oximeter] Respiratory Rate 12 Blood Pressure [Le ft Arm] 125/69 Blood Pressure [Ri ght Upper Arm] Pulse Oximetry 96 Oxygen Delivery Me thod Room Air Labs Labs: Laboratory Results - last 24 hr 12/23/24 12/23/24 12/23/24 17:10 18:05 18:26 WBC 18.28 H RBC 4.70 Hgb 13.9 Hct 42.0 MCV 89 MCH 30 MCHC 33 RDW Coeff of Maurizio 12.0 Plt Count 372 Neut % (Auto) 41.2 L Lymph % (Auto) 53.2 H [place] % (Auto) 4.5 Eos % (Auto) 0.2 Baso % (Auto) 0.5 Neut # (Auto) 7.50 H Lymph # (Auto) 9.70 H [place] # (Auto) 0.80 Eos # (Auto) 0.00 Baso # (Auto) 0.10 Abs Immat Gran (auto) 0.10 Imm/Tot Granulo (auto) 0.4 Diff Slide Review Acceptable Review VBG pH 7.285 L VBG pCO2 35 L VBG pO2 41.8 VBG HCO3 16 L Sodium 124 L* Potassium 5.1 Chloride 89 L Carbon Dioxide 12 L Anion Gap 23 H BUN 23 Creatinine 1.1 Estimated Creat Clear 36.95 Estimated GFR 54 Glucose 669 H* Hemoglobin A1c > 14.0 H Lactate 1.7 Calcium 11.0 H Magnesium 1.9 Total Bilirubin 0.6 AST 25 ALT 29 Alkaline Phosphatase 111 Troponin I 0.01 C-Reactive Protein < 0.5 L NT-Pro-B Natriuret Pep 175 Total Protein 8.1 Albumin 4.8 TSH 4.630 H Free T4 1.56 Urine Color Urine Appearance Urine pH Ur Specific [place] Urine Protein Urine Glucose (UA) Urine Ketones Urine Blood Urine Nitrite Urine Bilirubin Urine Urobilinogen Ur Leukocyte Esterase Urine RBC Urine WBC Ur Squamous Epith Cells Urine Bacteria Fine Granular Casts Lab Acknowledgement Test Added Test Added 12/23/24 12/23/24 12/24/24 21:31 22:00 05:50 WBC 13.18 H RBC 3.83 L Hgb 11.5 L Hct 34.0 MCV 89 MCH 30 MCHC 34 RDW Coeff of Maurizio 12.0 Plt Count 292 Neut % (Auto) 36.6 L Lymph % (Auto) 51.4 H [place] % (Auto) 9.0 Eos % (Auto) 2.0 Baso % (Auto) 0.6 Neut # (Auto) 4.80 Lymph # (Auto) 6.80 H [place] # (Auto) 1.20 H Eos # (Auto) 0.30 Baso # (Auto) 0.10 Abs Immat Gran (auto) 0.10 Imm/Tot Granulo (auto) 0.4 Diff Slide Review VBG pH VBG pCO2 VBG pO2 VBG HCO3 Sodium 130 L 131 L Potassium 4.3 4.0 Chloride 95 L 102 Carbon Dioxide 22 24 Anion Gap 13 5 L BUN 19 13 Creatinine 0.8 0.7 Estimated Creat Clear 40.81 40.81 Estimated GFR 68 92 Glucose 347 H 193 H Hemoglobin A1c Lactate Calcium 9.8 9.1 Magnesium Total Bilirubin AST ALT Alkaline Phosphatase Troponin I C-Reactive Protein NT-Pro-B Natriuret Pep Total Protein Albumin TSH Free T4 Urine Color Yellow Urine Appearance Cloudy A Urine pH 5.5 Ur Specific [place] 1.015 Urine Protein Trace A Urine Glucose (UA) 2+ A Urine Ketones 4+ A Urine Blood Trace-intact A Urine Nitrite Negative Urine Bilirubin 1+ A Urine Urobilinogen 0.2 Ur Leukocyte Esterase Negative Urine RBC 0-2 Urine WBC 5-10 A Ur Squamous Epith Cells Few Urine Bacteria None Fine Granular Casts Few A Lab Acknowledgement 12/24/24 08:00 WBC RBC Hgb Hct MCV MCH MCHC RDW Coeff of Maurizio Plt Count Neut % (Auto) Lymph % (Auto) [place] % (Auto) Eos % (Auto) Baso % (Auto) Neut # (Auto) Lymph # (Auto) [place] # (Auto) Eos # (Auto) Baso # (Auto) Abs Immat Gran (auto) Imm/Tot Granulo (auto) Diff Slide Review VBG pH 7.433 H VBG pCO2 38 L VBG pO2 64.6 H VBG HCO3 26 Sodium Potassium Chloride Carbon Dioxide Anion Gap BUN Creatinine Estimated Creat Clear Estimated GFR Glucose Hemoglobin A1c Lactate Calcium Magnesium Total Bilirubin AST ALT Alkaline Phosphatase Troponin I C-Reactive Protein NT-Pro-B Natriuret Pep Total Protein Albumin TSH Free T4 Urine Color Urine Appearance Urine pH Ur Specific [place] Urine Protein Urine Glucose (UA) Urine Ketones Urine Blood Urine Nitrite Urine Bilirubin Urine Urobilinogen Ur Leukocyte Esterase Urine RBC Urine WBC Ur Squamous Epith Cells Urine Bacteria Fine Granular Casts Lab Acknowledgement
[2024-12-24] MEDS: 5 % DEXTROSE IN LAC RINGER'S 1,000 ML 75 ML IV (12:35)
[2024-12-24] MEDS: INSULIN ASPART 100 UNIT/ML 6 UNIT SUBCUT (12:46)
[2024-12-24] MEDS: CALCIUM CARBONATE 500 MG CHEW PO (13:59)
[2024-12-24] MEDS: INSULIN ASPART 100 UNIT/ML 8 UNIT SUBCUT (18:09)
--- NOTE | 2024-12-24 18:40 | PC.NURSE ---
Nursing Care Hours: [id number] Pt this shift calm and cooperative, alert and oriented. No c/o pain. Does c/o dry scratchy throat and feeling increased hunger and thirst. Pt reported right hand swelling. 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 Instructed pt to intermittently make fists and to elevate hand while sitting. IV site WNL. Insulin drip dc'd, and new orders administered without issue. Pt education focused on diet, choosing high protein options. Complex carbs vs simple carbs. Discussed different types of insulin and how they are used. Printed out pt education material and gave to pt. Pt reports reading the material and has no questions at this time. During evening insulin administration pt taught on how to self administer and pt completed task with stand by assistance. Pt independent in the room, ambulating the blackman. Pt reports overall feeling better.
[2024-12-24] MEDS: ACETAMINOPHEN 325 MG TABLET 650 MG PO (20:44)
[2024-12-24] MEDS: MELATONIN 3 MG TABLET PO (20:44)
[2024-12-24] MEDS: ENOXAPARIN 40 MG/0.4 ML INJ SUBCUT (20:45)
[2024-12-24] MEDS: INSULIN ASPART 100 UNIT/ML SUBCUT (20:46)
[2024-12-24] MEDS: SODIUM CHLORIDE 0.9 % (FLUSH) 10 ML SYRINGE 5 ML IVF (20:48)
[2024-12-25] VITALS (8 sets, daily range): BP systolic 108–128; BP diastolic 61–69; PULSE 73–89; RESP 14–16; TEMP 35.9–36.7; O2SAT 97–98; BMI 21.7
[2024-12-25] MEDS: INSULIN ASPART 100 UNIT/ML SUBCUT ×4 (01:40→21:51)
--- NOTE | 2024-12-25 04:19 | PC.NURSE ---
Pt BG seems to be under control. Diet education given. Pt son has same diagnosis and is very helpful with education process. Pt up IND and walking halls.
[2024-12-25] MEDS: LEVOTHYROXINE 112 MCG TABLET PO (05:34)
--- NOTE | 2024-12-25 05:38 | PC.NURSE ---
Pt States she still has blurred vision this morning. Right hand knuckles ache. up 6lbs since admission.
[2024-12-25 06:26] LABS: Hematocrit* 34.9 % (33.0-51.0); Hemoglobin* 11.8 gm/dL (12.0-16.0); Immature Granulocytes Abs Auto 0.04 K/uL (0.00-0.30); Immature Granulocytes Pct Auto 0.4 %; Mean Corpuscular HGB Conc 34 gm/dL (32-36); Mean Corpuscular Hemoglobin 30 pg (26-34); Mean Corpuscular Volume 88 fL (80-100); RDW Coefficient of Variation % 12.2 % (11.5-15.5); Red Blood Count* 3.95 m/uL (4.00-5.20); White Blood Count* 9.38 K/uL (4.50-11.00)
[2024-12-25 06:36] LABS: Chloride* 105 mmol/L (96-114); Sodium* 133 mmol/L (135-149)
[2024-12-25 06:37] LABS: Lymphocytes Absolute Auto 5.90 K/uL (0.90-2.90); Potassium* 3.5 mmol/L (3.6-5.1); Slide Review Reflex No
[2024-12-25 06:40] LABS: Anion Gap 2 mEq/L (7-15); Blood Urea Nitrogen* 10 mg/dL (7-30); Calcium* 9.2 mg/dL (8.4-10.6); Carbon Dioxide* 26 mmol/L (20-32); Creatinine* 0.6 mg/dL (0.5-1.5); Est. Creatinine Clearance* 40.81; Estimated Glomerular Filt Rate 96 ml/min; Glucose* 174 mg/dL (60-115)
[2024-12-25] MEDS: POTASSIUM BICARB 25 MEQ EFFERVESCENT TAB PO ×2 (08:48→09:32)
[2024-12-25] MEDS: INSULIN ASPART 100 UNIT/ML 8 UNIT SUBCUT (08:48)
[2024-12-25] MEDS: GABAPENTIN 600 MG TABLET PO ×4 (08:51→21:45)
[2024-12-25] MEDS: SODIUM CHLORIDE 0.9 % (FLUSH) 10 ML SYRINGE 5 ML IVF ×2 (08:53→21:45)
--- NOTE | 2024-12-25 11:01 | P.NUTASMT_ITS ---
Hospital Nutrition Assessment Patient Data Patient Gender: Female Patient Age: 69 Height: 5 ft 2 in (157.78 cm) Weight: 118 lb 6.4 oz (53.82 kg) Body Mass Index: 21.7 Usual Body Weight: 130 lb Weight Calculations [place] Body Weight (lbs): 110.00 [place] Body Weight (kg): 49.90 Percent of [place] Body Weight: 108 Adjusted Body Weight (lbs): 112.10 Adjusted Body Weight (kg): 50.85 Percent of Usual Body Weight: 91 Basal Energy Expenditure (BEE): 1128.03 Basal Energy Expenditure (BEE) Adjusted Weight: 1100.72 Activity/Stress Factors Injury Factor/Activity Factor Value: 1.2 Total Energy Requirements Kcal requirements (current wt): 1353.636 Kcal requirements (adj wt): 1320.864 Protein Need (current wt): 1.0 Total Protein (current wt): 53.705 Protein Need (adj wt): 1.0 Total Protein (adj wt): 50.850 Fluid Need (current wt): 30 Total Fluid (current wt): 1611.160 Fluid Need (adj wt): 30 Total Fluid (adj wt): 1525.50 Nutrition Assessment Diet Order: Regular Food Modified for Dysphagia: 7-Regular Liquid Modified for Dysphagia: 0-Thin Allergies: Pt reports Dairy allergy Appetite Prior to Admission: Good Appetite and Intake: 100% for all meals since admit Hx Appetite Changes: No Hx Weight Loss: Yes (pt reports about a 10-15lb weight loss the last few weeks before admit) Hx Weight Gain: No Nausea: No Vomiting: No Diarrhea: No Hx Constipation: No Chewing Difficulty: No Swallowing Difficulty: No Pressure Ulcer: No Diagnosis/Symptom or Procedure: DKA, hyperglycemia Clinical History: Medical history includes but not limited to Migraine headache, CLL (chronic lymphocytic leukemia) and Hypothyroidism. She was admitted with DKA and hyperglycemia, suspecting new late onset of type 1 diabetes mellitus. Current Living Situation: Home Medications Medications: reviewed. Lab Results Lab Results: reviewed. Education Dietary Topic: Diabetic Topic Comment: MAYURIN with MD consult for new onset of type 1 diabetes. MAYURIN visited with patient whom agreed to receive diet education related to diabetes. Patient reports she tries to eat a healthy diet. She will consume cranberry juice diluted with water. She also has a piece of dark chocolate with almonds daily which is her sweets for the day. She stopped drinking alcohol about 9 months ago. She includes fruits, vegetables, whole grains in her diet. She avoid dairy products due to an allergy. Diabetic diet education provided. Discussed basics of carbohydrate counting including sources of carbohydrates, serving sizes, and label reading. Discussed using the plate method for carbohydrate-controlled, balanced meals that include ? plate non-starchy vegetables, ? plate protein, and 3-4 servings of carbohydrates per meal (fruit, whole grains, legumes) and 1-2 per snack. Handouts provided to support discussion. RDN contact information provided and encouraged patient to call with questions. RDN to follow up as needed. Assessment/Plan Nutritional Assessment Summary: Patient reports about a 10-15 lbs weight loss 1- 2 months before this admit. This is likely due to hyperglycemia and undiagnosed diabetes. She reports her intakes have remained normal for her. Her meal intakes since admit have been 100%. Do not suspect malnutrition at this time due to normal intake.
[2024-12-25] MEDS: INSULIN ASPART 100 UNIT/ML 10 UNIT SUBCUT ×2 (13:09→18:01)
--- NOTE | 2024-12-25 16:46 | PM.IMPN1 ---
Assessment and Plan Assessment and plan (1) DKA, type 1: Problem comment: New onset hyperglycemia in the last 2-3 months. Suspect type 1 diabetes with late adult onset. Check antibodies, jarocho 65, insulin, tyrosine phosphatase 2 12/24: Off the insulin drip. Off of fluids. Tolerating a p.o. diet. New regimen of basal bolus. Lantus at 10, mealtime insulin at 8. Follow blood sugars carefully and likely discharge with outpatient endocrinology 12/25: Working with registered dietitian, hyperglycemia and appropriate insulin dosing, beta hydroxybutyrate positive (not surprising). Likely discharging in the morning given the amount of time in energy needed to integrate all of the new dosing and Education. Status: Suspected (2) Acute hyperglycemia: Problem comment: Fluids, insulin drip, close monitoring of electrolytes. 12/24 resolved Status: Acute (3) CLL (chronic lymphocytic leukemia): Problem comment: active surveillance Status: Acute (4) Hypothyroidism: Problem comment: TSH checked. Subclinical hypothyroidism with normal T4 Status: Acute Subjective Date Seen: 12/25/24 Interval history: Daily Progress Note - Hospital Medicine Day #: 3 CC: new type 1 DM; DKA 24 HOUR UPDATE: more rested; lots of questions for me about her plan, follow-up etc. admits to feeling stressed/overwhelmed. Notable Labs, Micro, Rads, Interventions: Afebrile. Blood pressure 108/62. Pulse 80. Respirations 16. 96% on room air. 52.7 kilos. CBC reflects that her white blood cell count has gone from 18.2 down to 13.2 Hemoglobin went from 13.9 down to 11.5. Her platelet count has remained stable and normal. Her pH is improved nicely. 7.28 up to 7.43 Her pseudo hyponatremia has resolved with her hyperglycemia. This morning we noted a sodium of 131. Normal renal function. Glucose 193. Anion gap of 5. Bicarb of 24. Her urine is cloudy with 4+ ketones. Minimal white blood cells. Negative LE and nitrite. No imaging this admission. Urine culture pending. EKG reviewed. Objective: Sleepy but quite insightful. Vitals: see above Lungs: Clear. Cardiac: S1S2. Disposition/Potential discharge - Home in 24 hours to 48 hours. Today I spent 50 minutes seeing the patient, reviewing Expanse and EPIC notes/diagnostics, discussing the care plan with our care time that includes social work, PT/OT, pharmacy, RT, longterm and documenting my impressions and plan in the medical record. Exam Const: Vital Signs, click to edit/add: Vital Signs - 24 hr 12/24/24 19:12 12/24/24 20:44 12/24/24 21:54 Temperature 97.8 F 97.8 F Pulse Rate 89 Pulse Rate [Left P ulse Oximeter] 79 Pulse Rate [Left R adial] Respiratory Rate 16 Blood Pressure [Le ft Arm] 114/64 Pulse Oximetry 99 Oxygen Delivery Me thod Room Air 12/24/24 22:06 12/24/24 22:18 12/25/24 01:45 Temperature 97.2 F L 97.6 F Pulse Rate Pulse Rate [Left P ulse Oximeter] 90 90 74 Pulse Rate [Left R adial] 78 Respiratory Rate 16 16 16 Blood Pressure [Le ft Arm] 109/54 L 110/61 Pulse Oximetry 96 97 Oxygen Delivery Ak thod Room Air Room Air 12/25/24 07:01 12/25/24 08:17 12/25/24 08:19 Temperature 97.0 F L Pulse Rate 73 Pulse Rate [Left P ulse Oximeter] 84 84 Pulse Rate [Left R adial] Respiratory Rate 16 16 Blood Pressure [Le ft Arm] 115/69 Pulse Oximetry 97 Oxygen Delivery Ak thod Room Air 12/25/24 11:22 Temperature 97.4 F L Pulse Rate Pulse Rate [Left P ulse Oximeter] 80 Pulse Rate [Left R adial] Respiratory Rate 16 Blood Pressure [Le ft Arm] 108/62 Pulse Oximetry 97 Oxygen Delivery Ak thod Room Air Labs Labs: Laboratory Results - last 24 hr 12/23/24 12/25/24 21:31 05:47 WBC 9.38 RBC 3.95 L Hgb 11.8 L Hct 34.9 MCV 88 MCH 30 MCHC 34 RDW Coeff of Maurizio 12.2 Plt Count 261 Neut % (Auto) 27.1 L Lymph % (Auto) 62.5 H [place] % (Auto) 7.1 Eos % (Auto) 2.2 Baso % (Auto) 0.7 Neut # (Auto) 2.50 Lymph # (Auto) 5.90 H [place] # (Auto) 0.70 Eos # (Auto) 0.21 Baso # (Auto) 0.07 Abs Immat Gran (auto) 0.04 Imm/Tot Granulo (auto) 0.4 Sodium 133 L Potassium 3.5 L Chloride 105 Carbon Dioxide 26 Anion Gap 2 L BUN 10 Creatinine 0.6 Estimated Creat Clear 40.81 Estimated GFR 96 Glucose 174 H Calcium 9.2 Beta-Hydroxybutyric Acd 3.29 H
--- NOTE | 2024-12-25 18:25 | PC.NURSE ---
end of shift. pt has been pleasant. no pain she is alert x3 but she seems to have memory issue. went over BS, and insulin, this am and at noon she did not remember how to do theses tasks. SL is patent. she is up ab francine. she is eating, drinking, and voiding. she is getting frustrated over diet and carbs,. she seems over whelmed at times. .
[2024-12-25] MEDS: ENOXAPARIN 40 MG/0.4 ML INJ SUBCUT (21:44)
[2024-12-25] MEDS: MELATONIN 3 MG TABLET PO (22:14)
[2024-12-25] MEDS: ACETAMINOPHEN 325 MG TABLET 650 MG PO (22:16)
[2024-12-26] MEDS: INSULIN ASPART 100 UNIT/ML SUBCUT ×3 (02:18→12:19)
[2024-12-26 02:28] VITALS: BP 97/60; PULSE 73; RESP 14; TEMP 36.2; O2SAT 98
[2024-12-26] MEDS: ACETAMINOPHEN 325 MG TABLET 650 MG PO ×2 (03:33→10:54)
[2024-12-26] MEDS: LEVOTHYROXINE 112 MCG TABLET PO (06:13)
--- NOTE | 2024-12-26 06:55 | PC.NURSE ---
[id number] Pt ind in room, ambulated halls during evening, educated patient how to use glucometer and administer insulin, explained sliding scale, did this twice during shift patient forget earlier teaching, this RN believed pt needs reinforcement and support to help manage new diabetes and insulin administration. asking and writing down appropriate questions. denies pain, tolerating PO intake, voiding without difficulty.
[2024-12-26 07:00] VITALS: BP 115/67; PULSE 87; RESP 16; TEMP 36.7; O2SAT 100
[2024-12-26 07:04] LABS: Hematocrit* 35.6 % (33.0-51.0); Hemoglobin* 11.8 gm/dL (12.0-16.0); Immature Granulocytes Abs Auto 0.06 K/uL (0.00-0.30); Immature Granulocytes Pct Auto 0.7 %; Mean Corpuscular HGB Conc 33 gm/dL (32-36); Mean Corpuscular Hemoglobin 30 pg (26-34); Mean Corpuscular Volume 91 fL (80-100); RDW Coefficient of Variation % 12.5 % (11.5-15.5); Red Blood Count* 3.90 m/uL (4.00-5.20); White Blood Count* 8.95 K/uL (4.50-11.00)
[2024-12-26 07:19] LABS: Lymphocytes Absolute Auto 5.90 K/uL (0.90-2.90); Slide Review Reflex No
[2024-12-26 07:39] LABS: Chloride* 101 mmol/L (96-114); Potassium* 3.7 mmol/L (3.6-5.1); Sodium* 135 mmol/L (135-149)
[2024-12-26 07:42] LABS: Anion Gap 8 mEq/L (7-15); Blood Urea Nitrogen* 10 mg/dL (7-30); Calcium* 9.0 mg/dL (8.4-10.6); Carbon Dioxide* 26 mmol/L (20-32); Creatinine* 0.6 mg/dL (0.5-1.5); Est. Creatinine Clearance* 40.81; Estimated Glomerular Filt Rate 96 ml/min; Glucose* 182 mg/dL (60-115)
[2024-12-26] MEDS: GABAPENTIN 600 MG TABLET PO (09:10)
[2024-12-26] MEDS: SODIUM CHLORIDE 0.9 % (FLUSH) 10 ML SYRINGE 5 ML IVF (09:16)
[2024-12-26] MEDS: INSULIN ASPART 100 UNIT/ML 8 UNIT SUBCUT ×2 (09:16→12:20)
--- NOTE | 2024-12-26 13:04 | P.DS_ITS ---
DS: Providers Provider Date Seen: 12/26/24 Date of admission: 12/23/24 19:27 Primary care physician: Kush Clarke MD Admitting Clinician: Arnav Guadarrama MD Consults: 12/23/24 20:39 Consult to Nutrition [CONS] Routine Comment: Reason for consult:: Nutritional Consult 12/26/24 Consult to Occupational Therapy [CONS] Routine Comment: Reason(s) for OT Consult:: Evaluate and Treat Any Restrictions?:: See Comment Comment: MOCA Attending Physician on discharge: Christel Yanez MD [facility] Date of Discharge: 12/26/24 DS: Diagnosis Discharge Diagnosis (1) Type 1 diabetes mellitus maturity onset: Status: Acute Problem details: -initial A1c greater than 14. Admit blood sugar 669. Ph 7.285. Anion gap 23. BHA 3.29. -admitted for mild DKA, new diagnosis of type 1, mature onset -insulin drip for 24 hours, closed her gap and was eating and drinking and feeling much. -discharge with glargine and aspart; basal bolus -follow-up for continue teaching, CGM, pump -referral made to [facility] (2) DKA, type 1: Status: Suspected Problem details: New onset hyperglycemia in the last 2-3 months. Suspect type 1 diabetes with late adult onset. Insulin antibody panal pending. 12/24: Off the insulin drip. Off of fluids. Tolerating a p.o. diet. New regimen of basal bolus. Lantus at 10, mealtime insulin at 8. Follow blood sugars carefully and likely discharge with outpatient endocrinology 12/25: Working with registered dietitian, hyperglycemia and appropriate insulin dosing, beta hydroxybutyrate positive (not surprising). Likely discharging in the morning given the amount of time in energy needed to integrate all of the new dosing and Education. (3) CLL (chronic lymphocytic leukemia): Status: Acute Problem details: active surveillance (4) Hypothyroidism: Status: Acute Problem details: TSH checked. Subclinical hypothyroidism with normal T4 DS: Summary Hospital Course Hospital Course: BRIEF HOSPITAL COURSE: Patient was admitted for 4 days. Kizzy presented with hyperglycemia, blurred vision and fatigue. She also reported polydipsia, polyuria. She was found to be in a DKA. She had no prior history of diabetes. Her initial blood sugar was 669. A1c is greater than 14. Anion gap was 23, pH 7.2, BHA 3.29. Insulin antibody panel was still pending at discharge. She is presumed to be a new type 1, mature onset diabetic. She was initiated on an insulin drip. She is insulin sensitive as we'd expect a type 1 to be. She closed her gap and a reversed her acidosis quickly. She was eating and ambulating normally at discharge. She was frustrated her vision had not improved yet. We did real-time teaching with her prescriptions. We are sending her home on insulin glargine at 12 units daily. She will also have bolus mealtime insulin of 8-12 units. Ultimately she will need to see endocrinology for home care. Likely she will have a CGM and pump. DISCHARGE MEDICATIONS: See Reconciled list - SIGNIFICANT CHANGES: Insulin glargine Insulin aspart Specific instructions to the patient and follow-up are outlined below. REVIEW OF SYSTEMS No new chest pain or dyspnea Pain controlled No voiding difficulties Tolerating diet challenge PHYSICAL EXAM: CONSTITUTIONAL: Conversive, good historian. A/O. Knows setting and context. GENERAL: Well-developed and above ideal body weight, in no respiratory distress. VITAL SIGNS: see record. HEENT: Sclerae are anicteric. No petechiae. CARDIAC: rhythm is regular. There is no S3 or rub. No harsh murmurs. Extremities show trace edema with symmetrical pulses. PULM: good air entry with no wheeze. NEURO: Speech is fluent. A brief neurologic exam is negative. SKIN: No rashes, petechiae, concerning changes PSYCHIATRIC: Euthymic. DISPOSITION: Home with Time spent on discharge 37 minutes. Status at Discharge Functional status at discharge: independent ambulation Overall status at discharge: patient is progressing back to baseline Time Spent with Patient Time attestation: Total time spent providing and/or coordinating discharge services: Time spent: Greater than 30 minutes Exam Const: Vital Signs, click to edit/add: Vital Signs - 24 hr 12/25/24 15:00 12/25/24 15:00 12/25/24 19:00 Temperature 97.1 F L 96.7 F L Pulse Rate [Left P ulse Oximeter] 82 82 86 Respiratory Rate 16 16 16 Blood Pressure [Le ft Arm] 122/64 128/67 Pulse Oximetry 98 98 Oxygen Delivery Me thod Room Air Room Air 12/25/24 23:00 12/26/24 02:28 Temperature 98.0 F 97.1 F L Pulse Rate [Left P ulse Oximeter] 89 73 Respiratory Rate 14 14 Blood Pressure [Le ft Arm] 114/63 97/60 Pulse Oximetry 98 98 Oxygen Delivery Me thod Room Air Room Air DS: Data Data Completed and Pending Labs on day of discharge: Labs from last 24 hours 12/26/24 06:25 WBC 8.95 RBC 3.90 L Hgb 11.8 L Hct 35.6 MCV 91 MCH 30 MCHC 33 RDW Coeff of Maurizio 12.5 Plt Count 234 Neut % (Auto) 23.9 L Lymph % (Auto) 65.7 H [place] % (Auto) 7.4 Eos % (Auto) 1.9 Baso % (Auto) 0.4 Neut # (Auto) 2.10 Lymph # (Auto) 5.90 H [place] # (Auto) 0.70 Eos # (Auto) 0.17 Baso # (Auto) 0.04 Abs Immat Gran (auto) 0.06 Imm/Tot Granulo (auto) 0.7 Sodium 135 Potassium 3.7 Chloride 101 Carbon Dioxide 26 Anion Gap 8 BUN 10 Creatinine 0.6 Estimated Creat Clear 40.81 Estimated GFR 96 Glucose 182 H Calcium 9.0 Discharge Plan Discharge Disposition: Home, Self-Care Date of Admission: 12/23/24 19:27 Attending Provider on Discharge: Christel Yanez Primary Care Provider: Kush Clarke Condition: Improved Anticipated Discharge Date/Time: 12/26/24 12:29 Discharge Medications: New insulin aspart U-100 100 unit/mL (3 mL) Insulin Pen 8 unit subcut TIDWM Qty: 15 0RF insulin glargine [Lantus Solostar U-100 Insulin] 100 unit/mL (3 mL) Insulin Pen 12 unit subcut DAILY Qty: 15 0RF dextrose 40 % gel 10 g PO Q15M PRN (Reason: hypoglycemia) Qty: 112.5 0RF Rx Instructions: until symptoms of low blood sugar are controlled (DME) Test Strips Misc See Rx Instructions .Route Qty: 120 0RF Rx Instructions: Test before meals and before bedtime. (DME) lancets Misc See Rx Instructions .Route Qty: 200 0RF Rx Instructions: Test before meals and before bedtime. (DME) blood-glucose meter Kit See Rx Instructions .Route Qty: 1 0RF Rx Instructions: Test before meals and before bedtime. (DME) pen needle, diabetic [1st Tier Unifine Pentips] 29 gauge x 1/2 needle See Rx Instructions .Route Qty: 100 0RF Rx Instructions: Test before meals and before bedtime. Continued gabapentin 600 mg tablet 600 mg PO QID levothyroxine 112 mcg tablet 112 mcg PO DAILY Qty: 90 3RF riboflavin (vitamin B2) 100 mg tablet 100 mg PO QDAY metronidazole 0.75 % cream 1 applic topical DAILY oxymetazoline [12 Hour Nasal Relief [place]] 0.05 % spray,non-aerosol 2 spray intranasal BID PRN lutein 20 mg capsule 20 mg PO DAILY Rx Instructions: give with meal/snack Kqzqarz-Muasrkbso-Eriu Complex 167 mg calcium- 83 mg-5 mg capsule 2 cap PO TID Hair,Skin and Nails Tablet 3 tab PO DAILY clobetasol 0.05 % cream 1 applic topical HS PRN estradiol [Estrace] 0.01 % (0.1 mg/gram) cream 1 g vaginal 2XW PRN eletriptan 40 mg tablet 40 mg PO DAILY PRN (Reason: migraine headache) valacyclovir [Valtrex] 1 gram tablet 1,000 mg PO BID PRN (Reason: cold sores) Qty: 10 1RF Rx Instructions: 1 tablet every 12 hours Discharge Orders: Discharge Order (Routine); Ordered 12/26/24 Ordered By: Christel Yanez Patient Education: Diabetes Type 1: Management (DC), Diabetes Type 1: Management (GEN) Additional Instructions: Goal for blood sugars is 100-300. It's more dangerous to be low than high. there are two types of insulin: -Long-acting (Insulin Glargine). This will be 12 units daily. Do this is the morning with breakfast -Short-acting (Insulin Aspart). This is the meal time insulin. 8 units per meal; given typically when you are 75% done with eating. If you are running low (80-150) its ok to lower the 12 units to 10 or 8 and its ok to lower the 8 units at meal time down to 6 or if its just a snack use 3. You should wait until you are at least 75% done with your meal before injecting the regular insulin. If you go low and have symptoms: sweaty, palpitations, weakness -- eat or drink something with sugar. I'm also sending you with a gel concentrate to put in your cheek, under your tongue to quickly raise the blood sugar. I want you to test four times a day. Before meals and before you go to bed. Of course you can check anytime you feel off. This will change when we transition you to the continuous glucose monitor and pump. This will be directed by your vehicle glass technician. Activity Level: Activity as Tolerated Discharge Diet: Regular Diet Detail: You eat healthy and I want you to continue to eat a variety of healthy foods. It is about adjusting insulin dosing for what you eat; not what you eat to control blood sugars. The biggest difference in type 1 vs type 2. Follow Up Appointments: [facility] [Provider Group] Referral Note: Endocrinology for *NEW* onset type 1 diabetes in a 69 y/o WF. Hospital follow-up for DKA and new DM diagnosis Quita Crawford, MSN, ASSISTANT PRODUCE MANAGER Kush Mccullough MD [Primary Care Provider, Internal Medicine] Referral Note: 1 week Forms: Take Me Home Taxi Info Instructions
--- NOTE | 2024-12-26 18:05 | PC.NURSE ---
Discharge - Pt alert, oriented, coopertive. Up independently in room, tolerating RA and regular diet/fluids. Pt asked many questions r/t new DM type 2 diagnosis and medication management. RN provided education and demonstration of medication administration per MD order. Pt stated she was sweating and needed a break when RN was providing education regarding insulin management. RN allowed pt to take break and attempted to re-approach with education. Pt able to verbalize understanding and demonstrate back how to set up and administer finger poke, set up glucometer, and prepare and administer insulin insulin. IV removed with catheter intact. Pt d/c'd to home with spouse at approximately 1430.
== END 2024-12-26 14:30 | disposition home or self-care (01) | DRG 638 ==
LOC: ED 19:04 → MEDSURG 12-24 12:45
PROVIDERS: Family Medicine; Admitting Provider Family Medicine; Emergency Provider Family Medicine; PCP Internal Medicine; Visit Provider Family Medicine
DX: E10.10 Type 1 diabetes mellitus with ketoacidosis without coma (principal); C91.10 Chronic lymphocytic leukemia of B-cell type not having achieved remission; E03.9 Hypothyroidism, unspecified; Z59.19 Other inadequate housing; Z91.89 Other specified personal risk factors, not elsewhere classified
CPT/HCPCS: 36415; 80048; 80053; 81001; 82010; 82803; 82962; 83036; 83605; 83735; 83880; 84439; 84443; 84484; 85025; 86140; 86337; 87086; 93005; 97165; 99284; 99291; A9270; J1650; J1815; J3590; J7030; J7120